=== PATIENT | female | born 1950 | race Caucasian/White ===

== ENCOUNTER → 2016-08-11 | Outpatient (CLI) | payer OTHER ==
--- NOTE | 2016-08-11 16:38 | MAMMOGRAPHY REPORT ---
BILATERAL DIGITAL SCREENING MAMMOGRAM WITH CAD: 08/11/2016 CLINICAL HISTORY: Routine screening. Patient has no complaints. TECHNIQUE: Bilateral CC and MLO views were obtained. Current study was also evaluated with a Comput er Aided Detection (CAD) system. COMPARISON: Comparison is made to exams dated: 08/08/2015 mammogram, 08/02/2014 mammogram, 08/01/2013 mammogram, 07/27/2012 mammogram, 07/24/2011 mammogram, and 07/22/2010 mammogram - [facility] [address]. BREAST COMPOSITION: The tissue of both breasts is heterogeneously dense, which may obscure small ma sses. FINDINGS: There is a stable grouping of coarse heterogeneous microcalcifications with associated nod ular asymmetry in the 5:00 to 6:00 posterior left breast. No new suspicious mass, architectural dis tortion or cluster of microcalcifications is seen bilaterally. IMPRESSION: ACR BI-RADS CATEGORY 1: NEGATIVE There is no mammographic evidence of malignancy. A 1 year screening mammogram is recommended. The p atient will receive written notification of the results. Approximately 10% of breast cancers are not detected with mammography. A negative mammographic repor t should not delay biopsy if a clinically suggestive mass is present. Heidy Roca M.D. ay/:08/11/2016 16:01:38 Account Installer: Bessy PEREIRA)(Quang), [facility] [address] letter sent: Normal 1/2 BI-RADS Code: ACR BI-RADS Category 1: Negative
== END | disposition home or self-care (01) ==
LOC: C.MAMM 09:21
PROVIDERS: ATTEND Obstetrics & Gynecology
DX: Z12.31 Encounter for screening mammogram for malignant neoplasm of breast (principal)

== ENCOUNTER → 2017-08-18 | Outpatient (CLI) | payer OTHER ==
--- NOTE | 2017-08-18 15:25 | MAMMOGRAPHY REPORT ---
BILATERAL DIGITAL SCREENING MAMMOGRAM TOMOSYNTHESIS WITH CAD: 08/18/2017 CLINICAL HISTORY: Routine screening. Patient has no complaints. TECHNIQUE: Breast tomosynthesis in addition to standard 2D mammography was performed. Current study was also evaluated with a Computer Aided Detection (CAD) system. COMPARISON: Comparison is made to exams dated: 08/11/2016 mammogram, 08/08/2015 mammogram, 08/02/2014 ma mmogram, 08/01/2013 mammogram, 07/27/2012 mammogram, and 07/24/2011 mammogram - [facility]. BREAST COMPOSITION: The tissue of both breasts is heterogeneously dense, which may obscure small mas ses. FINDINGS: There is a stable grouping of coarse heterogeneous calcifications and associated nodularity in the retroareolar posterior left breast. No suspicious mass, architectural distortion or cluster of microcalcifications is seen. IMPRESSION: ACR BI-RADS CATEGORY 1: NEGATIVE There is no mammographic evidence of malignancy. A 1 year screening mammogram is recommended. The pa tient will receive written notification of the results. Approximately 10% of breast cancers are not detected with mammography. A negative mammographic report should not delay biopsy if a clinically suggestive mass is present. Heidy Roca M.D. ay/:08/18/2017 14:10:47 [employer] Vulcanizer: Sandhya PEREIRA)(Quang), [facility] letter sent: Normal 1/2 BI-RADS Code: ACR BI-RADS Category 1: Negative
== END | disposition home or self-care (01) ==
LOC: C.MAMM 09:54
PROVIDERS: ATTEND Obstetrics & Gynecology
DX: Z12.31 Encounter for screening mammogram for malignant neoplasm of breast (principal)

== ENCOUNTER 2017-12-14 01:48 | Inpatient (IN) | payer OTHER ==
[2017-12-14] VITALS (42 sets, daily range): BP systolic 90–134; BP diastolic 44–83; PULSE 44–80; TEMP 36.7–36.9; O2SAT 95–100; Ht 165.1 cm; Wt 66.4 kg
[~2017-12-14] VITALS: Ht 165.1 cm; Wt 66.4 kg
[~2017-12-14 01:48] MED LIST: CALC600T9 PO; CHOL100010 PO; MULT-506 PO
[2017-12-14] MEDS ORDERED: ASPIRIN 324 MG CHEW PO STA (02:03)
[2017-12-14] MEDS ORDERED: SODIUM CHLORIDE 0.9% 1000ML 1,000 ML IV STA (02:03)
[2017-12-14] MEDS ORDERED: NITROGLYCERIN 0.4 MG SL PER TAB CHARGE ONE (02:04)
[2017-12-14] MEDS ORDERED: ASPIRIN 324 MG CHEW ONE (02:05)
--- NOTE | 2017-12-14 02:07 | EMERGENCY ROOM VISIT NOTE ---
History Report prepared by Yesy: Stephen Babb Under the Supervision of: Dr. Graham Ziegler M.D. First contact with patient: 01:55 Chief Complaint: CHEST PAIN Stated Complaint: CHEST PAIN/DISCOMFORT History of Present Illness The patient is a 67 year old female who presents to the Emergency Room with complaints of chest pain. The patient states she had the chest pain on Thursday while walking, and states it resolved. She states the pain came back today ( waxing and waning). She states she took Prilosec this evening and the pain resolved by dinner where she felt fine and had no pain, but states the pain came back this evening while she was asleep. She describes the pain as crushing , and notes radiation to her left shoulder. She did not nausea with the pain but denied SOB. She denies any significant past medical history. She denies taking ASA today. She denies a fever, chills, or any other complaints. The patient states she has had a previous stress test "years ago." The patient states she does have a significant cardiac history on her father's side. Review of Systems See HPI for pertinent positives & negatives. A total of 10 systems reviewed and were otherwise negative. Constitutional: No fever, No chills Respiratory: No cough, No shortness of breath Cardiovascular: + chest pain Abdomen: No pain, No nausea, No vomiting, No diarrhea, No constipation Integumentary: No rash Past Medical & Surgical Medical Problems: (1) AMI (acute myocardial infarction) Past Surgical: Hysterectomy Social History Smoking Status: Never Smoker Alcohol Use: occasionally (wine) Drug Use: none Occupation Status: retired Current/Historical Medications Scheduled Calcium Carbonate-Vitamin D (Calcium + D), 2 TAB PO QAM Cholecalciferol (Vitamin D), 1 TAB PO DAILY Multivitamin (Multivitamin), 1 TAB PO DAILY Allergies Coded Allergies: Penicillins (Verified Allergy, Severe, RASH, 12/14/17) Physical Exam Vital Signs Date Time Temp Pulse Resp B/P (MAP) Pulse Ox O2 Delivery O2 Flow Rate FiO2 12/14/17 03:25 36.7 77 18 101/51 99 Room Air 12/14/17 03:25 80 18 112/53 (72) 100 Room Air 12/14/17 03:15 84 18 113/64 (80) 100 Room Air 12/14/17 02:40 45 14 88/49 95 12/14/17 02:36 48 13 88/49 93 Nasal Cannula 2.0 12/14/17 02:35 49 12/14/17 02:32 70 25 118/71 93 Nasal Cannula 2.0 12/14/17 02:26 72 21 127/68 99 Nasal Cannula 2.0 12/14/17 02:26 74 18 127/68 98 Nasal Cannula 2.0 12/14/17 02:21 80 26 125/61 98 Nasal Cannula 2.0 12/14/17 02:16 74 16 138/70 99 Nasal Cannula 2.0 12/14/17 02:13 77 16 127/79 97 Nasal Cannula 2.0 12/14/17 02:06 98 Nasal Cannula 2.0 12/14/17 02:04 74 12/14/17 01:52 36.5 68 18 133/64 97 Room Air Physical Exam GENERAL: Anxious appearing and in mild distress. EYES: No scleral icterus, unremarkable pupils. ENT: Mucous membranes moist, no nasal congestion. NECK: No masses appreciated, no meningismus, trachea is midline. RESPIRATORY: No dyspnea. Clear to auscultation and equal bilaterally. No wheeze , no rhonchi. CARDIOVASCULAR: Regular rate and rhythm. No murmurs, rubs, gallops appreciated. GASTROINTESTINAL: Abdomen soft, nontender, no peritonitis. Bowel sounds positive. No masses appreciated. BACK: No midline tenderness, no CVA tenderness EXTREMITIES: Normal motion all extremities, no cyanosis, no edema. NEUROLOGIC: Alert and oriented, no acute motor or sensory deficits, no focal weakness, cranial nerves grossly intact. SKIN: No rash, no jaundice, no diaphoresis. Medical Decision & Procedures ER Provider Diagnostic Interpretation: X ray results are stated below per my interpretation: Chest: 1 view: No infiltrate, no effusion, normal cardiac border. Laboratory Results 12/14/17 02:05 Red Blood Count 4.33, Mean Corpuscular Volume 88.7, Mean Corpuscular Hemoglobin 28.9, Mean Corpuscular Hemoglobin Concent 32.6, Mean Platelet Volume 9.6, Neutrophils (%) (Auto) 71.9, Lymphocytes (%) (Auto) 20.5, Monocytes (%) (Auto) 5.3, Eosinophils (%) (Auto) 1.6, Basophils (%) (Auto) 0.5, Neutrophils # (Auto) 6.38, Lymphocytes # (Auto) 1.82, Monocytes # (Auto) 0.47, Eosinophils # (Auto) 0.14, Basophils # (Auto) 0.04 12/14/17 02:05 Test 12/14/17 02:05 12/14/17 02:09 12/14/17 02:16 12/14/17 03:04 White Blood Count 8.87 K/uL (4.8-10.8) Red Blood Count 4.33 M/uL (4.2-5.4) Hemoglobin 12.5 g/dL (12.0-16.0) Hematocrit 38.4 % (37-47) Mean Corpuscular Volume 88.7 fL (80-100) Mean Corpuscular Hemoglobin 28.9 pg (25-34) Mean Corpuscular Hemoglobin Concent 32.6 g/dl (32-36) Platelet Count 327 K/uL (130-400) Mean Platelet Volume 9.6 fL (7.4-10.4) Neutrophils (%) (Auto) 71.9 % Lymphocytes (%) (Auto) 20.5 % Monocytes (%) (Auto) 5.3 % Eosinophils (%) (Auto) 1.6 % Basophils (%) (Auto) 0.5 % Neutrophils # (Auto) 6.38 K/uL (1.4-6.5) Lymphocytes # (Auto) 1.82 K/uL (1.2-3.4) Monocytes # (Auto) 0.47 K/uL (0.11-0.59) Eosinophils # (Auto) 0.14 K/uL (0-0.5) Basophils # (Auto) 0.04 K/uL (0-0.2) RDW Standard Deviation 44.1 fL (36.4-46.3) RDW Coefficient of Variation 13.4 % (11.5-14.5) Immature Granulocyte % (Auto) 0.2 % Immature Granulocyte # (Auto) 0.02 K/uL (0.00-0.02) Prothrombin Time 10.5 SECONDS (9.0-12.0) Prothromb Time International Ratio 1.0 (0.9-1.1) Activated Partial Thromboplast Time 25.0 SECONDS (21.0-31.0) Partial Thromboplastin Ratio 1.0 Est Creatinine Clear Calc Drug Dose 54.0 ml/min Estimated GFR () 69.6 Estimated GFR (Non- 60.0 BUN/Creatinine Ratio 26.1 (10-20) Calcium Level 9.0 mg/dl (8.5-10.1) Total Creatine Kinase 91 U/L (26-192) Creatine Kinase MB 1.8 ng/ml (0.5-3.6) Creatine Kinase MB Ratio 2.0 (0-3.0) LDL Cholesterol Direct 134 mg/dl Bedside Hemoglobin 12.6 g/dl (12.0-16.0) Bedside Hematocrit 37 % (37-47) Bedside Sodium 142 mEq/L (135-144) Bedside Potassium 3.7 mEq/L (3.3-5.0) Bedside Chloride 102 mEq/L (101-112) Bedside Total CO2 27 mEq/l (24-31) Anion Gap 18.0 mmol/L (16-25) Bedside Blood Urea Nitrogen 25 mg/dl (7-18) Bedside Creatinine 1.0 mg/dl (0.6-1.3) Bedside Glucose (other) 119 mg/dl (70-99) Bedside Ionized Calcium (Liliam) 1.17 mmol/l (1.12-1.32) Bedside Troponin I < 0.030 ng/ml (0-0.045) Kaolin Activated Coagulation Time 186 SECONDS (94-140) Medications Administered Medications (Trade) Dose Ordered Sig/Frida Route Start Time Stop Time Status Last Admin Dose Admin Sodium Chloride 1,000 ml @ 999 mls/hr Q1H1M STAT IV 12/14/17 02:03 12/14/17 03:03 DC 12/14/17 02:09 999 MLS/HR Nitroglycerin (Nitrostat Tab) 0.4 mg Q5M PRN SL 12/14/17 02:15 12/14/17 03:39 DC 12/14/17 02:09 0.4 MG Aspirin (Aspirin Chew) 324 mg NOW STAT PO 12/14/17 02:03 12/14/17 02:05 DC 12/14/17 02:09 324 MG Midazolam HCl (Versed Inj) 2 mg STK-MED ONCE .ROUTE 12/14/17 02:32 12/14/17 02:33 DC 12/14/17 02:32 1 MG Fentanyl Citrate (Fentanyl Inj) 100 mcg STK-MED ONCE .ROUTE 12/14/17 02:32 12/14/17 02:33 DC 12/14/17 02:32 25 MCG Heparin Sodium (Porcine) (Heparin Iv Bolus) 10,000 unit STK-MED ONCE .ROUTE 12/14/17 02:32 12/14/17 02:33 DC 12/14/17 02:32 11,000 UNIT Ondansetron HCl (Zofran Inj) 4 mg STK-MED ONCE .ROUTE 12/14/17 03:02 12/14/17 03:03 DC 12/14/17 03:02 4 MG Atropine Sulfate (Atropine Sulfate) 1 mg STK-MED ONCE .ROUTE 12/14/17 03:12 12/14/17 03:13 DC 12/14/17 03:12 1 MG Ticagrelor (Brilinta Tab) 180 mg STK-MED ONCE PO 12/14/17 03:21 12/14/17 03:22 DC 12/14/17 03:21 180 MG ECG Per My Interpretation Rate (beats per minute): 64 Findings: ST elevation (Inferior), other (reciprocal changes noted. QTC 412) Comparison ECG Date: Inferior NE is new Medical Decision Ms. Mooyd is a pleasant 67 year old female who reports with chest pain. Pain was waxing and waning all day, and did resolve by dinner. Pain returned after dinner and worsened after taking Prilosec. New inferior NE noted on EKG when compared to prior. No previous EKG for comparison. She has minimal risk factors. Stuttering unstable angina over last few days with acute STEMI now. Heart alert called on arrival. Given SLNTG x 2 with resolve of CP. NSS infusion. Did have episode bradycardia/hypotension as going over to builder's labourer for with bolus fluids started. No evidence dissection and symptoms not consistent with PE. Differential Diagnosis: Cardiac Ischemia (STEMI, NSTEMI, Unstable Angina, etc), Aortic Dissection, Arrhythmia, Pulmonary Embolism, Pneumonia, Pneumothorax, MSK, Infectious, Pericarditis/Myocarditis, Esophageal Rupture, Gastrointestinal, amongst other pathologies entertained. Rechecks: 0215: Patient notes pain is now at a 3/10 and is no longer radiating. She denies abdominale or back pain. 0235: Patient became hypotensive and bradycardic just prior to going to [employer]. She was given a liter of IV fluids, and taken to the builder's labourer immediately under Dr. Brunson and Dr. Anaya's care. 0316: Patient is doing much better in the [employer] Medication Reconcilliation Current Medication List: was personally reviewed by me Blood Pressure Screening Patient's blood pressure: Normal blood pressure Impression Primary Impression: Acute ST elevation myocardial infarction (STEMI) of inferior wall Critical Care I have personally spent greater than 45 minutes of critical care time in the direct management of this patient. This was a life/limb threatening event. This includes time spent evaluating patient, direct bedside care, chart review, placing orders, interpretation of diagnostic studies, discussion with consultants, patient, and family members, as well as other required patient management activities. This 45 minutes is in excess of all separately billable procedures. Scribe Attestation The scribe's documentation has been prepared under my direction and personally reviewed by me in its entirety. I confirm that the note above accurately reflects all work, treatment, procedures, and medical decision making performed by me. Departure Information Dispostion Other (Sent to [employer]) Referrals Samson Gómez M.D. (PCP) Patient Instructions My [facility]
[2017-12-14] MEDS ORDERED: NITROGLYCERIN 0.4 MG SL PER TAB CHARGE SL PRN ×2 (02:15→03:45)
[2017-12-14 02:16] LABS: BASO % 0.5 %; BASO ABS # 0.04 K/uL (0-0.2); EOS % 1.6 %; EOS ABS # 0.14 K/uL (0-0.5); HEMATOCRIT 38.4 % (37-47); HEMOGLOBIN 12.5 g/dL (12.0-16.0); IG# 0.02 K/uL (0.00-0.02); LYMPH % 20.5 %; LYMPH ABS # 1.82 K/uL (1.2-3.4); MEAN CELL VOLUME 88.7 fL (80-100); MEAN CORPUSCULAR HEMOGLOBIN 28.9 pg (25-34); MEAN CORPUSCULAR HGB CONC 32.6 g/dl (32-36); MEAN PLATELET VOLUME 9.6 fL (7.4-10.4); MONO % 5.3 %; MONO ABS # 0.47 K/uL (0.11-0.59); NEUT % 71.9 %; NEUT ABS # 6.38 K/uL (1.4-6.5); PLATELET COUNT 327 K/uL (130-400); RED CELL DISTRIBUTION WIDTH CV 13.4 % (11.5-14.5); RED CELL DISTRIBUTION WIDTH SD 44.1 fL (36.4-46.3); WHITE BLOOD COUNT 8.87 K/uL (4.8-10.8)
[2017-12-14 02:22] LABS: ISTAT IONIZED CALCIUM 1.17 mmol/l (1.12-1.32); ISTAT POTASSIUM 3.7 mEq/L (3.3-5.0)
[2017-12-14] MEDS ORDERED: HEPARIN SOD (PORCINE) 1000 UNIT/ML 10 ML VIAL ONE (02:32)
[2017-12-14] MEDS ORDERED: NiCARDipine HCL INJ 2.5 MG/ML 10 ML AMP ONE (02:32)
[2017-12-14] MEDS ORDERED: FENTANYL CITRATE INJ 50 MCG/1 ML 2 ML VIAL ONE (02:32)
[2017-12-14] MEDS ORDERED: NITROGLYCERIN/D5W 100MCG/ML 20ML SYR ONE (02:32)
[2017-12-14] MEDS ORDERED: MIDAZOLAM HCL 1 MG/ML 2ML VIAL ONE (02:32)
--- NOTE | 2017-12-14 02:35 | Critical Care Consultation ---
Critical Care Consultation Date of Consultation: Dec 14, 2017. Attending Physician: Fazal Joseph MD Reason for Consultation: Post cardiac cath History of Present Illness Patient is a 67-year-old female without significant past medical history who presented to [facility] emergency department with chief complaint of chest pain. It started initially on Thursday with walking and resolved with rest. It was increasing in severity today. The pain came back this evening and awoke her from sleep, the pain is described as crushing and radiating to the left shoulder. There was no nausea, no dyspnea. Past Medical/Surgical History None Social History Smoking Status: Never Smoker Alcohol Use: Approximately daily glass of wine, no history of withdrawal Drug Use: none Occupation Status: retired (Former cardiac nurse) Allergies Coded Allergies: Penicillins (Verified Allergy, Severe, RASH, 12/14/17) Home Medications Scheduled Calcium Carbonate-Vitamin D (Calcium + D), 2 TAB PO QAM Cholecalciferol (Vitamin D), 1 TAB PO DAILY Multivitamin (Multivitamin), 1 TAB PO DAILY Current Inpatient Medications Current Inpatient Medications Medications (Trade) Dose Ordered Sig/Frida Route Start Time Stop Time Status Last Admin Dose Admin Sodium Chloride 1,000 ml @ 999 mls/hr Q1H1M STAT IV 12/14/17 02:03 12/14/17 03:03 12/14/17 02:09 999 MLS/HR Nitroglycerin (Nitrostat Tab) 0.4 mg Q5M PRN SL 12/14/17 02:15 01/13/18 02:14 12/14/17 02:09 0.4 MG Review of Systems A 10 point review of systems has been obtained and is otherwise negative. Respiratory: No cough, No sputum, No wheezing, No shortness of breath, No dyspnea on exertion, No dyspnea at rest, No hemoptysis, No problem reported Cardiovascular: + chest pain, No edema, No claudication, No palpitations Abdomen: No pain, No nausea, No vomiting, No diarrhea, No constipation, No GI bleeding, No problem reported Physical Exam Date Time Temp Pulse Resp B/P (MAP) Pulse Ox O2 Delivery O2 Flow Rate FiO2 12/14/17 02:13 77 16 127/79 97 Nasal Cannula 2.0 12/14/17 02:04 74 12/14/17 01:52 36.5 68 18 133/64 97 Room Air General Appearance: well-appearing, WD/WN Head: normocephalic, atraumatic Neck: normal range of motion, trachea midline, no stridor Respiratory: breath sounds normal Cardiovasular: regular rate/rhythm, normal S1S2 Abdomen: non tender, normal bowel sounds Upper Extremities: no edema Lower Extremities: no edema Neuro: alert, oriented x 3, normal motor exam Laboratory Results Last 24 Hours Test 12/14/17 02:05 12/14/17 02:09 12/14/17 02:16 White Blood Count 8.87 K/uL Red Blood Count 4.33 M/uL Hemoglobin 12.5 g/dL Hematocrit 38.4 % Mean Corpuscular Volume 88.7 fL Mean Corpuscular Hemoglobin 28.9 pg Mean Corpuscular Hemoglobin Concent 32.6 g/dl Platelet Count 327 K/uL Mean Platelet Volume 9.6 fL Neutrophils (%) (Auto) 71.9 % Lymphocytes (%) (Auto) 20.5 % Monocytes (%) (Auto) 5.3 % Eosinophils (%) (Auto) 1.6 % Basophils (%) (Auto) 0.5 % Neutrophils # (Auto) 6.38 K/uL Lymphocytes # (Auto) 1.82 K/uL Monocytes # (Auto) 0.47 K/uL Eosinophils # (Auto) 0.14 K/uL Basophils # (Auto) 0.04 K/uL RDW Standard Deviation 44.1 fL RDW Coefficient of Variation 13.4 % Immature Granulocyte % (Auto) 0.2 % Immature Granulocyte # (Auto) 0.02 K/uL Prothrombin Time 10.5 SECONDS Prothromb Time International Ratio 1.0 Activated Partial Thromboplast Time 25.0 SECONDS Partial Thromboplastin Ratio 1.0 Sodium Level 140 mmol/L Potassium Level 3.6 mmol/L Chloride Level 105 mmol/L Carbon Dioxide Level 28 mmol/L Anion Gap 7.0 mmol/L 18.0 mmol/L Blood Urea Nitrogen 25 mg/dl Creatinine 0.97 mg/dl Est Creatinine Clear Calc Drug Dose 54.0 ml/min Estimated GFR () 69.6 Estimated GFR (Non- 60.0 BUN/Creatinine Ratio 26.1 Random Glucose 117 mg/dl Calcium Level 9.0 mg/dl Total Creatine Kinase 91 U/L Creatine Kinase MB 1.8 ng/ml Creatine Kinase MB Ratio 2.0 Troponin I 0.045 ng/ml Bedside Hemoglobin 12.6 g/dl Bedside Hematocrit 37 % Bedside Sodium 142 mEq/L Bedside Potassium 3.7 mEq/L Bedside Chloride 102 mEq/L Bedside Total CO2 27 mEq/l Bedside Blood Urea Nitrogen 25 mg/dl Bedside Creatinine 1.0 mg/dl Bedside Glucose (other) 119 mg/dl Bedside Ionized Calcium (Liliam) 1.17 mmol/l Bedside Troponin I < 0.030 ng/ml Last 24 Hours Test 12/14/17 02:03 12/14/17 02:05 12/14/17 02:09 12/14/17 02:16 Creatine Kinase MB Ratio White Blood Count 8.87 K/uL Red Blood Count 4.33 M/uL Hemoglobin 12.5 g/dL Hematocrit 38.4 % Mean Corpuscular Volume 88.7 fL Mean Corpuscular Hemoglobin 28.9 pg Mean Corpuscular Hemoglobin Concent 32.6 g/dl Platelet Count 327 K/uL Mean Platelet Volume 9.6 fL Neutrophils (%) (Auto) 71.9 % Lymphocytes (%) (Auto) 20.5 % Monocytes (%) (Auto) 5.3 % Eosinophils (%) (Auto) 1.6 % Basophils (%) (Auto) 0.5 % Neutrophils # (Auto) 6.38 K/uL Lymphocytes # (Auto) 1.82 K/uL Monocytes # (Auto) 0.47 K/uL Eosinophils # (Auto) 0.14 K/uL Basophils # (Auto) 0.04 K/uL RDW Standard Deviation 44.1 fL RDW Coefficient of Variation 13.4 % Immature Granulocyte % (Auto) 0.2 % Immature Granulocyte # (Auto) 0.02 K/uL Bedside Hemoglobin 12.6 g/dl Bedside Hematocrit 37 % Bedside Sodium 142 mEq/L Bedside Potassium 3.7 mEq/L Bedside Chloride 102 mEq/L Bedside Total CO2 27 mEq/l Anion Gap 18.0 mmol/L Bedside Blood Urea Nitrogen 25 mg/dl Bedside Creatinine 1.0 mg/dl Bedside Glucose (other) 119 mg/dl Bedside Ionized Calcium (Liliam) 1.17 mmol/l Bedside Troponin I < 0.030 ng/ml Diagnostic Results Reviewed the chest x-ray dated December 14, 2017: My interpretation no acute disease process. Assessment & Plan PLAN: Neuro: Chest pain -Nitrates with morphine as needed for pain Resp: Supplemental oxygen as needed CV: Acute myocardial infarction -Discussed with cardiology -Status post successful PCI -Trend troponins -Aspirin given in the emergency department -High-dose statin Fluids/Renal: Maintenance fluid ID: No overt infectious disease concerns at this time GI/Nutrition: Check fasting lipid profile Endocrine: Hyperglycemia -Check A1c Vascular access: Peripheral IVs Code Status: Full code
[2017-12-14 02:39] LABS: CKMB 1.8 ng/ml (0.5-3.6); CREATININE 0.97 mg/dl (0.60-1.20); POTASSIUM 3.6 mmol/L (3.5-5.1)
[2017-12-14] MEDS ORDERED: ONDANSETRON INJ 2 MG/ML 2 ML VIAL ONE (03:02)
[2017-12-14] MEDS ORDERED: ATROPINE SULFATE 0.1 MG/ML 10 ML SYR ONE (03:12)
--- NOTE | 2017-12-14 03:15 | CARDIOLOGY CONSULTATION ---
DATE OF CONSULTATION: 12/14/2017 CONSULTATION REQUESTED BY: Dr. Ziegler. REASON FOR CONSULTATION: Heart alert/inferior NSTEMI. HISTORY OF PRESENT ILLNESS: Mrs. Moody is a very pleasant 67-year-old woman with no real past medical history who presented to the Emergency Department tonight with acute onset chest pain, found to have inferior ST elevations on her presenting EKG. The patient states that she has been having intermittent chest discomfort for the last 48 hours. Pain most notable with exertion, stating that she was walking around [facility] on Thursday, 2 days ago, and noted initially the discomfort. Yesterday while out in the hot sun, again had an episode of chest pain for which she took antacids, but pain relieved quickly. Tonight at approximately midnight, patient was awoken with severe 9/10 chest pressure with some radiation to her left arm and as a result presented to the Emergency Department acutely. In the ED, initial EKG showed inferior ST elevations and a heart alert was activated. She was given sublingual nitroglycerin with relief of chest pain. PAST MEDICAL HISTORY: No significant medical problems. Reports a prior episode of atypical chest pain in 2000 during which she had a stress test which reportedly was negative. FAMILY HISTORY: Heart disease on father's side, but father had no premature coronary artery disease. SOCIAL HISTORY: Denies heavy alcohol or illicit drugs. Previously worked as an ICU nurse at [employer], now retired. Her was a bridal gown fitter, but 20 years ago. REVIEW OF SYSTEMS: Not obtained in the setting of emergent situation. HOME MEDICATIONS: Include calcium carbonate/vitamin D, cholecalciferol, multivitamin. ALLERGIES: PENICILLINS. PHYSICAL EXAMINATION: VITAL SIGNS: Temperature 36.5, pulse 72, blood pressure 127/68, satting 99% on 2 liters. GENERAL: The patient appears comfortable in no acute distress. HEENT: Sclerae are anicteric. Oropharynx is clear. Mucous membranes are moist. NECK: Supple with no lymphadenopathy. LUNGS: Clear to auscultation bilaterally. CARDIAC: She has a regular rate and rhythm with no murmurs, rubs, or gallops. ABDOMEN: Soft, nontender, nondistended with positive bowel sounds. EXTREMITIES: Warm. She has no significant lower extremity edema. She has 2+ distal radial pulses. LABORATORY DATA: White blood cell count 8.9, hemoglobin of 12.5, platelets of 327. Sodium 142, potassium 3.7, BUN of 25, creatinine 1.0. Initial troponin was negative. Chest x-ray showed no acute cardiopulmonary process. IMPRESSION AND PLAN: Inferior ST segment elevation myocardial infarction. Mrs. Moody is here with stuttering chest pain over the last 2 days, becoming more severe and persistent this evening with presenting EKG consistent with inferior STEMI. We will plan to proceed with emergent cardiac catheterization to evaluate for potential RCA occlusion. Risks, benefits, and alternatives to the procedure were discussed with patient and she is willing to proceed. Further recommendations pending findings of cardiac catheterization. JERALD
--- NOTE | 2017-12-14 03:20 | Pre Sedation Assessment ---
Pre Sedation Assessment General Date of Sedation: Dec 14, 2017. Vital Signs Past 12 Hours Date Time Temp Pulse Resp B/P (MAP) Pulse Ox O2 Delivery O2 Flow Rate FiO2 12/14/17 02:40 45 14 88/49 95 12/14/17 02:36 48 13 88/49 93 Nasal Cannula 2.0 12/14/17 02:35 49 12/14/17 02:32 70 25 118/71 93 Nasal Cannula 2.0 12/14/17 02:26 72 21 127/68 99 Nasal Cannula 2.0 12/14/17 02:26 74 18 127/68 98 Nasal Cannula 2.0 12/14/17 02:21 80 26 125/61 98 Nasal Cannula 2.0 12/14/17 02:16 74 16 138/70 99 Nasal Cannula 2.0 12/14/17 02:13 77 16 127/79 97 Nasal Cannula 2.0 12/14/17 02:06 98 Nasal Cannula 2.0 12/14/17 02:04 74 12/14/17 01:52 36.5 68 18 133/64 97 Room Air Review Cardiovascular: regular rate, rhythm, no edema Lungs: chest non-tender, lungs clear Pre-Sedation Airway Assessment Smoking Status: Never Smoker Hx of Sleep Apnea: No Hx of difficult intubation: No Short Thick Neck: No Thyro-mental Distance: > 3 Finger Breadths Mallampati Classification: Class III ASA Classification: Class IV Procedure Planning Contraindications for Sedation: None Current Medications Reviewed: Yes Notes The planned sedation has been discussed with the patient. Informed Consent was obtained. I have identified the patient, determined the appropriateness of sedation and have assessed the patient immediately prior to the procedure. All medicine(s) and interventions are by my order.
--- NOTE | 2017-12-14 03:20 | Post Sedation Assessment ---
Post Sedation Assessment General Date of Sedation Dec 14, 2017. Vital Signs: Vital Signs Past 12 Hours Date Time Temp Pulse Resp B/P (MAP) Pulse Ox O2 Delivery O2 Flow Rate FiO2 12/14/17 02:40 45 14 88/49 95 12/14/17 02:36 48 13 88/49 93 Nasal Cannula 2.0 12/14/17 02:35 49 12/14/17 02:32 70 25 118/71 93 Nasal Cannula 2.0 12/14/17 02:26 72 21 127/68 99 Nasal Cannula 2.0 12/14/17 02:26 74 18 127/68 98 Nasal Cannula 2.0 12/14/17 02:21 80 26 125/61 98 Nasal Cannula 2.0 12/14/17 02:16 74 16 138/70 99 Nasal Cannula 2.0 12/14/17 02:13 77 16 127/79 97 Nasal Cannula 2.0 12/14/17 02:06 98 Nasal Cannula 2.0 12/14/17 02:04 74 12/14/17 01:52 36.5 68 18 133/64 97 Room Air Post Procedure Recovery Score Activity: (2) Moves 4 extremities * Respiration: (2) Deep breath/cough Circulation: (2) +/-20% PreAnes Value Consciousness: (2) Fully Awake Oxygen Saturation: (2) > 92% On Room Air Post Anesthesia Score: 10 Discharge Sedation Level of Care: Fast Track Phase II Post Sedation Plan On clinical assessment, the patient appears to have tolerated the sedation without complications. Patient is recovering as anticipated. Patient will continue to be monitored by nursing and may be discharged when sedation discharge criteria are met per below protocol. Upon Completions of procedure and additional 15 minutes continue every 5 minute vital signs and the P.A.R. score; then discharge to a Phase I or Fast Track to Phase II per the following guidelines: * Discharge Patient to appropriate Phase II area if PAR is 8 or greater or return to pre- procedure baseline. The post - procedure orders will be as directed. * If PAR score is less than 8 or not return to pre-procedure baseline then patient will follow Phase I monitoring till PAR is reached for Phase II. The Phase I may be done in procedure room or may call to secure a Phase I area. * If naloxone or flumazenil are used for reversal, hold in Phase I for an additional 60 -120 minutes before discharge to Phase II. Please call the Sedation Physician to re-evaluate and complete post-note for discharge to Phase II area. Do NOT discharge from procedure sedation or Phase 1 until post- sedation evaluation note is complete by procedure /sedation MD Sedation Discharge Instructions to be given to the patient at discharge to home.
[2017-12-14] MEDS ORDERED: TICAGRELOR 90 MG TAB PO ONE (03:21)
--- NOTE | 2017-12-14 03:31 | Cardiac Catheterization ---
Procedure Note Procedure Date Dec 14, 2017. Pre-Procedure Diagnosis STEMI AUC Score 9 Post-Procedure Diagnosis Severe CAD, Successful PCI, Normal LV Systolic Function, Normal Intracardiac Pressures Procedure(s) Performed Coronary Angiography, Left Heart Cath, Drug Eluting Stent Handmade Tile Artist Boy Single Needle Operator(s) contino Estimated Blood Loss <15 Medication(s) Atropine, Fentanyl, Heparin, Nicardipine, Versed, Lidocaine 1% Ticagrelor Summary of Findings Indication: STEMI/Heart Alert Access: 6Fr right radial artery Catheters: Ikari 3.5 guide Findings: LM - Luminal irregularities LAD - Moderate caliber vessel, 50% mid segment stenosis after 2nd diagonal; distal vessel tapers to apex. 2nd diagonal without significant disease. LAD gives left to right collaterals to R-PDA/PLB. Circumflex - Moderate caliber vessel, gives off large OM1 with 30-40% proximal disease. RCA - Dominant, large caliber vessel, diffuse 20-30% mid segment disease; acute subtotal occlusion of distal segment with thrombus. LVEDP - 11; LVEF 55% with inferior hypokinesis -- PCI -- Antithrombotic therapy: Heparin, Ticagrelor Procedure: RCA cannulated with Ikari left 3.5 guide BMW wire passed across lesion into R-PLB Distal RCA lesion predilated with 2.5 compliant balloon Atropine for bradycardia, fluids for relative hypotension. Dilated lesion stented with 3.5 x 18 [place] TIN Stent post-dilated with 3.75 noncompliant balloon IC vasodilators administered for spasm Post procedure HEBER 3 flow, stent well expanded with minimal residual stenosis and no apparent cardiac complications. Arterial Closure: TR Band Summary: 1. Inferior STEMI/Acute on chronic subtotal distal RCA occlusion 2. Mild to moderate non-culprit vessel coronary artery disease - 50% mid LAD - 30-40% proximal OM1 3. Normal intracardiac filling pressure. Preserved LV function. 4. Successful PCI of distal RCA with single drug-eluting stent (3.5 x 18 [place] TIN; post-dilated with 3.75 NC). Recommendations: Admit to ICU for continued monitoring Loaded with Ticagrelor 180mg in label sewer Continue dual-antiplatelet therapy for at least 1 year. Trend troponins until peak, Check Echo Uptitrate beta-cheyenne/ANDREW as BP allows High-dose statin Consult cardiac Rehab Hemodynamics Rest Ao: 108/44/73 Final Ao: 105/47/73 LV: 108/11 Recommendations PCI without planned CABG Specimens None Radiation Exposure (mGy) 1749 Contrast (mls) 100 Opti Fluids (cc crystalloids) 280 NSS Drains none Anesthesia moderate Procedural Complication(s) None Disposition ICU ACC Data Cardiac Status Clinical evaluation leading to the procedure CAD Presntation: STEMI Anginal Classification: CCS IV Heart Failure: No, NYHA Class: CCS I Cardiogenic Shock w/in 24Hrs: No Cardiac Arrest w/in 24Hrs: No Imaging studies past 6 months: No Stress studies past 6 months: No Closure Device Percutaneous Entry Location: Radial Closure Device: Radial Band Recommendations: PCI without planned CABG PCI Indication: Immediate PCI for STEMI Lesion Segment Name: Distal RCA Culprit Artery: Yes Stenosis Prior to Rx (%): 100 Chronic Total Occlusion: No IVUS: No FFR: No Pre-Procedure HEBER Flow: 0 Previously Treated Lesion: No Lesion Complexity: Non-High/Non-C Lesion Length (mm): 12 Thrombus Present: Yes Bifurcation Lesion: No Guidewire Across Lesion: Yes Guidewire: Stenosis Post-Procedure (%): 0 Post-Procedure HEBER Flow: 3 Device(s) Deployed: Yes Intraprocedure Events Significant Dissection: No Perforation: No
[2017-12-14] MEDS ORDERED: ACETAMINOPHEN 325 MG TAB PO PRN (03:45)
[2017-12-14] MEDS ORDERED: ONDANSETRON INJ 2 MG/ML 2 ML VIAL IV PRN (03:45)
[2017-12-14] MEDS ORDERED: SODIUM CHLORIDE 0.9% 1000ML 1,000 ML IV SCH (04:00)
--- NOTE | 2017-12-14 04:18 | History and Physical ---
History & Physical Date & Time of Service: Dec 14, 2017 at 04:02 Chief Complaint: AMI Primary Care Physician: Samson Gómez M.D. History of Present Illness Source: patient Patient is an 83 year old female with no significant past medical history that presented to [facility] with chest pain. She notes that chest pain began two days ago when she was walking in [place]. It went away with rest. The chest pain has been coming and going since then and lasting several minutes at a time. She did take an antacid which helped with the pain. At approximately 11pm last night she started having 9/10 chest pain which woke her from her sleep. This pain now radiated to her jaw and down her left arm therefore she came to the ED. She did have associated shortness of breath with the chest pain. In the ED her EKG showed ST depressions. She had a drop in her systolic blood pressure to the 80' s in the ED therefore she was taken immediately to the corn lab technician. She was found to have a occlusion of her RCA and had a stent placed. She was then transferred to the ICU for further monitoring. Past Medical/Surgical History Medical Problems: (1) AMI (acute myocardial infarction) Family History Fathers side with many relatives with heart disease. Social History Smoking Status: Never Smoker Alcohol Use: Approximately daily glass of wine, no history of withdrawal Drug Use: none Housing status: lives alone Occupational Status: retired (Former cardiac nurse) Allergies Coded Allergies: Penicillins (Verified Allergy, Severe, RASH, 12/14/17) Home Medications Scheduled Calcium Carbonate-Vitamin D (Calcium + D), 2 TAB PO QAM Cholecalciferol (Vitamin D), 1 TAB PO DAILY Multivitamin (Multivitamin), 1 TAB PO DAILY Review of Systems 10 systems reviewed and negative except as noted in the HPI Physical Exam Vital Signs Date Time Temp Pulse Resp B/P (MAP) Pulse Ox O2 Delivery O2 Flow Rate FiO2 12/14/17 03:25 80 18 112/53 (72) 100 Room Air 12/14/17 03:15 84 18 113/64 (80) 100 Room Air 12/14/17 02:40 45 14 88/49 95 12/14/17 02:36 48 13 88/49 93 Nasal Cannula 2.0 12/14/17 02:35 49 12/14/17 02:32 70 25 118/71 93 Nasal Cannula 2.0 12/14/17 02:26 72 21 127/68 99 Nasal Cannula 2.0 12/14/17 02:26 74 18 127/68 98 Nasal Cannula 2.0 12/14/17 02:21 80 26 125/61 98 Nasal Cannula 2.0 12/14/17 02:16 74 16 138/70 99 Nasal Cannula 2.0 12/14/17 02:13 77 16 127/79 97 Nasal Cannula 2.0 12/14/17 02:06 98 Nasal Cannula 2.0 12/14/17 02:04 74 12/14/17 01:52 36.5 68 18 133/64 97 Room Air General Appearance: WD/WN, no apparent distress ENT: hearing grossly normal, pharynx normal Neck: supple, no adenopathy, no JVD Respiratory/Chest: lungs clear, no respiratory distress, no accessory muscle use Cardiovascular: regular rate, rhythm, normal peripheral pulses, + systolic murmur (2/6 at the LUSB) Abdomen/GI: normal bowel sounds, non tender, soft Back: normal inspection, no muscle spasm Extremities/Musculoskelatal: normal inspection, no calf tenderness, no pedal edema, non-tender Neurologic/Psych: alert, normal mood/affect, oriented x 3 Skin: normal color, warm/dry, no rash Diagnostics Laboratory Results Results Past 24 Hours Test 12/14/17 02:05 12/14/17 02:09 12/14/17 02:16 12/14/17 03:04 Range/Units White Blood Count 8.87 4.8-10.8 K/uL Red Blood Count 4.33 4.2-5.4 M/uL Hemoglobin 12.5 12.0-16.0 g/dL Hematocrit 38.4 37-47 % Mean Corpuscular Volume 88.7 80-100 fL Mean Corpuscular Hemoglobin 28.9 25-34 pg Mean Corpuscular Hemoglobin Concent 32.6 32-36 g/dl Platelet Count 327 130-400 K/uL Mean Platelet Volume 9.6 7.4-10.4 fL Neutrophils (%) (Auto) 71.9 % Lymphocytes (%) (Auto) 20.5 % Monocytes (%) (Auto) 5.3 % Eosinophils (%) (Auto) 1.6 % Basophils (%) (Auto) 0.5 % Neutrophils # (Auto) 6.38 1.4-6.5 K/uL Lymphocytes # (Auto) 1.82 1.2-3.4 K/uL Monocytes # (Auto) 0.47 0.11-0.59 K/uL Eosinophils # (Auto) 0.14 0-0.5 K/uL Basophils # (Auto) 0.04 0-0.2 K/uL RDW Standard Deviation 44.1 36.4-46.3 fL RDW Coefficient of Variation 13.4 11.5-14.5 % Immature Granulocyte % (Auto) 0.2 % Immature Granulocyte # (Auto) 0.02 0.00-0.02 K/uL Prothrombin Time 10.5 9.0-12.0 SECONDS Prothromb Time International Ratio 1.0 0.9-1.1 Activated Partial Thromboplast Time 25.0 21.0-31.0 SECONDS Partial Thromboplastin Ratio 1.0 Sodium Level 140 136-145 mmol/L Potassium Level 3.6 3.5-5.1 mmol/L Chloride Level 105 98-107 mmol/L Carbon Dioxide Level 28 21-32 mmol/L Anion Gap 7.0 18.0 16-25 mmol/L Blood Urea Nitrogen 25 7-18 mg/dl Creatinine 0.97 0.60-1.20 mg/dl Est Creatinine Clear Calc Drug Dose 54.0 ml/min Estimated GFR () 69.6 Estimated GFR (Non- 60.0 BUN/Creatinine Ratio 26.1 10-20 Random Glucose 117 70-99 mg/dl Calcium Level 9.0 8.5-10.1 mg/dl Total Creatine Kinase 91 26-192 U/L Creatine Kinase MB 1.8 0.5-3.6 ng/ml Creatine Kinase MB Ratio 2.0 0-3.0 Troponin I 0.045 0-0.045 ng/ml Bedside Hemoglobin 12.6 12.0-16.0 g/dl Bedside Hematocrit 37 37-47 % Bedside Sodium 142 135-144 mEq/L Bedside Potassium 3.7 3.3-5.0 mEq/L Bedside Chloride 102 101-112 mEq/L Bedside Total CO2 27 24-31 mEq/l Bedside Blood Urea Nitrogen 25 7-18 mg/dl Bedside Creatinine 1.0 0.6-1.3 mg/dl Bedside Glucose (other) 119 70-99 mg/dl Bedside Ionized Calcium (Liliam) 1.17 1.12-1.32 mmol/l Bedside Troponin I < 0.030 0-0.045 ng/ml Kaolin Activated Coagulation Time 186 94-140 SECONDS Test 12/14/17 03:31 Range/Units Microbiology Results 12/14/17 MRSA DNA Surveillance Screen, Received Pending CXR normal Impression Assessment and Plan 67 year old female with no significant past medical history that presented to the ED with chest pain and was found to have an occlusion of her RCA. Acute Myocardial Infarction - RCA stent placed - Dual antiplatelet therapy for 1 year - trend troponins - check echo in the AM - start ANDREW inhibitor, BB and high dose statin - cardiac rehab consult - admit to ICU for further monitoring - check lipid panel and HbA1c Full Code Resident Physician Supervision Note: I was present with Dr. Moyer during the history and exam. I discussed the case with the resident and agree with the findings and plan as documented in the note. Any exceptions or clarifications are listed here: 67 y/o F with no known previous medical history presented to the ER with CP. An initial EKG revealed inf ST depressions and the pt became hypotensive and marginally bradycardic in the ER. She proceeded directly to the corn lab technician and an RCA stent was placed. She is stable and CP_free following. OE AAO x 3 S1,2 R CTAB NT, ND No CCE P: Placed on Heparin, ASA, B cheyenne and a statin Can f/u with cardio AM for dispo Documented By: Fazal Joseph Resuscitation Status VTE Prophylaxis Will order VTE Prophylaxis: Yes
--- NOTE | 2017-12-14 07:22 | DIAGNOSTIC IMAGING REPORT ---
SINGLE VIEW CHEST CLINICAL HISTORY: Atypical chest pain. FINDINGS: An AP, portable, upright chest radiograph is compared to study dated 08/25/2012. The examination is degraded by portable technique and patient rotation. The heart is top normal for projection. The pulmonary vasculature is noncongested. Chronic interstitial thickening is similar to previous. There is mild bibasilar atelectasis. No airspace consolidation or large pleural effusion is identified. No pneumothorax is seen. The skeletal structures are osteopenic. The bony thorax is grossly intact. Degenerative change is seen in the shoulders. IMPRESSION: No acute cardiopulmonary abnormality. Electronically signed by: Zenon Montgomery M.D. 12/14/2017 7:21 AM Dictated Date/Time: 12/14/2017 7:20 AM
[2017-12-14] MEDS: ASPIRIN 81 MG ECTAB PO SCH (08:51)
[2017-12-14] MEDS: ATORVASTATIN 40 MG TAB PO SCH (08:51)
[2017-12-14] MEDS: LISINOPRIL 5 MG TAB PO SCH (09:00)
[2017-12-14] MEDS: METOPROLOL TARTRATE 25 MG TAB PO SCH ×2 (09:00→21:00)
[2017-12-14 09:20] LABS: HEMOGLOBIN A1C 5.7 % (4.5-5.6)
--- NOTE | 2017-12-14 13:50 | Cardiology Follow-Up ---
Subjective Date of Service: Dec 14, 2017. Pt evaluation today including: conversation w/ patient, physical exam, chart review, lab review, conversation w/ outreach consultant (Dr. Owusu of critical care team ), review of inpatient medication list History of Present Illness She is doing well following PCI. She denies angina, shortness of breath, syncope, near-syncope, palpitations, edema, or bleeding. She did have some transient lightheadedness while laying in bed earlier today and she noted that her heart rate was in the 40s at that time. Metoprolol and lisinopril were held this morning by nursing staff due to bradycardia and hypotension. She tolerated ambulation in the hallway. Medications Current Inpatient Medications Medications (Trade) Dose Ordered Sig/Frida Route Start Time Stop Time Status Last Admin Dose Admin Nitroglycerin (Nitrostat Tab) 0.4 mg UD PRN SL 12/14/17 03:45 01/13/18 03:44 Ondansetron HCl (Zofran Inj) 4 mg Q6H PRN IV 12/14/17 03:45 01/13/18 03:44 Aspirin (Ecotrin Tab) 81 mg QAM PO 12/14/17 09:00 01/13/18 08:59 12/14/17 08:51 81 MG Atorvastatin Calcium (Lipitor Tab) 80 mg QAM PO 12/14/17 09:00 01/13/18 08:59 12/14/17 08:51 80 MG Metoprolol Tartrate (Lopressor Tab) 12.5 mg Q12 PO 12/14/17 09:00 01/13/18 08:59 Lisinopril (Zestril Tab) 5 mg QAM PO 12/14/17 09:00 01/13/18 08:59 Acetaminophen (Tylenol Tab) 650 mg Q4H PRN PO 12/14/17 03:45 01/13/18 03:44 Ticagrelor (Brilinta Tab) 90 mg BID PO 12/14/17 18:00 01/13/18 17:59 Objective Vital Signs Past 12 Hours Date Time Temp Pulse Resp B/P (MAP) Pulse Ox O2 Delivery O2 Flow Rate FiO2 12/14/17 11:00 56 16 99/52 (68) 99 Room Air 12/14/17 10:00 54 18 112/54 (73) 95 Room Air 8/6/18 09:00 57 22 108/62 (77) 100 Room Air 818 08:00 99 Room Air 18 08:00 36.8 55 19 110/59 (76) 100 Room Air 12/14/17 07:01 56 27 102/49 (66) 95 18 06:55 64 23 98 8/18 06:40 61 23 99 18 06:31 65 26 107/44 (65) 100 12/14/17 06:25 59 29 97 18 06:10 59 18 98 818 06:01 61 20 97/51 (66) 12/14/17 05:55 61 19 97 12/14/17 05:40 65 21 112/53 (72) 12/14/17 05:40 65 21 112/53 (72) 12/14/17 05:35 69 20 98 Room Air 12/14/17 05:20 61 18 99 Room Air 12/14/17 05:05 64 18 99 Room Air 12/14/17 05:01 68 19 104/55 (71) 12/14/17 04:50 36.7 74 18 98 Room Air 12/14/17 04:35 70 20 100 Room Air 18 04:31 71 19 105/50 (68) 99 Room Air 12/14/17 04:21 76 18 90/47 (61) 99 Room Air 18 04:20 75 14 98 Room Air 18 04:11 79 20 100/48 (65) 99 Room Air 12/14/17 04:10 78 20 98 Room Air 12/14/17 04:01 78 16 105/48 (67) 98 Room Air 18 04:00 99 Room Air 18 04:00 79 22 99 Room Air 18 03:51 80 21 101/51 (68) 99 Room Air 18 03:50 78 20 98 Room Air 18 03:42 109/48 (68) 18 03:25 36.7 77 18 101/51 99 Room Air 8618 03:25 80 18 112/53 (72) 100 Room Air 18 03:15 84 18 113/64 (80) 100 Room Air 818 02:40 45 14 88/49 95 12/14/17 02:36 48 13 88/49 93 Nasal Cannula 2.0 12/14/17 02:35 49 12/14/17 02:32 70 25 118/71 93 Nasal Cannula 2.0 12/14/17 02:26 72 21 127/68 99 Nasal Cannula 2.0 12/14/17 02:26 74 18 127/68 98 Nasal Cannula 2.0 12/14/17 02:21 80 26 125/61 98 Nasal Cannula 2.0 12/14/17 02:16 74 16 138/70 99 Nasal Cannula 2.0 12/14/17 02:13 77 16 127/79 97 Nasal Cannula 2.0 12/14/17 02:06 98 Nasal Cannula 2.0 12/14/17 02:04 74 12/14/17 01:52 36.5 68 18 133/64 97 Room Air Last Recorded Weight-Kilograms: 68.700 Intake & Output 8-Hour Column 12/14/17 12/15/17 12/15/17 16:00 00:00 08:00 Intake Total 640 ml Output Total 150 ml Balance 490 ml 24-Hour Column 12/15/17 08:00 Intake Total 640 ml Output Total 150 ml Balance 490 ml Physical Exam Gen.: No acute distress. Alert and oriented. HEENT: Anicteric sclera. Neck: No JVD. Cardiac: No ventricular heave. Regular. Normal S1-S2. No murmurs, rubs, or gallops. Pulmonary: Clear to auscultation bilaterally without wheezes, rales, or rhonchi. Abdomen: Soft, nontender, nondistended, with normoactive bowel sounds. No bruits noted. Extremities: 2+ radial pulses bilaterally. Right radial cath site is clean, dry , and intact without erythema or discharge. No edema or cyanosis. Psychiatric: Affect appears appropriate. Data Laboratory Results: Last Resulted 12/14/17 02:05 Red Blood Count 4.33, Mean Corpuscular Volume 88.7, Mean Corpuscular Hemoglobin 28.9, Mean Corpuscular Hemoglobin Concent 32.6, Mean Platelet Volume 9.6, Neutrophils (%) (Auto) 71.9, Lymphocytes (%) (Auto) 20.5, Monocytes (%) (Auto) 5.3, Eosinophils (%) (Auto) 1.6, Basophils (%) (Auto) 0.5, Neutrophils # (Auto) 6.38, Lymphocytes # (Auto) 1.82, Monocytes # (Auto) 0.47, Eosinophils # (Auto) 0.14, Basophils # (Auto) 0.04 Last Resulted 12/14/17 02:05 Past 24 Hours Test 12/14/17 02:05 12/14/17 06:03 Range/Units Creatine Kinase MB 1.8 0.5-3.6 ng/ml Creatine Kinase MB Ratio 2.0 0-3.0 Prothromb Time International Ratio 1.0 0.9-1.1 Prothrombin Time 10.5 9.0-12.0 SECONDS Total Creatine Kinase 91 26-192 U/L Troponin I 0.045 2.860 *H 0-0.045 ng/ml Telemetry personally reviewed: No arrhythmia. ECG personally reviewed: ECG 12/14/2017 at 8:40 a.m.: Sinus bradycardia at [address] abnormality. Inferior infarct. Cardiac catheterization 12/14/[address] Brunson: Mid LAD 50%. Lad gives rise to left to right collaterals. Large OM1 proximal 30-40%. Mid RCA 20-30%. Subtotal occlusion of distal RCA with thrombus. EF 55%. Inferior hypokinesis. LVEDP 11. Distal RCA underwent PCI with 3.5 x 18 [place] TIN and post dilated with 3.75 mm noncompliant balloon. Assessment and Plan ASSESSMENT/PLAN: 1. Acute RCA STEMI: No further angina following PCI of distal RCA. Continue aspirin 81 mg daily. Aspirin should be continued indefinitely. Continue Brilinta for at least 1 year. Continue high-intensity statin therapy. Beta- cheyenne and ANDREW-inhibitor were held due to bradycardia and hypotension, with symptoms. Echocardiogram interpretation is pending. 2. Hypotension: If blood pressure improves, would then consider restarting metoprolol or ANDREW-inhibitor. 3. Bradycardia: Heart rate was in the low 50s during most of our conversation. If her heart rate improves, could consider low-dose beta-cheyenne but continue to hold for now. 4. Disposition: Cardiology will continue to follow. Continue telemetry for at least 48 hours total. Cardiac rehab on discharge. Follow-up with Dr. Brunson on discharge. Plan of care was discussed with the critical care team.
--- NOTE | 2017-12-14 14:39 | Critical Care Progress Note ---
Critical Care Progress Note Date of Service Dec 14, 2017. Attending Dr. Owusu Subjective The patient denies any chest pain, she is status post PCI with stenting to the RCA. She has been comfortable and denies any nausea or vomiting, no chest pain , no near syncopal episode. Her labs were noted and reviewed personally. Objective Physical exam revealed stable vital signs except for slight bradycardia in the range of 50, normal sinus rhythm, O2 sat is 98%, S1-S2, bradycardia, the lung chong, abdomen is benign, no edema. Assessment & Plan 1. Acute [place] status post TIN to RCA. 2. Bradycardia, patient according to her at baseline her heart rate in the range of 50-60. Plan: 1. Appreciate cardiology input. 2. Continue current medications. 3. Post-cath management per cardiology. 4. Ambulate the patient. 5. Disposition plan to telemetry was agreed by cardiology. 6. Discussed with the staff on rounds and details. Data Medications: Current Inpatient Medications Medications (Trade) Dose Ordered Sig/Frida Route Start Time Stop Time Status Last Admin Dose Admin Nitroglycerin (Nitrostat Tab) 0.4 mg UD PRN SL 12/14/17 03:45 01/13/18 03:44 Ondansetron HCl (Zofran Inj) 4 mg Q6H PRN IV 12/14/17 03:45 01/13/18 03:44 Aspirin (Ecotrin Tab) 81 mg QAM PO 12/14/17 09:00 01/13/18 08:59 12/14/17 08:51 81 MG Atorvastatin Calcium (Lipitor Tab) 80 mg QAM PO 12/14/17 09:00 01/13/18 08:59 12/14/17 08:51 80 MG Metoprolol Tartrate (Lopressor Tab) 12.5 mg Q12 PO 12/14/17 09:00 01/13/18 08:59 Lisinopril (Zestril Tab) 5 mg QAM PO 12/14/17 09:00 01/13/18 08:59 Acetaminophen (Tylenol Tab) 650 mg Q4H PRN PO 12/14/17 03:45 01/13/18 03:44 Ticagrelor (Brilinta Tab) 90 mg BID PO 12/14/17 18:00 01/13/18 17:59 I & O: 24-Hour Column 12/15/17 08:00 Intake Total 690 ml Output Total 150 ml Balance 540 ml Vital Signs: Date Time Temp Pulse Resp B/P (MAP) Pulse Ox O2 Delivery O2 Flow Rate FiO2 12/14/17 14:00 48 16 103/52 (69) 96 Room Air 12/14/17 13:00 44 20 120/50 (73) 99 Room Air 12/14/17 12:00 36.9 52 17 113/55 (74) 100 Room Air 12/14/17 11:00 56 16 99/52 (68) 99 Room Air 12/14/17 10:00 54 18 112/54 (73) 95 Room Air 12/14/17 09:00 57 22 108/62 (77) 100 Room Air 12/14/17 08:00 99 Room Air 12/14/17 08:00 36.8 55 19 110/59 (76) 100 Room Air 12/14/17 07:01 56 27 102/49 (66) 95 12/14/17 06:55 64 23 98 12/14/17 06:40 61 23 99 12/14/17 06:31 65 26 107/44 (65) 100 12/14/17 06:25 59 29 97 12/14/17 06:10 59 18 98 12/14/17 06:01 61 20 97/51 (66) 12/14/17 05:55 61 19 97 12/14/17 05:40 65 21 112/53 (72) 12/14/17 05:40 65 21 112/53 (72) 12/14/17 05:35 69 20 98 Room Air 12/14/17 05:20 61 18 99 Room Air 12/14/17 05:05 64 18 99 Room Air 12/14/17 05:01 68 19 104/55 (71) 12/14/17 04:50 36.7 74 18 98 Room Air 12/14/17 04:35 70 20 100 Room Air 12/14/17 04:31 71 19 105/50 (68) 99 Room Air 12/14/17 04:21 76 18 90/47 (61) 99 Room Air 12/14/17 04:20 75 14 98 Room Air 12/14/17 04:11 79 20 100/48 (65) 99 Room Air 12/14/17 04:10 78 20 98 Room Air 12/14/17 04:01 78 16 105/48 (67) 98 Room Air 12/14/17 04:00 99 Room Air 12/14/17 04:00 79 22 99 Room Air 12/14/17 03:51 80 21 101/51 (68) 99 Room Air 12/14/17 03:50 78 20 98 Room Air 12/14/17 03:42 109/48 (68) 12/14/17 03:25 36.7 77 18 101/51 99 Room Air 12/14/17 03:25 80 18 112/53 (72) 100 Room Air 12/14/17 03:15 84 18 113/64 (80) 100 Room Air 12/14/17 02:40 45 14 88/49 95 12/14/17 02:36 48 13 88/49 93 Nasal Cannula 2.0 12/14/17 02:35 49 12/14/17 02:32 70 25 118/71 93 Nasal Cannula 2.0 12/14/17 02:26 72 21 127/68 99 Nasal Cannula 2.0 12/14/17 02:26 74 18 127/68 98 Nasal Cannula 2.0 12/14/17 02:21 80 26 125/61 98 Nasal Cannula 2.0 12/14/17 02:16 74 16 138/70 99 Nasal Cannula 2.0 12/14/17 02:13 77 16 127/79 97 Nasal Cannula 2.0 12/14/17 02:06 98 Nasal Cannula 2.0 12/14/17 02:04 74 12/14/17 01:52 36.5 68 18 133/64 97 Room Air Laboratory Results: Last 24 Hours Test 12/14/17 02:05 12/14/17 02:09 12/14/17 02:16 12/14/17 03:04 White Blood Count 8.87 K/uL Red Blood Count 4.33 M/uL Hemoglobin 12.5 g/dL Hematocrit 38.4 % Mean Corpuscular Volume 88.7 fL Mean Corpuscular Hemoglobin 28.9 pg Mean Corpuscular Hemoglobin Concent 32.6 g/dl Platelet Count 327 K/uL Mean Platelet Volume 9.6 fL Neutrophils (%) (Auto) 71.9 % Lymphocytes (%) (Auto) 20.5 % Monocytes (%) (Auto) 5.3 % Eosinophils (%) (Auto) 1.6 % Basophils (%) (Auto) 0.5 % Neutrophils # (Auto) 6.38 K/uL Lymphocytes # (Auto) 1.82 K/uL Monocytes # (Auto) 0.47 K/uL Eosinophils # (Auto) 0.14 K/uL Basophils # (Auto) 0.04 K/uL RDW Standard Deviation 44.1 fL RDW Coefficient of Variation 13.4 % Immature Granulocyte % (Auto) 0.2 % Immature Granulocyte # (Auto) 0.02 K/uL Prothrombin Time 10.5 SECONDS Prothromb Time International Ratio 1.0 Activated Partial Thromboplast Time 25.0 SECONDS Partial Thromboplastin Ratio 1.0 Sodium Level 140 mmol/L Potassium Level 3.6 mmol/L Chloride Level 105 mmol/L Carbon Dioxide Level 28 mmol/L Anion Gap 7.0 mmol/L 18.0 mmol/L Blood Urea Nitrogen 25 mg/dl Creatinine 0.97 mg/dl Est Creatinine Clear Calc Drug Dose 54.0 ml/min Estimated GFR () 69.6 Estimated GFR (Non- 60.0 BUN/Creatinine Ratio 26.1 Random Glucose 117 mg/dl Calcium Level 9.0 mg/dl Total Creatine Kinase 91 U/L Creatine Kinase MB 1.8 ng/ml Creatine Kinase MB Ratio 2.0 Troponin I 0.045 ng/ml LDL Cholesterol Direct 134 mg/dl Bedside Hemoglobin 12.6 g/dl Bedside Hematocrit 37 % Bedside Sodium 142 mEq/L Bedside Potassium 3.7 mEq/L Bedside Chloride 102 mEq/L Bedside Total CO2 27 mEq/l Bedside Blood Urea Nitrogen 25 mg/dl Bedside Creatinine 1.0 mg/dl Bedside Glucose (other) 119 mg/dl Bedside Ionized Calcium (Liliam) 1.17 mmol/l Bedside Troponin I < 0.030 ng/ml Kaolin Activated Coagulation Time 186 SECONDS Test 12/14/17 06:03 12/14/17 06:09 12/14/17 11:28 Estimated Average Glucose 117 mg/dl Hemoglobin A1c 5.7 % Troponin I 2.860 ng/ml Triglycerides Level 97 mg/dl Cholesterol Level 169 mg/dl HDL Cholesterol 50 mg/dl LDL Cholesterol, Calculated 100 mg/dl VLDL Cholesterol, Calculated 19 mg/dl Cholesterol/HDL Ratio 3.4 Bedside Glucose 118 mg/dl 105 mg/dl
[2017-12-14] MEDS: TICAGRELOR 90 MG TAB PO SCH (18:23)
--- NOTE | 2017-12-14 19:36 | ECHOCARDIOGRAM REPORT ---
*NOTICE TO RECEIVING [employer]Y This information is strictly Confidential and protected under [place] law. [place] law prohibits you from making any further disclosure of this information unless further disclosure is expressly permitted by the written consent of the person to whom it pertains or is authorized by law. A general authorization for the release of medical or other information is not sufficient for this purpose. Hospital accepts no responsibility if the information is made available to any other person, INCLUDING THE PATIENT. Interpretation Summary * Name: TROY GONZALEZ Study Date: 12/14/2017 06:26 AM BP: 112/53 mmHg * Patient Location: E107 HR: 65 * : 1950 (M/d/yyyy) Gender: Female Height: 65 in * Age: 67 yrs Ethnicity: [place] Weight: 151 lb * Ordering Physician: Ravin Brunson * Referring Physician: Self, Referred * Performed By: Cathie Sky RCS * * Reason For Study: AMI * BSA: 1.8 m2 * -- Conclusions -- * 1. Normal left ventricular size and systolic function. EF 60-65%. Small area of akinesis involving the inferior base, otherwise normal wall motion. No left ventricular hypertrophy. Type 1 diastolic dysfunction. * 2. No significant valvular abnormalities visualized. * 3. Normal estimated right ventricular systolic pressure. * 4. No prior study available for comparison. Procedure Details * A complete two-dimensional transthoracic echocardiogram was performed (2D, M-mode, Doppler and color flow Doppler). Left Ventricle * Normal left ventricular size and systolic function. EF 60-65%. Small area of akinesis involving the inferior base, otherwise normal wall motion. No left ventricular hypertrophy. Type 1 diastolic dysfunction. Right Ventricle * The right ventricle is normal in size and function. * The right ventricular systolic function is normal as assessed by tricuspid annular plane systolic excursion (TAPSE) (normal >1.5 cm). Atria * The left atrial size is normal. * Right atrial size is normal. * There is no evidence of atrial septal defect, but resolution does not allow assessment for a patent foramen ovale. Mitral Valve * The mitral valve is grossly normal. * There is no mitral valve stenosis. * There is trace mitral regurgitation. Tricuspid Valve * The tricuspid valve is not well visualized, but is grossly normal. * There is no tricuspid stenosis. * There is mild tricuspid regurgitation. Aortic Valve * The aortic valve is trileaflet. * No hemodynamically significant valvular aortic stenosis. * No aortic regurgitation is present. Pulmonic Valve * The pulmonary valve is inadequately visualized, but the Doppler data is adequate for interpretation. * There is no pulmonic valvular stenosis. * Trace pulmonic valvular regurgitation. Great Vessels * The aortic root is normal size. * Ascending aorta of normal dimension * Normal pulmonary venous flow pattern. Pericardium/Pleural * Trace pericardial effusion. Great Vessels * Normal inferior vena cava size and collapsability with sniff indicates a normal right atrial pressure of 3 mmHg MMode 2D Measurements and Calculations IVSd 1.0 cm IVSs 1.5 cm LVIDd 4.7 cm LVIDs 2.4 cm LVPWd 0.89 cm LVPWs 1.8 cm IVS/LVPW 1.1 FS 48.4 % EDV(Teich) 101.8 ml ESV(Teich) 20.5 ml EF(Teich) 79.8 % EDV(cubed) 103.1 ml ESV(cubed) 14.1 ml EF(cubed) 86.3 % % IVS thick 42.1 % % LVPW thick 99.7 % LV mass(C)d 155.2 grams LV mass(C)dI 88.4 grams/m\S\2 LV mass(C)s 139.9 grams LV mass(C)sI 79.7 grams/m\S\2 SV(Teich) 81.2 ml SI(Teich) 46.3 ml/m\S\2 SV(cubed) 88.9 ml SI(cubed) 50.7 ml/m\S\2 Ao root diam 3.5 cm Ao root area 9.7 cm\S\2 ACS 1.5 cm LA dimension 3.9 cm asc Aorta Diam 3.1 cm LA/Ao 1.1 LVAd ap4 32.7 cm\S\2 LVLd ap4 8.2 cm EDV(MOD-sp4) 97.6 ml EDV(sp4-el) 110.7 ml LVAs ap4 15.9 cm\S\2 LVLs ap4 6.5 cm ESV(MOD-sp4) 35.5 ml ESV(sp4-el) 33.0 ml EF(MOD-sp4) 63.6 % EF(sp4-el) 70.2 % EDV(MOD-sp2) 90.0 ml ESV(MOD-sp2) 37.0 ml EF(MOD-sp2) 58.9 % SV(MOD-sp4) 62.1 ml SI(MOD-sp4) 35.4 ml/m\S\2 SV(MOD-sp2) 53.0 ml SI(MOD-sp2) 30.2 ml/m\S\2 SV(sp4-el) 77.8 ml SI(sp4-el) 44.3 ml/m\S\2 Doppler Measurements and Calculations MV E max jose carlos 70.6 cm/sec MV A max jose carlos 106.8 cm/sec MV E/A 0.66 MV P1/2t max jose carlos 102.2 cm/sec MV P1/2t 90.6 msec MVA(P1/2t) 2.4 cm\S\2 MV dec slope 330.4 cm/sec\S\2 MV dec time 0.30 sec Ao V2 max 145.7 cm/sec Ao max PG 8.5 mmHg Ao max PG (full) 3.2 mmHg LV V1 max PG 5.3 mmHg LV V1 max 115.0 cm/sec PA V2 max 101.1 cm/sec PA max PG 4.1 mmHg TR max jose carlos 273.2 cm/sec RVSP(TR) 32.9 mmHg RAP systole 3.0 mmHg
--- NOTE | 2017-12-14 21:01 | Family Medicine Progress Note ---
Progress Note Date of Service Dec 14, 2017. Subjective Pt evaluation today including: conversation w/ patient, physical exam, chart review, lab review Patient resting comfortably in bed today, feels much better apart from a lack of sleep last night. She has been bradycardic all morning but denies any symptoms at this time. She feels in her usual state of health. Patient asked and was educated about her medications moving forward. Constitutional: No fever, No chills, No sweats, No weight loss, No weakness , No fatigue Respiratory: No cough, No sputum, No wheezing, No shortness of breath Cardiovascular: No chest pain, No orthopnea, No palpitations Abdomen: No pain, No nausea, No vomiting, No diarrhea, No constipation Neurologic: No weakness, No numbness/tingling, No balance problems Medications Current Inpatient Medications Medications (Trade) Dose Ordered Sig/Frida Route Start Time Stop Time Status Last Admin Dose Admin Nitroglycerin (Nitrostat Tab) 0.4 mg UD PRN SL 12/14/17 03:45 01/13/18 03:44 Ondansetron HCl (Zofran Inj) 4 mg Q6H PRN IV 12/14/17 03:45 01/13/18 03:44 Aspirin (Ecotrin Tab) 81 mg QAM PO 12/14/17 09:00 01/13/18 08:59 12/14/17 08:51 81 MG Atorvastatin Calcium (Lipitor Tab) 80 mg QAM PO 12/14/17 09:00 01/13/18 08:59 12/14/17 08:51 80 MG Metoprolol Tartrate (Lopressor Tab) 12.5 mg Q12 PO 12/14/17 09:00 01/13/18 08:59 Lisinopril (Zestril Tab) 5 mg QAM PO 12/14/17 09:00 01/13/18 08:59 Acetaminophen (Tylenol Tab) 650 mg Q4H PRN PO 12/14/17 03:45 01/13/18 03:44 Ticagrelor (Brilinta Tab) 90 mg BID PO 12/14/17 18:00 01/13/18 17:59 12/14/17 18:23 90 MG Objective Physical Exam General Appearance: WD/WN, no apparent distress Neck: no JVD Respiratory/Chest: chest non-tender, lungs clear, normal breath sounds, no respiratory distress, no accessory muscle use Cardiovascular: regular rate, rhythm, no edema, no gallop, no JVD, no murmur Abdomen: normal bowel sounds, non tender, soft, no organomegaly Neurologic/Psychiatric: no motor/sensory deficits, alert, normal mood/affect, oriented x 3 Laboratory Results 12/14/17 02:05 Red Blood Count 4.33, Mean Corpuscular Volume 88.7, Mean Corpuscular Hemoglobin 28.9, Mean Corpuscular Hemoglobin Concent 32.6, Mean Platelet Volume 9.6, Neutrophils (%) (Auto) 71.9, Lymphocytes (%) (Auto) 20.5, Monocytes (%) (Auto) 5.3, Eosinophils (%) (Auto) 1.6, Basophils (%) (Auto) 0.5, Neutrophils # (Auto) 6.38, Lymphocytes # (Auto) 1.82, Monocytes # (Auto) 0.47, Eosinophils # (Auto) 0.14, Basophils # (Auto) 0.04 12/14/17 02:05 Test 12/14/17 02:05 12/14/17 02:09 12/14/17 02:16 12/14/17 03:04 White Blood Count 8.87 K/uL (4.8-10.8) Red Blood Count 4.33 M/uL (4.2-5.4) Hemoglobin 12.5 g/dL (12.0-16.0) Hematocrit 38.4 % (37-47) Mean Corpuscular Volume 88.7 fL (80-100) Mean Corpuscular Hemoglobin 28.9 pg (25-34) Mean Corpuscular Hemoglobin Concent 32.6 g/dl (32-36) Platelet Count 327 K/uL (130-400) Mean Platelet Volume 9.6 fL (7.4-10.4) Neutrophils (%) (Auto) 71.9 % Lymphocytes (%) (Auto) 20.5 % Monocytes (%) (Auto) 5.3 % Eosinophils (%) (Auto) 1.6 % Basophils (%) (Auto) 0.5 % Neutrophils # (Auto) 6.38 K/uL (1.4-6.5) Lymphocytes # (Auto) 1.82 K/uL (1.2-3.4) Monocytes # (Auto) 0.47 K/uL (0.11-0.59) Eosinophils # (Auto) 0.14 K/uL (0-0.5) Basophils # (Auto) 0.04 K/uL (0-0.2) RDW Standard Deviation 44.1 fL (36.4-46.3) RDW Coefficient of Variation 13.4 % (11.5-14.5) Immature Granulocyte % (Auto) 0.2 % Immature Granulocyte # (Auto) 0.02 K/uL (0.00-0.02) Prothrombin Time 10.5 SECONDS (9.0-12.0) Prothromb Time International Ratio 1.0 (0.9-1.1) Activated Partial Thromboplast Time 25.0 SECONDS (21.0-31.0) Partial Thromboplastin Ratio 1.0 Est Creatinine Clear Calc Drug Dose 54.0 ml/min Estimated GFR () 69.6 Estimated GFR (Non- 60.0 BUN/Creatinine Ratio 26.1 (10-20) Calcium Level 9.0 mg/dl (8.5-10.1) Total Creatine Kinase 91 U/L (26-192) Creatine Kinase MB 1.8 ng/ml (0.5-3.6) Creatine Kinase MB Ratio 2.0 (0-3.0) LDL Cholesterol Direct 134 mg/dl Bedside Hemoglobin 12.6 g/dl (12.0-16.0) Bedside Hematocrit 37 % (37-47) Bedside Sodium 142 mEq/L (135-144) Bedside Potassium 3.7 mEq/L (3.3-5.0) Bedside Chloride 102 mEq/L (101-112) Bedside Total CO2 27 mEq/l (24-31) Anion Gap 18.0 mmol/L (16-25) Bedside Blood Urea Nitrogen 25 mg/dl (7-18) Bedside Creatinine 1.0 mg/dl (0.6-1.3) Bedside Glucose (other) 119 mg/dl (70-99) Bedside Ionized Calcium (Liliam) 1.17 mmol/l (1.12-1.32) Bedside Troponin I < 0.030 ng/ml (0-0.045) Kaolin Activated Coagulation Time 186 SECONDS (94-140) Test 12/14/17 06:03 12/14/17 17:54 Estimated Average Glucose 117 mg/dl Hemoglobin A1c 5.7 % (4.5-5.6) Troponin I 2.860 ng/ml (0-0.045) Triglycerides Level 97 mg/dl (0-150) Cholesterol Level 169 mg/dl (0-200) HDL Cholesterol 50 mg/dl LDL Cholesterol, Calculated 100 mg/dl VLDL Cholesterol, Calculated 19 mg/dl Cholesterol/HDL Ratio 3.4 Bedside Glucose 106 mg/dl (70-90) Date/Time Source Procedure Growth Status 12/14/17 03:40 Nasal MRSA DNA Surveillance Screen - Final Specimen Negative for MRSA by DNA Probe Complete Assessment and Plan RCA STEMI -Stents placed -No further angina or SOB -Echocardiogram ordered -Started on statin, dual antiplatelet therapy with aspirin and brilenta, metoprolol, and lisinopril. -Metoprolol held for bradycardia -lisinopril held for hypotension. Bradycardia -Holding Metoprolol will continue to monitor -Telemetry Hypotension -BP's trending upwards -Continuing to monitor on tele DVT PPx -mechanical Resident Physician Supervision Note: I interviewed and examined the patient. Discussed with Dr. Almanzar and agree with findings and plan as documented in the note. Any exceptions or clarifications are listed here: None Documented By: Sandro Ramos feeling better post stenting vitals noted nad breathing unlabored no pallor or icterus RCA HI - post stenting, med management, supportive care, doing well Resident Tracking Resident Involvement: Resident Care Provided Care Provided: Adult Hospital Medicine
[2017-12-15] VITALS (12 sets, daily range): BP systolic 112–128; BP diastolic 57–71; PULSE 47–66; TEMP 36.8–37.2; O2SAT 93–97
[2017-12-15 04:35] LABS: BASO % 0.3 %; BASO ABS # 0.02 K/uL (0-0.2); EOS % 1.7 %; HEMATOCRIT 32.1 % (37-47); HEMOGLOBIN 10.6 g/dL (12.0-16.0); IG# 0.02 K/uL (0.00-0.02); LYMPH % 20.3 %; LYMPH ABS # 1.21 K/uL (1.2-3.4); MEAN CELL VOLUME 88.7 fL (80-100); MEAN CORPUSCULAR HEMOGLOBIN 29.3 pg (25-34); MEAN PLATELET VOLUME 9.5 fL (7.4-10.4); MONO % 8.2 %; MONO ABS # 0.49 K/uL (0.11-0.59); NEUT % 69.2 %; NEUT ABS # 4.12 K/uL (1.4-6.5); PLATELET COUNT 252 K/uL (130-400); RED CELL DISTRIBUTION WIDTH CV 13.7 % (11.5-14.5); RED CELL DISTRIBUTION WIDTH SD 44.5 fL (36.4-46.3); WHITE BLOOD COUNT 5.96 K/uL (4.8-10.8)
[2017-12-15 05:11] LABS: CALCIUM 8.2 mg/dl (8.5-10.1); CREATININE 0.7 mg/dl (0.60-1.20); POTASSIUM 3.7 mmol/L (3.5-5.1)
[2017-12-15] MEDS: ASPIRIN 81 MG ECTAB PO SCH (09:18)
[2017-12-15] MEDS: ATORVASTATIN 40 MG TAB PO SCH (09:18)
[2017-12-15] MEDS: TICAGRELOR 90 MG TAB PO SCH ×2 (09:18→20:38)
[2017-12-15] MEDS: LISINOPRIL 5 MG TAB PO SCH (09:19)
--- NOTE | 2017-12-15 10:38 | Cardiology Follow-Up ---
Subjective Date of Service: Dec 15, 2017. Pt evaluation today including: conversation w/ patient, physical exam, chart review, lab review, review of studies, review of inpatient medication list History of Present Illness She denies angina, shortness of breath, syncope, near-syncope, edema, palpitations, or bleeding. She continues to ambulate intermittently in the hallway and tolerates it well. She was given lisinopril this morning and has tolerated it thus far. Medications Current Inpatient Medications Medications (Trade) Dose Ordered Sig/Frida Route Start Time Stop Time Status Last Admin Dose Admin Nitroglycerin (Nitrostat Tab) 0.4 mg UD PRN SL 12/14/17 03:45 01/13/18 03:44 Ondansetron HCl (Zofran Inj) 4 mg Q6H PRN IV 12/14/17 03:45 01/13/18 03:44 Aspirin (Ecotrin Tab) 81 mg QAM PO 12/14/17 09:00 01/13/18 08:59 12/15/17 09:18 81 MG Atorvastatin Calcium (Lipitor Tab) 80 mg QAM PO 12/14/17 09:00 01/13/18 08:59 12/15/17 09:18 80 MG Lisinopril (Zestril Tab) 5 mg QAM PO 12/14/17 09:00 01/13/18 08:59 12/15/17 09:19 5 MG Acetaminophen (Tylenol Tab) 650 mg Q4H PRN PO 12/14/17 03:45 01/13/18 03:44 Ticagrelor (Brilinta Tab) 90 mg BID PO 12/14/17 18:00 01/13/18 17:59 12/15/17 09:18 90 MG Objective Vital Signs Past 12 Hours Date Time Temp Pulse Resp B/P (MAP) Pulse Ox O2 Delivery O2 Flow Rate FiO2 12/15/17 08:00 Room Air 12/15/17 04:01 36.9 47 26 128/71 (90) 93 Room Air 12/15/17 03:01 51 15 115/65 (82) 96 Room Air 12/15/17 02:01 50 27 124/67 (86) 93 Room Air 12/15/17 01:01 50 27 113/57 (75) 93 Room Air 12/15/17 00:00 36.8 50 27 117/63 (81) 93 Room Air 12/14/17 23:15 52 14 114/61 (78) Room Air Last Recorded Weight-Kilograms: 68.000 Intake & Output 8-Hour Column 12/15/17 12/16/17 12/16/17 16:00 00:00 08:00 Intake Total 100 ml Output Total 600 ml Balance -500 ml 24-Hour Column 12/16/17 08:00 Intake Total 100 ml Output Total 600 ml Balance -500 ml Physical Exam Gen.: No acute distress. Alert and oriented. HEENT: Anicteric sclera. Neck: No JVD. Cardiac: No ventricular heave. Regular. No ectopy. Normal S1-S2. No murmurs, rubs, or gallops. Pulmonary: Clear to auscultation bilaterally without wheezes, rales, or rhonchi. Abdomen: Soft, nontender, nondistended, with normoactive bowel sounds. No bruits noted. Extremities: 2+ right radial pulse. Right radial cath site is clean, dry, and intact without erythema or discharge. No edema or cyanosis. Psychiatric: Affect appears appropriate. Data Laboratory Results: Last 24 Hours Test 12/14/17 11:28 12/14/17 17:54 12/14/17 23:17 12/15/17 04:20 Bedside Glucose 105 mg/dl 106 mg/dl 124 mg/dl White Blood Count 5.96 K/uL Red Blood Count 3.62 M/uL Hemoglobin 10.6 g/dL Hematocrit 32.1 % Mean Corpuscular Volume 88.7 fL Mean Corpuscular Hemoglobin 29.3 pg Mean Corpuscular Hemoglobin Concent 33.0 g/dl Platelet Count 252 K/uL Mean Platelet Volume 9.5 fL Neutrophils (%) (Auto) 69.2 % Lymphocytes (%) (Auto) 20.3 % Monocytes (%) (Auto) 8.2 % Eosinophils (%) (Auto) 1.7 % Basophils (%) (Auto) 0.3 % Neutrophils # (Auto) 4.12 K/uL Lymphocytes # (Auto) 1.21 K/uL Monocytes # (Auto) 0.49 K/uL Eosinophils # (Auto) 0.10 K/uL Basophils # (Auto) 0.02 K/uL RDW Standard Deviation 44.5 fL RDW Coefficient of Variation 13.7 % Immature Granulocyte % (Auto) 0.3 % Immature Granulocyte # (Auto) 0.02 K/uL Sodium Level 139 mmol/L Potassium Level 3.7 mmol/L Chloride Level 109 mmol/L Carbon Dioxide Level 23 mmol/L Anion Gap 7.0 mmol/L Blood Urea Nitrogen 13 mg/dl Creatinine 0.70 mg/dl Est Creatinine Clear Calc Drug Dose 74.9 ml/min Estimated GFR () 103.2 Estimated GFR (Non- 89.0 BUN/Creatinine Ratio 18.6 Random Glucose 112 mg/dl Calcium Level 8.2 mg/dl Troponin I 6.420 ng/ml Test 12/15/17 06:12 Bedside Glucose 114 mg/dl Telemetry personally reviewed. One episode of nonsustained ventricular tachycardia. Otherwise sinus rhythm. ECG personally reviewed. ECG 12/15/2017: Sinus rhythm at 63 bpm. Inferior infarct. Echo 12/14/2017: Normal LV size and systolic function. EF 60-65%. Small area of akinesis involving the inferior base. Type 1 diastolic dysfunction. No significant valvular abnormalities. Normal RVSP. Assessment and Plan ASSESSMENT/PLAN: 1. Acute RCA STEMI: No further angina following PCI of distal RCA. Continue aspirin 81 mg daily indefinitely. Continue Brilinta for at least 1 year. Continue high-intensity statin therapy. Continue ANDREW-inhibitor. Will initiate beta-cheyenne if heart rate tolerates. 2. Nonsustained ventricular tachycardia: We discussed the diagnosis. Would like to start low-dose beta-cheyenne if heart rate tolerates. Will reassess. Continue to monitor. 3. Hypotension: Blood pressure has improved. Lisinopril has been initiated and she is tolerating. 4. Bradycardia: Beta-cheyenne discontinued. She has not yet received a dose due to bradycardia. 5. Disposition: Cardiology will continue to follow. Possible DC tomorrow. Cardiac rehabilitation upon discharge. Follow-up with Dr. Brunson upon discharge.
--- NOTE | 2017-12-15 16:55 | Family Medicine Progress Note ---
Progress Note Date of Service Dec 15, 2017. Subjective Patient resting comfortably today, bradycardic and tachypnoeic at times this morning, but does not report any symptomaticity. She feels in her usual state of health and is stir crazy to go home. We discussed her medications and the need for one more night of telemetry before discharge and she was amenable. Additional Comments: Constitutional: No fever, No chills, No sweats, No weight loss, No weakness , No fatigue Respiratory: No cough, No sputum, No wheezing, No shortness of breath Cardiovascular: No chest pain, No orthopnea, No palpitations Abdomen: No pain, No nausea, No vomiting, No diarrhea, No constipation Neurologic: No weakness, No numbness/tingling, No balance problems Medications Current Inpatient Medications Medications (Trade) Dose Ordered Sig/Frida Route Start Time Stop Time Status Last Admin Dose Admin Nitroglycerin (Nitrostat Tab) 0.4 mg UD PRN SL 12/14/17 03:45 01/13/18 03:44 Ondansetron HCl (Zofran Inj) 4 mg Q6H PRN IV 12/14/17 03:45 01/13/18 03:44 Aspirin (Ecotrin Tab) 81 mg QAM PO 12/14/17 09:00 01/13/18 08:59 12/15/17 09:18 81 MG Atorvastatin Calcium (Lipitor Tab) 80 mg QAM PO 12/14/17 09:00 01/13/18 08:59 12/15/17 09:18 80 MG Acetaminophen (Tylenol Tab) 650 mg Q4H PRN PO 12/14/17 03:45 01/13/18 03:44 Ticagrelor (Brilinta Tab) 90 mg BID PO 12/14/17 18:00 01/13/18 17:59 12/15/17 09:18 90 MG Lisinopril (Zestril Tab) 10 mg QAM PO 12/16/17 09:00 01/13/18 08:59 Objective Vital Signs Date Time Temp Pulse Resp B/P (MAP) Pulse Ox O2 Delivery O2 Flow Rate FiO2 12/15/17 15:04 36.8 56 18 112/64 (80) 96 Room Air 12/15/17 12:00 96 Room Air 12/15/17 11:25 36.8 66 18 121/66 (84) 96 12/15/17 10:15 36.9 55 26 93 2.0 12/15/17 08:00 Room Air 12/15/17 04:01 36.9 47 26 128/71 (90) 93 Room Air 12/15/17 03:01 51 15 115/65 (82) 96 Room Air 12/15/17 02:01 50 27 124/67 (86) 93 Room Air 12/15/17 01:01 50 27 113/57 (75) 93 Room Air 12/15/17 00:00 36.8 50 27 117/63 (81) 93 Room Air 12/14/17 23:15 52 14 114/61 (78) Room Air 12/14/17 22:01 46 27 134/57 (82) 95 Room Air 12/14/17 21:02 57 18 115/83 (94) 100 Room Air 12/14/17 20:01 36.8 55 20 125/61 (82) 97 Room Air 12/14/17 20:00 Room Air 12/14/17 19:03 48 18 133/69 (90) 97 Room Air 12/14/17 18:00 54 16 115/66 (82) 97 Room Air Physical Exam Notes: General Appearance: WD/WN, no apparent distress Neck: no JVD Respiratory/Chest: chest non-tender, lungs clear, normal breath sounds, no respiratory distress, no accessory muscle use Cardiovascular: regular rate, rhythm, no edema, no gallop, no JVD, no murmur Abdomen: normal bowel sounds, non tender, soft, no organomegaly Neurologic/Psychiatric: no motor/sensory deficits, alert, normal mood/affect, oriented x 3 Laboratory Results 12/15/17 04:20 Red Blood Count 3.62, Mean Corpuscular Volume 88.7, Mean Corpuscular Hemoglobin 29.3, Mean Corpuscular Hemoglobin Concent 33.0, Mean Platelet Volume 9.5, Neutrophils (%) (Auto) 69.2, Lymphocytes (%) (Auto) 20.3, Monocytes (%) (Auto) 8.2, Eosinophils (%) (Auto) 1.7, Basophils (%) (Auto) 0.3, Neutrophils # (Auto) 4.12, Lymphocytes # (Auto) 1.21, Monocytes # (Auto) 0.49, Eosinophils # (Auto) 0.10, Basophils # (Auto) 0.02 12/15/17 04:20 Test 12/15/17 04:20 12/15/17 06:12 12/15/17 15:13 White Blood Count 5.96 K/uL (4.8-10.8) Red Blood Count 3.62 M/uL (4.2-5.4) Hemoglobin 10.6 g/dL (12.0-16.0) Hematocrit 32.1 % (37-47) Mean Corpuscular Volume 88.7 fL (80-100) Mean Corpuscular Hemoglobin 29.3 pg (25-34) Mean Corpuscular Hemoglobin Concent 33.0 g/dl (32-36) Platelet Count 252 K/uL (130-400) Mean Platelet Volume 9.5 fL (7.4-10.4) Neutrophils (%) (Auto) 69.2 % Lymphocytes (%) (Auto) 20.3 % Monocytes (%) (Auto) 8.2 % Eosinophils (%) (Auto) 1.7 % Basophils (%) (Auto) 0.3 % Neutrophils # (Auto) 4.12 K/uL (1.4-6.5) Lymphocytes # (Auto) 1.21 K/uL (1.2-3.4) Monocytes # (Auto) 0.49 K/uL (0.11-0.59) Eosinophils # (Auto) 0.10 K/uL (0-0.5) Basophils # (Auto) 0.02 K/uL (0-0.2) RDW Standard Deviation 44.5 fL (36.4-46.3) RDW Coefficient of Variation 13.7 % (11.5-14.5) Immature Granulocyte % (Auto) 0.3 % Immature Granulocyte # (Auto) 0.02 K/uL (0.00-0.02) Anion Gap 7.0 mmol/L (3-11) Est Creatinine Clear Calc Drug Dose 74.9 ml/min Estimated GFR () 103.2 Estimated GFR (Non- 89.0 BUN/Creatinine Ratio 18.6 (10-20) Calcium Level 8.2 mg/dl (8.5-10.1) Bedside Glucose 114 mg/dl (70-90) Troponin I 4.400 ng/ml (0-0.045) Assessment and Plan RCA NSTEMI -Stents placed -No further angina or SOB -Echocardiogram showing small area of inferior hypokinesis of left ventricle, but preserved ejection fraction and no valvular dysfunction. -Started on statin, dual antiplatelet therapy with aspirin and brilenta, and lisinopril. -Discussed holding metoprolol on discharge -lisinopril given today, patient did not become hypotensive Bradycardia -Continued 47 this am -Holding Metoprolol will continue to monitor one more night on telemetry. Hypotension -BP's trending upwards -128/71 this am DVT PPx -mechanical Resident Physician Supervision Note: I interviewed and examined the patient. Discussed with Dr. Almanzar and agree with findings and plan as documented in the note. Any exceptions or clarifications are listed here: None Documented By: Sandro Ramos feeling good no chest pain walking ok reviewed bneefits of meds reviewed lifestyle vitlas noted nad breathing unlabored no pallor or icterus NSTEMI w hypotension requiring cath and stenting -med management -hopefully home tomorrow Discharge planning: home Resident Tracking Resident Involvement: Resident Care Provided Care Provided: Adult Hospital Medicine
--- NOTE | 2017-12-15 21:01 | Critical Care Progress Note ---
Critical Care Progress Note Date of Service Dec 15, 2017. Attending Dr. Owusu Subjective The patient is feeling better, asymptomatic today, denies any chest pain, she was ambulatory without any difficulty, no shortness of breath, no new symptoms, the review of system was unremarkable. Objective Physical exam revealed stable vital signs except for slight bradycardia in the range of 50, normal sinus rhythm, O2 sat is 98%, S1-S2, bradycardia, the lung chong, abdomen is benign, no edema. Physical exam on 12/15/2017 showed stable vital signs, slight bradycardia, O2 saturation is 99% on room air, S1-S2 regular rate and rhythm, distant breath sounds bilaterally, abdomen is benign no edema. Labs were consistent with troponin slightly elevated and then declined from 6 to 4.4. Assessment & Plan 1. Acute OK status post TIN to RCA. 2. Bradycardia, patient according to her at baseline her heart rate in the range of 50-60. Plan: 1. Appreciate cardiology input. 2. Continue current medications. 3. Post-cath management per cardiology. 4. Patient is improving from cardiac standpoint. 5. Transfer to telemetry floor. 6. Troponin is trending down. Thank you, will follow as needed. Data Medications: Current Inpatient Medications Medications (Trade) Dose Ordered Sig/Frida Route Start Time Stop Time Status Last Admin Dose Admin Nitroglycerin (Nitrostat Tab) 0.4 mg UD PRN SL 12/14/17 03:45 01/13/18 03:44 Ondansetron HCl (Zofran Inj) 4 mg Q6H PRN IV 12/14/17 03:45 01/13/18 03:44 Aspirin (Ecotrin Tab) 81 mg QAM PO 12/14/17 09:00 01/13/18 08:59 12/15/17 09:18 81 MG Atorvastatin Calcium (Lipitor Tab) 80 mg QAM PO 12/14/17 09:00 01/13/18 08:59 12/15/17 09:18 80 MG Acetaminophen (Tylenol Tab) 650 mg Q4H PRN PO 12/14/17 03:45 01/13/18 03:44 Ticagrelor (Brilinta Tab) 90 mg BID PO 12/14/17 18:00 01/13/18 17:59 12/15/17 20:38 90 MG Lisinopril (Zestril Tab) 10 mg QAM PO 12/16/17 09:00 01/13/18 08:59 I & O: 24-Hour Column 12/16/17 08:00 Intake Total 100 ml Output Total 600 ml Balance -500 ml Vital Signs: Date Time Temp Pulse Resp B/P (MAP) Pulse Ox O2 Delivery O2 Flow Rate FiO2 12/15/17 20:36 37.2 16 117/69 (85) 97 Room Air 12/15/17 15:04 36.8 56 18 112/64 (80) 96 Room Air 12/15/17 12:00 96 Room Air 12/15/17 11:25 36.8 66 18 121/66 (84) 96 12/15/17 10:15 36.9 55 26 93 2.0 12/15/17 08:00 Room Air 12/15/17 04:01 36.9 47 26 128/71 (90) 93 Room Air 12/15/17 03:01 51 15 115/65 (82) 96 Room Air 12/15/17 02:01 50 27 124/67 (86) 93 Room Air 12/15/17 01:01 50 27 113/57 (75) 93 Room Air 12/15/17 00:00 36.8 50 27 117/63 (81) 93 Room Air 12/14/17 23:15 52 14 114/61 (78) Room Air 12/14/17 22:01 46 27 134/57 (82) 95 Room Air 12/14/17 21:02 57 18 115/83 (94) 100 Room Air Laboratory Results: Last 24 Hours Test 12/14/17 23:17 12/15/17 04:20 12/15/17 06:12 12/15/17 15:13 Bedside Glucose 124 mg/dl 114 mg/dl White Blood Count 5.96 K/uL Red Blood Count 3.62 M/uL Hemoglobin 10.6 g/dL Hematocrit 32.1 % Mean Corpuscular Volume 88.7 fL Mean Corpuscular Hemoglobin 29.3 pg Mean Corpuscular Hemoglobin Concent 33.0 g/dl Platelet Count 252 K/uL Mean Platelet Volume 9.5 fL Neutrophils (%) (Auto) 69.2 % Lymphocytes (%) (Auto) 20.3 % Monocytes (%) (Auto) 8.2 % Eosinophils (%) (Auto) 1.7 % Basophils (%) (Auto) 0.3 % Neutrophils # (Auto) 4.12 K/uL Lymphocytes # (Auto) 1.21 K/uL Monocytes # (Auto) 0.49 K/uL Eosinophils # (Auto) 0.10 K/uL Basophils # (Auto) 0.02 K/uL RDW Standard Deviation 44.5 fL RDW Coefficient of Variation 13.7 % Immature Granulocyte % (Auto) 0.3 % Immature Granulocyte # (Auto) 0.02 K/uL Sodium Level 139 mmol/L Potassium Level 3.7 mmol/L Chloride Level 109 mmol/L Carbon Dioxide Level 23 mmol/L Anion Gap 7.0 mmol/L Blood Urea Nitrogen 13 mg/dl Creatinine 0.70 mg/dl Est Creatinine Clear Calc Drug Dose 74.9 ml/min Estimated GFR () 103.2 Estimated GFR (Non- 89.0 BUN/Creatinine Ratio 18.6 Random Glucose 112 mg/dl Calcium Level 8.2 mg/dl Troponin I 6.420 ng/ml 4.400 ng/ml
--- NOTE | 2017-12-15 21:14 | Consultant Recommendations ---
[address] Magistrate Recommendations Date of Service Dec 15, 2017. [address] Magistrate Recommendations ACTIVITY RECOMMENDATIONS: Excess manipulation of the wrist should be avoided for the next 24-48 hours. * No lifting over 2 pounds (approximately a 1/2 gallon of milk) with the utilized arm for 24 hours. * No strenuous activity such as bowling or tennis for 3 days. * Keep the site of the procedure covered with a bandage for 24 hours. *You may shower the day after the procedure. Do not take a tub bath or submerge the puncture site in water for the next 3 days. *Do not operate any motorized equipment for 3 days. SPECIAL CARE INSTRUCTIONS: The site may be slightly bruised and sore following your procedure. Should any of the following occur, contact the Dr. who performed your procedure. 1. Redness/inflammation, swelling, chills, or fever, or colored drainage at procedure site within 3-7 days after your procedure. 2. Coldness, discoloration, ongoing numbness, severe pain, or swelling. Expect mild tingling of hand and tenderness at the puncture site for up to three days. If this persists beyond three days, or other symptoms develop, notify the Dr. who performed your procedure. BLEEDING: If the procedure site on your wrist begins to bleed, do not panic 1. Place 1 or 2 fingers firmly just slightly above the insertion site to stop the bleeding. You may be able to feel your pulse as you hold pressure. 2. Lift your finger after 5 minutes to see if the bleeding has stopped. 3. Once the bleeding has stopped, gently wipe the wrist area clean with a bandage. * If the bleeding from your wrist does not stop after 10 minutes, or if there is a large amount of bleeding or spurting, call 911 (do not drive yourself to the hospital). SKIN IRRITATION: * You may experience some redness and/or swelling in the area where radiation was administered. If any skin irritation occurs, please contact your family physician. FOLLOW UP VISIT: Keep any scheduled doctor appointments.
[2017-12-16 03:18] VITALS: BP 118/65; PULSE 52; TEMP 37; O2SAT 97
[2017-12-16 06:25] LABS: BASO % 0.5 %; BASO ABS # 0.03 K/uL (0-0.2); EOS % 1.8 %; EOS ABS # 0.12 K/uL (0-0.5); HEMATOCRIT 35.9 % (37-47); HEMOGLOBIN 11.7 g/dL (12.0-16.0); IG# 0.01 K/uL (0.00-0.02); LYMPH % 19.1 %; LYMPH ABS # 1.25 K/uL (1.2-3.4); MEAN CELL VOLUME 88.6 fL (80-100); MEAN CORPUSCULAR HEMOGLOBIN 28.9 pg (25-34); MEAN CORPUSCULAR HGB CONC 32.6 g/dl (32-36); MEAN PLATELET VOLUME 9.9 fL (7.4-10.4); MONO % 8.2 %; MONO ABS # 0.54 K/uL (0.11-0.59); NEUT % 70.2 %; PLATELET COUNT 301 K/uL (130-400); RED CELL DISTRIBUTION WIDTH CV 13.5 % (11.5-14.5); RED CELL DISTRIBUTION WIDTH SD 43.9 fL (36.4-46.3); WHITE BLOOD COUNT 6.55 K/uL (4.8-10.8)
[2017-12-16] MEDS ORDERED: LPT40 PO (06:50)
[2017-12-16] MEDS ORDERED: ASPI-461 PO (06:50)
[2017-12-16] MEDS ORDERED: NTRSLP4 SL (06:50)
[2017-12-16] MEDS ORDERED: BRL90 PO (06:50)
[2017-12-16] MEDS ORDERED: LSN10 PO (06:50)
[2017-12-16 06:58] LABS: CALCIUM 8.7 mg/dl (8.5-10.1); CREATININE 0.73 mg/dl (0.60-1.20); POTASSIUM 3.8 mmol/L (3.5-5.1)
--- NOTE | 2017-12-16 07:09 | Discharge Instructions ---
Discharge Instructions Date of Service Dec 16, 2017. Admission Reason for Admission: AMI Discharge Discharge Diagnosis / Problem: Myocardial Infarction Discharge Goals Goal(s): Improve function, Improve disease control, Improve nutritional status , Learn about illness Activity Recommendations Activity Limitations: per Instructions/Follow-up section . Instructions / Follow-Up Instructions / Follow-Up You are being discharged following your acute myocardial infarction treated with a catheterization and drug eluting stent placement in your right coronary artery. You are being discharged on several new medications which have been shown to have great benefit in patients following myocardial infarction. You will be placed on ticagrelor (an antiplatelet agent), aspirin (Another antiplatelet agent), Lisinopril (An henrry inhibitor), Atorvastatin (A medication used to lower cholesterol and stabilize already existing plaques), and Nitroglycerin (A vasodilator used to treat anginal pain when needed). Information on these medication will be provided for you. Return to your normal level of activities as tolerated and we recommend that you follow up with your primary care provider and cardiology. Cardiology also recommends you attend cardiac rehabilitation information is provided. Current Hospital Diet Patient's current hospital diet: AHA Diet (Heart Healthy) Discharge Diet Recommended Diet: Regular Diet, AHA Diet (Heart Healthy) Procedures Procedures Performed: Right Coronary Artery Drug Eluting Stent Placement Pending Studies Studies pending at discharge: no Laboratory Results Hemoglobin A1c Test 12/14/17 06:03 Range/Units Estimated Average Glucose 117 mg/dl Hemoglobin A1c 5.7 H 4.5-5.6 % Lipid Panel Test 12/14/17 06:03 Range/Units Triglycerides Level 97 0-150 mg/dl Cholesterol Level 169 0-200 mg/dl HDL Cholesterol 50 mg/dl Cholesterol/HDL Ratio 3.4 LDL Cholesterol, Calculated 100 mg/dl Medical Emergencies . Who to Call and When: Medical Emergencies: If at any time you feel your situation is an emergency, please call 911 immediately. . Non-Emergent Contact Non-Emergency issues call your: Primary Care Provider, Follow Up Manager . Past History Medical & Surgical History: (1) Acute ST elevation myocardial infarction (STEMI) of inferior wall . "Provider Documentation" section prepared by Sriram Almanzar. . Aboriginal Education Worker Coordinator Recommendations Aboriginal Education Worker Coordinator Recommendations: ACTIVITY RECOMMENDATIONS: Excess manipulation of the wrist should be avoided for the next 24-48 hours. * No lifting over 2 pounds (approximately a 1/2 gallon of milk) with the utilized arm for 24 hours. * No strenuous activity such as bowling or tennis for 3 days. * Keep the site of the procedure covered with a bandage for 24 hours. *You may shower the day after the procedure. Do not take a tub bath or submerge the puncture site in water for the next 3 days. *Do not operate any motorized equipment for 3 days. SPECIAL CARE INSTRUCTIONS: The site may be slightly bruised and sore following your procedure. Should any of the following occur, contact the Dr. who performed your procedure. 1. Redness/inflammation, swelling, chills, or fever, or colored drainage at procedure site within 3-7 days after your procedure. 2. Coldness, discoloration, ongoing numbness, severe pain, or swelling. Expect mild tingling of hand and tenderness at the puncture site for up to three days. If this persists beyond three days, or other symptoms develop, notify the Dr. who performed your procedure. BLEEDING: If the procedure site on your wrist begins to bleed, do not panic 1. Place 1 or 2 fingers firmly just slightly above the insertion site to stop the bleeding. You may be able to feel your pulse as you hold pressure. 2. Lift your finger after 5 minutes to see if the bleeding has stopped. 3. Once the bleeding has stopped, gently wipe the wrist area clean with a bandage. * If the bleeding from your wrist does not stop after 10 minutes, or if there is a large amount of bleeding or spurting, call 911 (do not drive yourself to the hospital). SKIN IRRITATION: * You may experience some redness and/or swelling in the area where radiation was administered. If any skin irritation occurs, please contact your family physician. FOLLOW UP VISIT: Keep any scheduled doctor appointments.
[2017-12-16 07:20] VITALS: BP 123/63; PULSE 49; TEMP 36.8; O2SAT 98
[2017-12-16] MEDS: TICAGRELOR 90 MG TAB PO SCH (07:51)
[2017-12-16] MEDS: ASPIRIN 81 MG ECTAB PO SCH (07:52)
[2017-12-16] MEDS: ATORVASTATIN 40 MG TAB PO SCH (07:52)
[2017-12-16] MEDS ORDERED: LISINOPRIL 10 MG TAB PO SCH (09:00)
--- NOTE | 2017-12-16 09:39 | Discharge Summary ---
Discharge Summary Date of Service Dec 16, 2017. Discharge Summary Admission Date: Dec 14, 2017 at 03:37 Discharge Disposition: Home Principal Diagnosis: RCA NE Procedures: Cath: Patient Name: TROY GONZALEZ Admit Date: 12/14/17 [facility] Rec: [id number] Att Phy: Acct ID: [id number] Colleen Phy: Samson Gómez M.D. Date: 1950 Fam Phy: Samson Gómez M.D. Age: 67 Location: [facility] Sex: F Room/Bed: CC: Samson Gómez M.D. Jones, Christopher R., MD *NOTICE TO RECEIVING REPUBLICAN/AGENCY This information is strictly Confidential and protected under [place] law. [place] law prohibits you from making any further disclosure of this information unless further disclosure is expressly permitted by the written consent of the person to whom it pertains or is authorized by law. A general authorization for the release of medical or other information is not sufficient for this purpose. Hospital accepts no responsibility if the information is made available to any other person, INCLUDING THE PATIENT. Procedure Note Procedure Date Dec 14, 2017. Pre-Procedure Diagnosis STEMI AUC Score 9 Post-Procedure Diagnosis Severe CAD, Successful PCI, Normal LV Systolic Function, Normal Intracardiac Pressures Procedure(s) Performed Coronary Angiography, Left Heart Cath, Drug Eluting Stent Environmental Monitoring Specialist Boy Gre Instructor(s) contino Estimated Blood Loss <15 Medication(s) Atropine, Fentanyl, Heparin, Nicardipine, Versed, Lidocaine 1% Ticagrelor Summary of Findings Indication: STEMI/Heart Alert Access: 6Fr right radial artery Catheters: Ikari 3.5 guide Findings: LM - Luminal irregularities LAD - Moderate caliber vessel, 50% mid segment stenosis after 2nd diagonal; distal vessel tapers to apex. 2nd diagonal without significant disease. LAD gives left to right collaterals to R-PDA/PLB. Circumflex - Moderate caliber vessel, gives off large OM1 with 30-40% proximal disease. RCA - Dominant, large caliber vessel, diffuse 20-30% mid segment disease; acute subtotal occlusion of distal segment with thrombus. LVEDP - 11; LVEF 55% with inferior hypokinesis -- PCI -- Antithrombotic therapy: Heparin, Ticagrelor Procedure: RCA cannulated with [employer] left 3.5 guide BMW wire passed across lesion into R-PLB Distal RCA lesion predilated with 2.5 compliant balloon Atropine for bradycardia, fluids for relative hypotension. Dilated lesion stented with 3.5 x 18 Mike TIN Stent post-dilated with 3.75 noncompliant balloon IC vasodilators administered for spasm Post procedure HEBER 3 flow, stent well expanded with minimal residual stenosis and no apparent cardiac complications. Arterial Closure: TR Band Summary: 1. Inferior STEMI/Acute on chronic subtotal distal RCA occlusion 2. Mild to moderate non-culprit vessel coronary artery disease - 50% mid LAD - 30-40% proximal OM1 3. Normal intracardiac filling pressure. Preserved LV function. 4. Successful PCI of distal RCA with single drug-eluting stent (3.5 x 18 [place] TIN; post-dilated with 3.75 NC). Recommendations: Admit to ICU for continued monitoring Loaded with Ticagrelor 180mg in sugar laboratory assistant Continue dual-antiplatelet therapy for at least 1 year. Trend troponins until peak, Check Echo Uptitrate beta-cheyenne/ANDREW as BP allows High-dose statin Consult cardiac Rehab Hemodynamics Rest Ao: 108/44/73 Final Ao: 105/47/73 LV: 108/11 Recommendations PCI without planned CABG Specimens None Radiation Exposure (mGy) 1749 Contrast (mls) 100 Opti Fluids (cc crystalloids) 280 NSS Drains none Anesthesia moderate Procedural Complication(s) None Disposition ICU ACC Data Cardiac Status Clinical evaluation leading to the procedure CAD Presntation: STEMI Anginal Classification: CCS IV Heart Failure: No, NYHA Class: CCS I Cardiogenic Shock w/in 24Hrs: No Cardiac Arrest w/in 24Hrs: No Imaging studies past 6 months: No Stress studies past 6 months: No Closure Device Percutaneous Entry Location: Radial Closure Device: Radial Band Recommendations: PCI without planned CABG PCI Indication: Immediate PCI for STEMI Lesion Segment Name: Distal RCA Culprit Artery: Yes Stenosis Prior to Rx (%): 100 Chronic Total Occlusion: No IVUS: No FFR: No Pre-Procedure HEBER Flow: 0 Previously Treated Lesion: No Lesion Complexity: Non-High/Non-C Lesion Length (mm): 12 Thrombus Present: Yes Bifurcation Lesion: No Guidewire Across Lesion: Yes Guidewire: Stenosis Post-Procedure (%): 0 Post-Procedure HEBER Flow: 3 Device(s) Deployed: Yes Intraprocedure Events Significant Dissection: No Perforation: No Interpretation Summary * Name: TROY GONZALEZ Study Date: 12/14/2017 06:26 AM BP: 112/53 mmHg * Patient Location: E107 HR: 65 * : 1950 (M/d/yyyy) Gender: Female Height: 65 in * Age: 67 yrs Ethnicity: CA Weight: 151 lb * Ordering Physician: Ravin Brunson * Referring Physician: Self, Referred * Performed By: Cathie Sky RCS * * Reason For Study: AMI * BSA: 1.8 m2 * -- Conclusions -- * 1. Normal left ventricular size and systolic function. EF 60-65%. Small area of akinesis involving the inferior base, otherwise normal wall motion. No left ventricular hypertrophy. Type 1 diastolic dysfunction. * 2. No significant valvular abnormalities visualized. * 3. Normal estimated right ventricular systolic pressure. * 4. No prior study available for comparison. Procedure Details * A complete two-dimensional transthoracic echocardiogram was performed (2D, M-mode, Doppler and color flow Doppler). Left Ventricle * Normal left ventricular size and systolic function. EF 60-65%. Small area of akinesis involving the inferior base, otherwise normal wall motion. No left ventricular hypertrophy. Type 1 diastolic dysfunction. Right Ventricle * The right ventricle is normal in size and function. * The right ventricular systolic function is normal as assessed by tricuspid annular plane systolic excursion (TAPSE) (normal >1.5 cm). Atria * The left atrial size is normal. * Right atrial size is normal. * There is no evidence of atrial septal defect, but resolution does not allow assessment for a patent foramen ovale. Mitral Valve * The mitral valve is grossly normal. * There is no mitral valve stenosis. * There is trace mitral regurgitation. Tricuspid Valve * The tricuspid valve is not well visualized, but is grossly normal. * There is no tricuspid stenosis. * There is mild tricuspid regurgitation. Aortic Valve * The aortic valve is trileaflet. * No hemodynamically significant valvular aortic stenosis. * No aortic regurgitation is present. Pulmonic Valve * The pulmonary valve is inadequately visualized, but the Doppler data is adequate for interpretation. * There is no pulmonic valvular stenosis. * Trace pulmonic valvular regurgitation. Great Vessels * The aortic root is normal size. * Ascending aorta of normal dimension * Normal pulmonary venous flow pattern. Pericardium/Pleural * Trace pericardial effusion. Great Vessels * Normal inferior vena cava size and collapsability with sniff indicates a normal right atrial pressure of 3 mmHg Last 24 Hours Test 12/16/17 05:47 White Blood Count 6.55 K/uL Red Blood Count 4.05 M/uL Hemoglobin 11.7 g/dL Hematocrit 35.9 % Mean Corpuscular Volume 88.6 fL Mean Corpuscular Hemoglobin 28.9 pg Mean Corpuscular Hemoglobin Concent 32.6 g/dl Platelet Count 301 K/uL Mean Platelet Volume 9.9 fL Neutrophils (%) (Auto) 70.2 % Lymphocytes (%) (Auto) 19.1 % Monocytes (%) (Auto) 8.2 % Eosinophils (%) (Auto) 1.8 % Basophils (%) (Auto) 0.5 % Neutrophils # (Auto) 4.60 K/uL Lymphocytes # (Auto) 1.25 K/uL Monocytes # (Auto) 0.54 K/uL Eosinophils # (Auto) 0.12 K/uL Basophils # (Auto) 0.03 K/uL RDW Standard Deviation 43.9 fL RDW Coefficient of Variation 13.5 % Immature Granulocyte % (Auto) 0.2 % Immature Granulocyte # (Auto) 0.01 K/uL Sodium Level 141 mmol/L Potassium Level 3.8 mmol/L Chloride Level 108 mmol/L Carbon Dioxide Level 27 mmol/L Anion Gap 6.0 mmol/L Blood Urea Nitrogen 12 mg/dl Creatinine 0.73 mg/dl Est Creatinine Clear Calc Drug Dose 66.4 ml/min Estimated GFR () 98.1 Estimated GFR (Non- 84.6 BUN/Creatinine Ratio 16.8 Random Glucose 95 mg/dl Calcium Level 8.7 mg/dl Consultations: cardiology Medication Reconciliation New Medications: Aspirin (Aspirin) 81 Mg Tab 81 MG PO QAM for 30 Days, #30 TAB Atorvastatin (Lipitor) 40 Mg Tab 80 MG PO QAM for 30 Days, #60 TAB Lisinopril (Zestril) 10 Mg Tab 10 MG PO QAM for 30 Days, #30 TAB Nitroglycerin (Nitrostat) 0.4 Mg/1 Tab Subl 0.4 MG SL UD PRN for Chest Pain for 30 Days, #30 Ticagrelor (Brilinta) 90 Mg Tab 90 MG PO BID for 30 Days, #60 TAB Continued Medications: Calcium Carbonate-Vitamin D (Calcium + D) 1 Tab Tab 2 TAB PO QAM Cholecalciferol (Vitamin D) 1,000 Unit Tab 1 TAB PO DAILY Multivitamin (Multivitamin) Tab 1 TAB PO DAILY, TAB Discharge Exam Physical Exam: General Appearance: no apparent distress Eyes: EOMI ENT: hearing grossly normal Neck: trachea midline Respiratory/Chest: no respiratory distress, no accessory muscle use Extremities: normal inspection Neurologic/Psychiatric: painter ordnance II-XII nml as tested, alert, normal mood/affect Skin: normal color, warm/dry Hospital Course RCA NSTEMI -Stents placed -No further angina or SOB, extensive discussion on med management, lifestyle, and follow up -Echocardiogram showing small area of inferior hypokinesis of left ventricle, but preserved ejection fraction and no valvular dysfunction. -Started on statin, dual antiplatelet therapy with aspirin and brilenta, and lisinopril. -metoprolol ordered but due to bradycardia (likely low baseline HR + inferior NE ) was never given. consider starting if possible over next 30 days, if not then would likely just titrate lisinopril Bradycardia -Continued 47 this am -Holding Metoprolol will continue to monitor one more night on telemetry. stable for home, close PCP and outpt f/u BMP next week - since new start lisinopril Total Time Spent: Greater than 30 minutes This includes examination of the patient, discharge planning, medication reconciliation, and communication with other providers. Discharge Instructions Please refer to the electronic Patient Visit Report (Discharge Instructions) for additional information. Additional Copies To Samson Gómez M.D.; Victoriano Quach MD Resident Tracking Resident Involvement: Resident Care Provided Care Provided: [facility]
[2017-12-16 10:27] VITALS: BP 123/63; PULSE 49; TEMP 36.8; O2SAT 98
--- NOTE | 2017-12-16 12:00 | Cardiology Follow-Up ---
Subjective Date of Service: Dec 16, 2017. History of Present Illness She denies shortness of breath, chest pain, palpitations, edema, or bleeding. She felt tired earlier today. She is pending for discharge. Medications Reported Home Medications Medications Dose Route/Sig Max Daily Dose Days Date Category Aspirin 81 Mg Tab 81 Mg PO QAM 30 12/16/17 Rx Nitrostat (Nitroglycerin) 0.4 Mg/1 Tab Subl 0.4 Mg SL UD PRN 12/16/17 Rx Zestril (Lisinopril) 10 Mg Tab 10 Mg PO QAM 30 12/16/17 Rx Lipitor (Atorvastatin Calcium) 40 Mg Tab 80 Mg PO QAM 30 12/16/17 Rx Brilinta (Ticagrelor) 90 Mg Tab 90 Mg PO BID 30 12/16/17 Rx Vitamin D (Cholecalciferol) 1,000 Unit Tab 1 Tab PO DAILY 11/04/17 Reported Multivitamin (Multivitamins) Tab 1 Tab PO DAILY 11/04/17 Reported Calcium + D (Calcium Carbonate-Vitamin D) 1 Tab Tab 2 Tab PO QAM 11/04/17 Reported Objective Vital Signs Past 12 Hours Date Time Temp Pulse Resp B/P (MAP) Pulse Ox O2 Delivery O2 Flow Rate FiO2 12/16/17 10:27 36.8 49 18 98 Room Air 12/16/17 08:00 Room Air 12/16/17 07:20 36.8 49 18 123/63 (83) 98 Room Air 12/16/17 03:18 37.0 52 16 118/65 (82) 97 Room Air Last Recorded Weight-Kilograms: 66.400 Intake & Output 12/15/17 12/16/17 12/17/17 08:00 08:00 08:00 Intake Total 1340 ml 700 ml Output Total 700 ml 600 ml Balance 640 ml 100 ml Physical Exam Gen.: No acute distress. Alert and oriented. HEENT: Anicteric sclera. Neck: No JVD. Cardiac: No ventricular heave. Regular, without ectopy. Normal S1-S2. No audible murmurs, rubs, or gallops. Pulmonary: Clear to auscultation bilaterally without wheezes, rales, or rhonchi. Abdomen: Soft, nontender, nondistended, with normoactive bowel sounds. No bruits noted. Extremities: 2+ right radial pulse. Right radial cath site is clean, dry, and intact without erythema or discharge. No edema or cyanosis. Psychiatric: Affect appears appropriate. Data Laboratory Results: Last 24 Hours Test 12/15/17 15:13 12/16/17 05:47 Troponin I 4.400 ng/ml White Blood Count 6.55 K/uL Red Blood Count 4.05 M/uL Hemoglobin 11.7 g/dL Hematocrit 35.9 % Mean Corpuscular Volume 88.6 fL Mean Corpuscular Hemoglobin 28.9 pg Mean Corpuscular Hemoglobin Concent 32.6 g/dl Platelet Count 301 K/uL Mean Platelet Volume 9.9 fL Neutrophils (%) (Auto) 70.2 % Lymphocytes (%) (Auto) 19.1 % Monocytes (%) (Auto) 8.2 % Eosinophils (%) (Auto) 1.8 % Basophils (%) (Auto) 0.5 % Neutrophils # (Auto) 4.60 K/uL Lymphocytes # (Auto) 1.25 K/uL Monocytes # (Auto) 0.54 K/uL Eosinophils # (Auto) 0.12 K/uL Basophils # (Auto) 0.03 K/uL RDW Standard Deviation 43.9 fL RDW Coefficient of Variation 13.5 % Immature Granulocyte % (Auto) 0.2 % Immature Granulocyte # (Auto) 0.01 K/uL Sodium Level 141 mmol/L Potassium Level 3.8 mmol/L Chloride Level 108 mmol/L Carbon Dioxide Level 27 mmol/L Anion Gap 6.0 mmol/L Blood Urea Nitrogen 12 mg/dl Creatinine 0.73 mg/dl Est Creatinine Clear Calc Drug Dose 66.4 ml/min Estimated GFR () 98.1 Estimated GFR (Non- 84.6 BUN/Creatinine Ratio 16.8 Random Glucose 95 mg/dl Calcium Level 8.7 mg/dl Telemetry reviewed: No arrhythmia. Sinus rhythm. Assessment and Plan ASSESSMENT/PLAN: 1. Acute RCA STEMI: No further angina following PCI of distal RCA. Continue aspirin 81 mg daily indefinitely. Continue Brilinta for at least 1 year. Continue high-intensity statin therapy. Continue ANDREW-inhibitor. No beta- cheyenne due to bradycardia. 2. Nonsustained ventricular tachycardia: We discussed the diagnosis. No further arrhythmia in the past 24 hours. Beta-cheyenne has not been initiated secondary to bradycardia with heart rates in the low to mid 50s and at times throughout her hospitalization in the upper 40s. Asymptomatic. 3. Bradycardia: Beta-cheyenne discontinued, although she did not receive a dose. She is asymptomatic with her bradycardia. No further intervention necessary at this time. 5. Disposition: She is being discharged today. Follow-up with Dr. Brunson in the next 1-2 weeks. Cardiac rehabilitation recommended. She was advised to call 911 if she has chest discomfort that persists for greater than 5 minutes despite nitroglycerin therapy.
== END 2017-12-16 11:41 | disposition home or self-care (01) | DRG 247 ==
LOC: C.EDB 01:49 → C.MSICU 02:40 → ENRESERV 03:06 → C.MSICU 03:37 → ENRESERV 12-15 09:00 → C.2T 12-15 10:41
PROVIDERS: ADMIT Internal Medicine; ATTEND Family Medicine
PROC: B211YZZ Fluoroscopy of Multiple Coronary Arteries using Other Contrast (ICD-10-PCS; principal; 2017-12-14 02:28)
PROC: 027034Z Dilation of Coronary Artery, One Artery with Drug-eluting Intraluminal Device, Percutaneous Approach (ICD-10-PCS; principal; 2017-12-14 02:28)
PROC: 4A023N7 Measurement of Cardiac Sampling and Pressure, Left Heart, Percutaneous Approach (ICD-10-PCS; principal; 2017-12-14 02:28)
DX: I21.19 ST elevation (STEMI) myocardial infarction involving other coronary artery of inferior wall (principal); I25.10 Atherosclerotic heart disease of native coronary artery without angina pectoris; R00.1 Bradycardia, unspecified; R73.9 Hyperglycemia, unspecified; Z88.0 Allergy status to penicillin

== ENCOUNTER → 2017-12-22 | Outpatient (CLI) | payer OTHER ==
[~2017-12-22] MED LIST changes: +ASPI-461 PO; +BRL90 PO; +LPT40 PO; +LSN10 PO; +NTRSLP4 SL
[2017-12-22 14:22] LABS: BLOOD UREA NITROGEN 13 mg/dl (7-18); CALCIUM 9.4 mg/dl (8.5-10.1); CARBON DIOXIDE 26 mmol/L (21-32); CREATININE 0.85 mg/dl (0.60-1.20); GLUCOSE 97 mg/dl (70-99); POTASSIUM 4.3 mmol/L (3.5-5.1); SODIUM 137 mmol/L (136-145)
== END | disposition home or self-care (01) ==
LOC: C.LABBC 11:43
PROVIDERS: ATTEND Physician Assistant Medical
DX: E78.5 Hyperlipidemia, unspecified (principal); I25.10 Atherosclerotic heart disease of native coronary artery without angina pectoris

== ENCOUNTER 2023-05-06 13:41 | Inpatient (IN) ==
[2023-05-06] MEDS ORDERED: SODIUM CHLORIDE 0.9% 500 ML IV STA (13:51)
--- NOTE | 2023-05-06 13:51 | ED Triage Note ---
Date of Service May 06, 2023 Provider in Triage Author: Jaja Callaway History of Present Illness This patient was briefly evaluated while in triage. An abbreviated physical exam was performed. This patient is a 72-year-old Female who presents to the ED for evaluation of lower abdominal pain that started a couple hours ago. Pain has progressively gotten worse. No nausea, vomiting, or fevers. Denies any urinary symptoms. No fevers. Feels like she will have diarrhea, but has not had diarrhea. Has been having normal BMs. History of diverticulosis on her recent colonoscopy. Physical Exam GENERAL: Non-toxic and in no acute distress. HEENT: Pupils equal. No obvious scleral icterus. HEART: Regular rate and rhythm. LUNGS: Clear to auscultation. No accessory muscle use. ABDOMEN: Tender to palpation diffusely in the lower abdomen, but worse in the LLQ. No guarding or rigidity. NEURO: Alert and oriented. No obvious neurological deficits on quick neuro exam. Initial orders for labs and / or imaging were placed and patient was placed in the waiting area until a bed is available. Please see further documentation for the full ED course. MDM / Impression Impression Impression: Diverticulitis, Calculus of left ureter, Hydronephrosis, left, Syncope, near, Gallstones
[2023-05-06] MEDS ORDERED: ONDANSETRON INJ 2 MG/ML 2 ML VIAL IV STA (14:33)
[2023-05-06] MEDS ORDERED: MoRPHine SULFATE 10 MG/ML CARP/VIAL IV STA ×2 (14:33→16:18)
[2023-05-06] MEDS ORDERED: SODIUM CHLORIDE 0.9% 500 ML IV ONE (14:33)
--- NOTE | 2023-05-06 14:34 | Emergency Department Note ---
Impression & Plan Diverticulitis, Calculus of left ureter, Hydronephrosis, left, Syncope, near, Gallstones ED Provider Note Name: TROY GONZALEZ Age: 72 Sex: Female Arrives Via: Walk-In Informant: Patient, family ED Provider: Graham Ziegler MD Chief Complaint: Abdominal pain Impression: As per impressions above Medical Decision Makin-year-old female with a history of ID amongst other past medical history arrives for evaluation of rapid onset lower abdominal pain this afternoon. So severe that she had a near syncopal event in the ER waiting room. Arrives in significant distress though stable vital signs and afebrile. She does have some tenderness palpation lower abdomen but not overt peritonitis. CT abdomen pelvis was ordered and laboratory workup obtained. IV narcotics given with improvement x 2. Laboratory workup is relatively benign. CT does show diffuse relatively severe diverticulitis with some free fluid but no evidence of perforation. Also shows left ureteral stone with some mild hydronephrosis. Patient also noted to have some gallstones. Patient is without any right upper quadrant pain and normal LFTs I think obstructing stone is unlikely. Patient has left lower abdominal pain but no significant left flank pain. I think obstructing ureteral stone may be part of the issue but the primary issue is likely the severe diverticulitis she has. While she is not septic and otherwise is stable the degree of infection and the requirement for a second round of IV narcotics I do feel that hospitalization reasonable. She notes she is anaphylactic to penicillin and cephalosporins thus we will use Cipro/Flagyl for treatment. Hospitalist was consulted who will bring in for further management. At time of hospitalization patient is not in severe sepsis or septic shock and looks much more comfortable. Triage/Nursing Notes reviewed by Me Differential:Diverticulitis, perforated viscus, obstruction, ischemia, aortic pathology, renal colic, UTI, pyelonephritis, many other pathologies considered Vital Signs: reviewed and remarkable for no significant abnormalities Interventions: Morphine 6 mg IV x 2, Zofran 4 mg IV, Cipro 400 mg IV, Flagyl 500 mg IV, normal saline bolus 1 L IV Labs:ED labs Reviewed by me and remarkable for no significant abnormalities Imaging:CT of the abdomen pelvis with IV contrast as per my informal interpretation reveals diffuse severe colitis with diverticulitis no obstruction, no free air. Radiologist confirms this finding as well as noting stones within the gallbladder, bile duct, left ureter and mild left hydronephrosis. Consults:Dr. Osorio [facility] hospitalist service Plan: Disposition:Hospitalization. Condition: Good History of Present Illness: 72-year-old female arrives for evaluation of abdominal pain. Patient notes sudden onset of lower abdominal pain about 2 to 3 hours ago. Severe unrelenting pain but does wax and wane a bit. When she has severe pain she gets nauseous and feels like she is going to pass out. On arrival to the ER patient did have a near syncopal event and required to be placed in a stretcher. Patient notes pain is stabbing in nature. She denies any current nausea. Has not been having diarrhea or urinary symptoms. She states she been doing well the last few days no other symptoms. No trauma falls, injuries. No medications prior to arrival. Notes a history of diverticulosis but has never had diverticulitis. No previous abdominal surgeries. Past Medical History:See Below Home Medications:See Below Allergies:Penicillins Vitals:Blood Pressure: 168/71, Pulse 56, RR 20, T 36.5C, O2 95% on RA Physical Exam: GENERAL: Patient is uncomfortable appearing and in moderate distress. RESPIRATORY: No dyspnea. Clear to auscultation and equal bilaterally. CARDIOVASCULAR: Regular rate and rhythm.No murmur appreciated. GASTROINTESTINAL: Tenderness palpation over the left lower abdomen no peritonitis, no pulsating masses EXTREMITIES: Normal motion all extremities, no cyanosis, no edema. NEUROLOGIC: Alert and oriented. No focal neurologic deficits appreciated SKIN: No rash, no jaundice, no diaphoresis. PSYCH: Appropriate GCS: 15 ED Course: Times/Reassessments: Patient stable and she does have some further discomfort requiring IV pain meds it is agreeable to hospitalization. Graham Ziegler MD Past Med/Surg History Medical History (Updated 05/06/23 @ 17:30 by Graham Ziegler MD) Dupuytren's contracture Hearing loss History of basal cell carcinoma Coronary artery disease Hypertension Hyperlipidemia Visit for review of DEXA scan 05/24/2015 RECOMMENDED REPEAT IN 5 YRS Surgical History (Updated 03/06/23 @ 12:43 by Santos Dunn, ) S/P tubal ligation S/P tonsillectomy S/P dilation and curettage S/P colonoscopy 02/2023 unclear f/u waiting on GI, previously q5yrs S/P appendectomy Family History Father Parents Abdominal aortic aneurysm Hypertension Family/Other No problems noted. Mother Colorectal cancer Parents Congenital kidney disease Denies family history of Ovarian cancer Prostate cancer Diabetes Myocardial infarction Breast cancer Lung cancer Stroke Social History Smoking Status: Never smoker Second Hand Exposure: No; Do You Dip or Chew Tobacco: No; Hx Alcohol Use: Yes Alcohol type: wine Alcohol Intake Frequency: 2-3 x/Week Alcohol Intake Frequency Comment: thursday supper Hx Substance Use: No Preferred Language: Croatian Visual Impairment: Limited Hearing Ability: Use of Hearing Aid marital status: / Current Living Situation: Alone current occupational status: retired current occupation: NURSE How many Children do You have: 1 Feels Safe at Home: Yes Childhood Exposure to Second-Hand Smoke: Yes caffeine: Yes (2 cups a day ) Dental Care, Regularly: Yes Physical Activity Frequency: Daily Seatbelt Use: always Sunscreen Use: Yes Assistive Devices: Hearing Aid - Bilateral Allergies Allergies Allergy/AdvReac Type Severity Reaction Status Date / Time Cephalosporins Allergy Severe Anaphylaxis Verified 05/06/23 17:02 Penicillins Allergy Severe Anaphylaxis Verified 05/06/23 17:02 bee venom protein (honey bee) Allergy Intermediate Arm Verified 05/06/23 17:02 swelling Jdwysji-YPM-UuA Reductase AdvReac Intermediate Abnormal Verified 05/06/23 17:02 Inhibitor labs [Iqsclwb-Mod-Cdp Reductase Inhibitor] Home Meds Home Medications Medication Instructions Recorded Confirmed aspirin 81 mg tablet,delayed 81 mg PO QPM 12/15/18 05/06/23 release multivitamin (Daily Multi-Vitamin 1 tab PO DAILY 12/15/18 05/06/23 tablet) calcium carbonate 600 mg-vitamin 1 tab PO DAILY 03/28/19 05/06/23 D3 10 mcg (400 unit) chewable tablet (Calcium 600 with Vitamin D3) cholecalciferol (vitamin D3) 25 1,000 units PO DAILY 03/28/19 05/06/23 mcg (1,000 unit) capsule lactobacillus combination no.9 4 4,000 mmu cells PO DAILY 03/28/19 05/06/23 billion cell capsule (Adult 50 Plus Probiotic) omega-3 fatty acids 1,000 mg 1,000 mg PO DAILY 03/28/19 05/06/23 capsule calcium polycarbophil 625 mg 625 mg PO DAILY 03/06/20 05/06/23 tablet (Fiber-Tabs) Previous Rx's Medication Instructions Recorded ezetimibe 10 mg tablet (Zetia) 10 mg PO DAILY #90 tabs 04/21/23 losartan 50 mg tablet 50 mg PO QAM #90 tabs 04/21/23 metoprolol tartrate 25 mg tablet 12.5 mg (1/2 x 25 mg) PO BID #180 04/21/23 tabs nitroglycerin 0.4 mg sublingual 0.4 mg sublingual DIRECTED PRN 04/21/23 tablet Chest Pain #25 tabs Results & Data (ED) Vital Signs Vital Signs - 24 hr 05/06/23 13:48 05/06/23 14:20 05/06/23 14:30 Temperature 36.5 C Temperature Source Temporal Artery Scan Pulse Rate 66 60 Pulse Rate [Apical] 58 L Pulse Rate from SpO2 Sensor 59 L Pulse Rhythm [Apical] Regular Pulse Strength [Apical] Normal Respiratory Rate 20 16 19 Respiratory Effort / Characteristics Non-Labored Spontaneous Respiratory Depth Normal Respiratory Pattern Regular Blood Pressure 168/71 H 152/76 H Blood Pressure [Right Arm] 162/71 H Blood Pressure Mean 103 101 Blood Pressure Mean [Right Arm] 101 Blood Pressure Position [Right Arm] Semi-fowlers Pulse Oximetry 95 97 97 Oxygen Delivery Method Room Air Sepsis Recent Fever Within 48 Hours No Sepsis New/Unexplained Change in Mental Status N/A Sepsis Action Taken by Nursing No Action Required 05/06/23 14:31 05/06/23 15:00 05/06/23 15:00 Temperature Temperature Source Pulse Rate 56 L 64 Pulse Rate [Apical] Pulse Rate from SpO2 Sensor 64 Pulse Rhythm [Apical] Pulse Strength [Apical] Respiratory Rate Respiratory Effort / Characteristics Respiratory Depth Respiratory Pattern Blood Pressure 151/78 H Blood Pressure [Right Arm] Blood Pressure Mean 109 Blood Pressure Mean [Right Arm] Blood Pressure Position [Right Arm] Pulse Oximetry 93 95 Oxygen Delivery Method Sepsis Recent Fever Within 48 Hours Sepsis New/Unexplained Change in Mental Status Sepsis Action Taken by Nursing 05/06/23 15:23 05/06/23 15:23 05/06/23 15:30 Temperature Temperature Source Pulse Rate 75 73 Pulse Rate [Apical] Pulse Rate from SpO2 Sensor 77 72 Pulse Rhythm [Apical] Pulse Strength [Apical] Respiratory Rate 18 19 Respiratory Effort / Characteristics Respiratory Depth Respiratory Pattern Blood Pressure 142/83 H Blood Pressure [Right Arm] Blood Pressure Mean 99 Blood Pressure Mean [Right Arm] Blood Pressure Position [Right Arm] Pulse Oximetry 94 95 Oxygen Delivery Method Sepsis Recent Fever Within 48 Hours Sepsis New/Unexplained Change in Mental Status Sepsis Action Taken by Nursing 05/06/23 16:00 Temperature Temperature Source Pulse Rate 72 Pulse Rate [Apical] Pulse Rate from SpO2 Sensor 72 Pulse Rhythm [Apical] Pulse Strength [Apical] Respiratory Rate 18 Respiratory Effort / Characteristics Respiratory Depth Respiratory Pattern Blood Pressure 139/75 Blood Pressure [Right Arm] Blood Pressure Mean 102 Blood Pressure Mean [Right Arm] Blood Pressure Position [Right Arm] Pulse Oximetry 92 Oxygen Delivery Method Sepsis Recent Fever Within 48 Hours Sepsis New/Unexplained Change in Mental Status Sepsis Action Taken by Nursing Laboratory Data 05/06/23 14:29 05/06/23 14:29 Lab Results 05/06/23 05/06/23 Range/Units 14:29 Unknown WBC 11.72 H (4.8-10.8) K/ul RBC 3.91 L (4.20-5.40) M/uL Hgb 11.4 L (12.0-16.0) g/dl Hct 34.5 L (37.0-47.0) % MCV 88.2 (80.0-100.0) fL MCH 29.2 (25.0-34.0) pg MCHC 33.0 (32.0-36.0) g/dL RDW Std Deviation 42.7 (36.4-46.3) fL RDW Coeff of Kvng 13.3 (11.5-14.5) % Plt Count 391 (130-400) K/uL MPV 9.6 (9.4-12.4) fL Immature Gran % (Auto) 0.3 % Neut % (Auto) 83.7 % Lymph % (Auto) 10.2 % [place] % (Auto) 4.8 % Eos % (Auto) 0.6 % Baso % (Auto) 0.4 % Neut # (Auto) 9.81 H (1.40-6.50) K/uL Lymph # (Auto) 1.19 L (1.20-3.40) K/uL [place] # (Auto) 0.56 (0.11-0.59) K/uL Eos # (Auto) 0.07 (0.00-0.50) K/uL Baso # (Auto) 0.05 (0.00-0.20) K/uL Immature Gran # (Auto) 0.04 (0.01-0.20) K/uL Sodium 139 (136-145) mmol/L Potassium 3.7 (3.5-5.1) mmol/L Chloride 104 (98-107) mmol/L Carbon Dioxide 26 (21-32) mmol/L Anion Gap 9 (3-11) BUN 15 (6-23) mg/dl Creatinine 0.87 (0.6-1.2) mg/dl Est Cr Clr Drug Dosing 51.8 ml/min Est GFR ( Amer) 76.6 ml/min Est GFR (Non-Af Amer) 66.1 ml/min BUN/Creatinine Ratio 17.2 (10-20) Glucose 151 H (70-99(Fasting)) mg/dl Calcium 9.5 (8.6-10.3) mg/dl Total Bilirubin 0.4 (0.2-1.0) mg/dl AST 14 (13-39) U/L ALT 12 (7-52) U/L Alkaline Phosphatase 68 (34-104) U/L Troponin I High Sens 4.0 (0-14) pg/ml Total Protein 7.8 (6.0-8.3) gm/dl Albumin 4.1 (3.4-5.0) gm/dl Globulin 3.7 (2.5-4.0) gm/dl Albumin/Globulin Ratio 1.1 (0.9-2) Lipase 21 (11-82) U/L Urine Color Yellow Urine Appearance Turbid A (Clear) Urine pH 7.0 (4.5-7.5) Ur Specific [place] 1.024 (1.000-1.030) Urine Protein Negative (Negative) Urine Glucose (UA) Negative (Negative) Urine Ketones Negative (Negative) Urine Blood Negative (Negative) Urine Nitrite Negative (Negative) Urine Bilirubin Negative (Negative) Urine Urobilinogen Negative (Negative) Ur Leukocyte Esterase Negative (Negative) Urine WBC (Auto) 1-5 (0-5) /hpf Urine RBC (Auto) 0-4 (0-4) /hpf U Hyaline Cast (Auto) 1-5 (0-5) /lpf U Epithel Cells (Auto) >30 H (0-5) /lpf Urine Bacteria (Auto) Negative (Negative) Administered Medications Discontinued Medications Sodium Chloride (Nss) 500 mls @ 999 mls/hr IV .Q31M STA Stop: 05/06/23 14:21 Last Infusion: 05/06/23 16:08 Dose: Infused Documented By: Admin: 05/06/23 14:32 Dose: 999 mls/hr Documented By: LUDIVINA Sodium Chloride (Nss) 500 mls @ 999 mls/hr IV .Q31M ONE Stop: 05/06/23 15:03 Last Infusion: 05/06/23 16:04 Dose: Infused Documented By: Admin: 05/06/23 14:41 Dose: 999 mls/hr Documented By: LUDIVINA Metronidazole (Flagyl) 500 mg in 100 mls @ 100 mls/hr IV NOW STA Stop: 05/06/23 17:16 Last Admin: 05/06/23 16:33 Dose: 100 mls/hr Documented By: NOE Ioversol (Optiray 320 500ml) 92 ml IV ONCE ONE Stop: 05/06/23 15:15 Last Admin: 05/06/23 15:15 Dose: 92 ml Documented By: VANESSA Morphine Sulfate (Morphine Sulfate 10 Mg/Ml Carp/Vial) 6 mg IV NOW STA Stop: 05/06/23 14:34 Last Admin: 05/06/23 14:40 Dose: 6 mg Documented By: NOE Ondansetron HCl (Ondansetron Inj 2 Mg/Ml 2 Ml Vial) 4 mg IV NOW STA Stop: 05/06/23 14:34 Last Admin: 05/06/23 14:45 Dose: 4 mg Documented By: NOE Imaging Data Radiologist's Impression: Abdomen/Pelvis CT 05/06/23 13:[address] WITH IV CONTRAST CT DOSE: 897.02 mGy.cm HISTORY: Acute lower abdominal pain Lower abdominal pain TECHNIQUE: Multiaxial CT images of the abdomen and pelvis were performed following the IV administration of 92 cc of Optiray, A dose lowering technique was utilized adhering to the principles of ALARA. COMPARISON STUDY: None. FINDINGS: Cardiomegaly with coronary artery calcifications. Mild subsegmental bibasilar atelectasis. 4 mm indeterminate low suspicion solid nodule of the basal left lower lobe on image 27. No pneumoperitoneum identified. Unremarkable spleen and left adrenal gland. Indeterminate soft tissue attenuating 2 cm right adrenal gland lesion. Cholelithiasis without CT evidence of acute cholecystitis. The common bile duct is upper limits of normal at 7 mm. Mild dilation of the pancreatic duct at the level of the pancreatic head measuring up to 6 mm. Possible punctate stone within the duodenal ampulla on image 129. Minimal intrahepatic biliary ductal prominence. Patent portal vein. Exophytic 2.27 m cyst of the inferior pole left kidney. 3 mm nonobstructing calculus of the superior pole right kidney with a punctate calculus of the inferior pole. Mild left-sided hydronephrosis with 4 mm calculus of the distal left ureter on image 265 position a few centimeters up stream to the ureterovesicular junction. Atherosclerosis of the aorta. Subcentimeter retroperitoneal lymph nodes may be reactive. Heterogeneous uterus with scattered calcifications. Mild urinary bladder wall thickening. Small hiatal hernia with mild distal esophageal wall thickening. Duodenal diverticulum. Colonic diverticulosis. There is moderate wall thickening within the mid sigmoid colon on image 245 series 3 resulting in associated luminal narrowing. There is a large diverticulum of the proximal sigmoid measuring up to 3.3 cm on image 263. There are adjacent inflammatory changes in the sigmoid mesocolon with trace free pelvic fluid. Lymph nodes within the sigmoid mesocolon measuring up to 8 mm. Subcentimeter perirectal lymph nodes. Moderate colonic fecal retention. Appendectomy. Tiny fat filled umbilical hernia. No acute fracture. IMPRESSION: 1. Colonic diverticulosis with moderate wall thickening within the sigmoid and rectum. Additionally, there is pericolonic and perirectal inflammatory stranding with trace free fluid. Findings are favored to represent acute on chronic diverticulitis. Correlation with follow-up colonoscopy recommended in order to exclude an underlying mucosal neoplasm. 2. Mild perirectal and sigmoid mesocolon lymphadenopathy. 3. No pneumoperitoneum or drainable fluid collection. 4. Mild left-sided hydronephrosis secondary to an obstructing 4 mm calculus of the distal left ureter. 5. Cholelithiasis is noted with mild common bile and pancreatic ductal dilation. Possible punctate calculus within the duodenal ampulla. Correlate with laboratory analysis and GI consultation. 6. Right nephrolithiasis. ACT 112: Negative or not required by law. The above report was generated using voice recognition software. It may contain grammatical, syntax or spelling errors. Electronically signed by: Ronnell Ruiz M.D. 05/06/2023 3:54 PM Discharge Plan Visit Data Chief Complaint: Abdominal Pain Stated Complaint: ABD PAIN, LIGHT HEADED ED Provider: Graham Ziegler Discharge Problem: Diverticulitis, Calculus of left ureter, Hydronephrosis, left, Syncope, near, Gallstones Forms Stand Alone Forms: [facility] [employer] Prescriptions Prescriptions: No Action Calcium 600 with Vitamin D3 600 mg(1,500mg) -400 unit tablet,chewable 1 tab PO DAILY omega-3 fatty acids 1,000 mg capsule 1,000 mg PO DAILY Adult 50 Plus Probiotic 4 billion cell capsule 4,000 mmu cells PO DAILY cholecalciferol (vitamin D3) 1,000 unit capsule 1,000 units PO DAILY nitroglycerin 0.4 mg tablet, sublingual 0.4 mg SL DIRECTED PRN (Reason: Chest Pain) Qty: 25 3RF Rx Instructions: PLACE ONE TABLET UNDER THE TONGUE EVERY 5 MINUTES FOR UP TO 3 DOSES OVER 15 MINUTES IF NEEDED FOR CHEST PAIN ezetimibe [Zetia] 10 mg tablet 10 mg PO DAILY Qty: 90 3RF losartan 50 mg tablet 50 mg PO QAM Qty: 90 3RF metoprolol tartrate 25 mg tablet 12.5 mg PO BID Qty: 180 3RF aspirin 81 mg tablet,delayed release (DR/EC) 81 mg PO QPM multivitamin [Daily Multi-Vitamin] tablet 1 tab PO DAILY calcium polycarbophil [Fiber-Tabs] 625 mg tablet 625 mg PO DAILY Referrals Referrals: Santos Dunn DO [Primary Care Provider] -
[2023-05-06 14:43] LABS: Basophils # (auto) 0.05 K/uL (0.00-0.20); Basophils % (auto) 0.4 %; Eosinophils # (auto) 0.07 K/uL (0.00-0.50); Eosinophils % (auto) 0.6 %; Hematocrit (blood only) 34.5 % (37.0-47.0); Hemoglobin 11.4 g/dl (12.0-16.0); Immature Granulocytes # (auto) 0.04 K/uL (0.01-0.20); Immature Granulocytes % (auto) 0.3 %; Lymphocytes # (auto) 1.19 K/uL (1.20-3.40); Lymphocytes % (auto) 10.2 %; Mean Corpuscular Hemoglobin 29.2 pg (25.0-34.0); Mean Corpuscular Volume 88.2 fL (80.0-100.0); Mean Platelet Volume 9.6 fL (9.4-12.4); Monocytes # (auto) 0.56 K/uL (0.11-0.59); Monocytes % (auto) 4.8 %; Neutrophils # (auto) 9.81 K/uL (1.40-6.50); Neutrophils % (auto) 83.7 %; Platelet Count 391 K/uL (130-400); RDW Coefficient of Variation 13.3 % (11.5-14.5); RDW Standard Deviation 42.7 fL (36.4-46.3); Red Blood Count 3.91 M/uL (4.20-5.40); White Blood Count 11.72 K/ul (4.8-10.8)
[2023-05-06 14:59] LABS: Albumin Globulin Ratio 1.1 (0.9-2); Albumin Level 4.1 gm/dl (3.4-5.0); BUN Creatinine Ratio 17.2 (10-20); Bilirubin,Total 0.4 mg/dl (0.2-1.0); Calcium 9.5 mg/dl (8.6-10.3); Creatinine Clr Calc Pharmacy 51.8 ml/min; Est GFR (African American) 76.6 ml/min; Est GFR (Non-African American) 66.1 ml/min; Globulin 3.7 gm/dl (2.5-4.0); Potassium 3.7 mmol/L (3.5-5.1); Total Protein 7.8 gm/dl (6.0-8.3)
[2023-05-06] MEDS ORDERED: OPTIRAY 320 500ml IV ONE (15:14)
--- NOTE | 2023-05-06 15:23 | Electrocardiogram Report ---
Test Reason : Blood Pressure : / mmHG Vent. Rate : 059 BPM Atrial Rate : 059 BPM P-R Int : 152 ms QRS Dur : 082 ms QT Int : 426 ms P-R-T Axes : 052 -12 052 degrees QTc Int : 421 ms Sinus bradycardia Minimal voltage criteria for LVH, may be normal variant possible Inferior infarct (cited on or before 14-DEC-2017) Anteroseptal infarct , age undetermined Abnormal ECG When compared with ECG of 23-NOV-2019 17:59, Anteroseptal infarct is now Present Confirmed by Ravin Long ([id number]) on 05/06/2023 3:23:06 PM Referred By: Confirmed By:Chris Long
[2023-05-06 15:40] LABS: Appearance Urine Turbid (Clear); Bacteria Urine Automated Negative (Negative); Bilirubin Urine Negative (Negative); Blood Urine Negative (Negative); Color Urine Yellow; Epithelial Cell Urine Auto >30 /lpf (0-5); Glucose Urine UA Negative (Negative); Ketones Urine Negative (Negative); Leukocyte Esterase Urine Negative (Negative); Nitrite Urine Negative (Negative); Protein Urine Negative (Negative); RBC Urine Automated 0-4 /hpf (0-4); Specific Gravity Urine 1.024 (1.000-1.030); Urobilinogen Urine Negative (Negative)
--- NOTE | 2023-05-06 15:56 | CT Scan Report ---
ABDOMEN AND PELVIS CT WITH IV CONTRAST CT DOSE: 897.02 mGy.cm HISTORY: Acute lower abdominal pain Lower abdominal pain TECHNIQUE: Multiaxial CT images of the abdomen and pelvis were performed following the IV administrat ion of 92 cc of Optiray, A dose lowering technique was utilized adhering to the principles of ALARA. COMPARISON STUDY: None. FINDINGS: Cardiomegaly with coronary artery calcifications. Mild subsegmental bibasilar atelectasis. 4 mm indeterminate low suspicion solid nodule of the basal left lower lobe on image 27. No pneumoperi toneum identified. Unremarkable spleen and left adrenal gland. Indeterminate soft tissue attenuating 2 cm right adrenal gland lesion. Cholelithiasis without CT evidence of acute cholecystitis. The common bile duct is uppe r limits of normal at 7 mm. Mild dilation of the pancreatic duct at the level of the pancreatic head measuring up to 6 mm. Possible punctate stone within the duodenal ampulla on image 129. Minimal intra hepatic biliary ductal prominence. Patent portal vein. Exophytic 2.27 m cyst of the inferior pole left kidney. 3 mm nonobstructing calculus of the superior pole right kidney with a punctate calculus of the inferior pole. Mild left-sided hydronephrosis with 4 mm calculus of the distal left ureter on image 265 position a few centimeters up stream to the ure terovesicular junction. Atherosclerosis of the aorta. Subcentimeter retroperitoneal lymph nodes may b e reactive. Heterogeneous uterus with scattered calcifications. Mild urinary bladder wall thickening. Small hiatal hernia with mild distal esophageal wall thickening. Duodenal diverticulum. Colonic diver ticulosis. There is moderate wall thickening within the mid sigmoid colon on image 245 series 3 resul ting in associated luminal narrowing. There is a large diverticulum of the proximal sigmoid measuring up to 3.3 cm on image 263. There are adjacent inflammatory changes in the sigmoid mesocolon with tra ce free pelvic fluid. Lymph nodes within the sigmoid mesocolon measuring up to 8 mm. Subcentimeter pe rirectal lymph nodes. Moderate colonic fecal retention. Appendectomy. Tiny fat filled umbilical herni a. No acute fracture. IMPRESSION: 1. Colonic diverticulosis with moderate wall thickening within the sigmoid and rectum. Additionally, there is pericolonic and perirectal inflammatory stranding with trace free fluid. Findings are favore d to represent acute on chronic diverticulitis. Correlation with follow-up colonoscopy recommended in order to exclude an underlying mucosal neoplasm. 2. Mild perirectal and sigmoid mesocolon lymphadenopathy. 3. No pneumoperitoneum or drainable fluid collection. 4. Mild left-sided hydronephrosis secondary to an obstructing 4 mm calculus of the distal left ureter . 5. Cholelithiasis is noted with mild common bile and pancreatic ductal dilation. Possible punctate ca lculus within the duodenal ampulla. Correlate with laboratory analysis and GI consultation. 6. Right nephrolithiasis. ACT 112: Negative or not required by law. The above report was generated using voice recognition software. It may contain grammatical, syntax o r spelling errors. Electronically signed by: Ronnell Ruiz M.D. 05/06/2023 3:54 PM
[2023-05-06] MEDS ORDERED: metroNIDAZOLE 500 MG/100 ML BAG IV STA (16:17)
[2023-05-06] MEDS ORDERED: cefOXitin 2,000 MG/60 ML BAG IV STA (16:17)
[2023-05-06] MEDS ORDERED: CIPROFLOXACIN / D5W 400 MG/200 ML BAG IV STA (16:30)
--- NOTE | 2023-05-06 17:04 | History & Physical Report ---
Date of Service May 06, 2023 Assessment & Plan (1) Syncope, near: (2) Hydronephrosis, left: (3) Calculus of left ureter: (4) Diverticulitis: (5) Coronary artery disease: (6) Hypertension: (7) Hyperlipidemia: (8) Statin myopathy: (9) Gallstones: Plan Acute on chronic diverticulitis/lymphadenopathy- Patient has severe reaction to penicillins and cephalosporins Cipro 400 mg IV every 12 hours, and Flagyl 500 mg IV every 8 hours Ice chips and sips Consult gastroenterology, as diverticulitis noted to be quite severe NSS plus KCl 20 mill equivalents at 100 mL/h 4 mm distal left ureteral calculus/mild left hydronephrosis- Follow urine culture and sensitivity Patient has not had any urinary symptoms Antibiotics as above Consult urology Mildly dilated common bile duct and pancreatic duct- Question punctate calculus at the duodenal ampulla Patient reports she had has had dilated ducts in the past, and does not have any symptoms related to gallbladder dysfunction CAD/hypertension/hyperlipidemia- Continue metoprolol tartrate Hold losartan and Zetia History of Present Illness Chief Complaint: The patient presents to the emergency department with complaint of worsening lower abdominal pain that began this morning, and worsened into the afternoon Primary Care Provider: Santos Dunn DO The patient is a 72-year-old female with a past medical history including CAD, hypertension, hyperlipidemia, and distant history of diverticulitis. She presents to the emergency department with rapidly worsening lower abdominal pain, and nearly passed out in the morning emergency department due to its intensity. She denies any recent travels or sick exposures. She denies any change in her usual dietary intake. Allergies Allergy/AdvReac Type Severity Reaction Status Date / Time Cephalosporins Allergy Severe Anaphylaxis Verified 05/06/23 17:02 Penicillins Allergy Severe Anaphylaxis Verified 05/06/23 17:02 bee venom protein (honey bee) Allergy Intermediate Arm Verified 05/06/23 17:02 swelling Yhzkegs-QNW-HhP Reductase AdvReac Intermediate Abnormal Verified 05/06/23 17:02 Inhibitor labs [Wjyknpf-Roj-Lzp Reductase Inhibitor] Home Medications Medication Instructions Recorded Confirmed Type aspirin 81 mg tablet,delayed 81 mg PO QPM 12/15/18 05/06/23 History release multivitamin (Daily Multi-Vitamin 1 tab PO DAILY 12/15/18 05/06/23 History tablet) calcium carbonate 600 mg-vitamin 1 tab PO DAILY 03/28/19 05/06/23 History D3 10 mcg (400 unit) chewable tablet (Calcium 600 with Vitamin D3) cholecalciferol (vitamin D3) 25 1,000 units PO DAILY 03/28/19 05/06/23 History mcg (1,000 unit) capsule lactobacillus combination no.9 4 4,000 mmu cells PO DAILY 03/28/19 05/06/23 History billion cell capsule (Adult 50 Plus Probiotic) omega-3 fatty acids 1,000 mg 1,000 mg PO DAILY 03/28/19 05/06/23 History capsule calcium polycarbophil 625 mg 625 mg PO DAILY 03/06/20 05/06/23 History tablet (Fiber-Tabs) ezetimibe 10 mg tablet (Zetia) 10 mg PO DAILY #90 tabs 04/21/23 05/06/23 Rx losartan 50 mg tablet 50 mg PO QAM #90 tabs 04/21/23 05/06/23 Rx metoprolol tartrate 25 mg tablet 12.5 mg (1/2 x 25 mg) PO BID #180 04/21/23 05/06/23 Rx tabs nitroglycerin 0.4 mg sublingual 0.4 mg sublingual DIRECTED PRN 04/21/23 05/06/23 Rx tablet Chest Pain #25 tabs Past Med/Surg History Medical History (Updated 05/06/23 @ 17:30 by Graham Ziegler MD) Dupuytren's contracture Hearing loss History of basal cell carcinoma Coronary artery disease Hypertension Hyperlipidemia Visit for review of DEXA scan 05/24/2015 RECOMMENDED REPEAT IN 5 YRS Surgical History (Updated 03/06/23 @ 12:43 by Santos Dunn DO) S/P tubal ligation S/P tonsillectomy S/P dilation and curettage S/P colonoscopy 02/2023 unclear f/u waiting on GI, previously q5yrs S/P appendectomy Family History Father Parents Abdominal aortic aneurysm Hypertension Family/Other No problems noted. Mother Colorectal cancer Parents Congenital kidney disease Denies family history of Ovarian cancer Prostate cancer Diabetes Myocardial infarction Breast cancer Lung cancer Stroke Social History Smoking Status: Never smoker Second Hand Exposure: No; Do You Dip or Chew Tobacco: No; Hx Alcohol Use: Yes Alcohol type: wine Alcohol Intake Frequency: 2-3 x/Week Alcohol Intake Frequency Comment: thursday supper Hx Substance Use: No Preferred Language: Macedonian Visual Impairment: Limited Hearing Ability: Use of Hearing Aid marital status: / Current Living Situation: Alone current occupational status: retired current occupation: NURSE How many Children do You have: 1 Feels Safe at Home: Yes Childhood Exposure to Second-Hand Smoke: Yes caffeine: Yes (2 cups a day ) Dental Care, Regularly: Yes Physical Activity Frequency: Daily Seatbelt Use: always Sunscreen Use: Yes Assistive Devices: Hearing Aid - Bilateral Review of Systems Review of Systems: The patient denies chest pain, palpitations, shortness of breath, dyspnea on exertion, cough, lower extremity swelling, sore throat, fevers, chills, sweats, vomiting, blood in urine or stool, dysuria, urinary frequency or urgency, lightheadedness, dizziness, headache, memory loss, loss of consciousness, rash, abnormal bruising or bleeding, imbalance, focal or generalized weakness, numbness or tingling in arms or legs, generalized arthralgias or myalgias, neck pain, or night sweats. The review of systems is otherwise negative other than for that already noted above, and at least 10 systems have been reviewed. Physical Exam Physical Exam: The patient is awake, alert and oriented 3, well developed and well nourished, normocephalic and atraumatic, lying in bed and in no acute distress. HEENT--PERRL, EOMI, mucous membranes and oropharynx mildly dry. Neck--supple. No JVD. No bruits. Thyroid normal, trachea midline, no adenopathy. Heart--normal S1 and S2. No murmurs, rubs or gallops. Lungs--clear bilaterally, no respiratory distress, no accessory muscle use. Abdomen--normal bowel sounds and soft. Tender left lower quadrant and suprapubic areas. Nondistended, no hernias or masses, no organomegaly. Extremities--no cyanosis or clubbing. No edema. Dermatologic--normal skin turgor, normal color, no abnormal lymph nodes, no rash. Neurologic--cranial nerves II through XII grossly intact. Rheumatologic--normal range of motion. Psychiatric--normal affect. Results & Data Results & Data Vital Signs (Past 12 Hours) Vital Signs Temp Pulse Pulse Resp BP BP Pulse Ox 05/06/23 16:00 72 18 139/75 92 05/06/23 15:30 73 19 95 05/06/23 15:23 94 05/06/23 15:23 75 18 142/83 H 05/06/23 15:00 95 05/06/23 15:00 64 151/78 H 93 05/06/23 14:31 56 L 05/06/23 14:30 60 19 152/76 H 97 05/06/23 14:20 58 L 16 162/71 H 97 05/06/23 13:48 36.5 C 66 20 168/71 H 95 O2 Del Method 05/06/23 16:00 05/06/23 15:30 05/06/23 15:23 05/06/23 15:23 05/06/23 15:00 05/06/23 15:00 05/06/23 14:31 05/06/23 14:30 05/06/23 14:20 Room Air 05/06/23 13:48 Laboratory Results Laboratory Results WBC 11.72 K/ul (4.8-10.8) H 05/06/23 14:29 RBC 3.91 M/uL (4.20-5.40) L 05/06/23 14:29 Hgb 11.4 g/dl (12.0-16.0) L 05/06/23 14:29 Hct 34.5 % (37.0-47.0) L 05/06/23 14:29 MCV 88.2 fL (80.0-100.0) 05/06/23 14:29 MCH 29.2 pg (25.0-34.0) 05/06/23 14:29 MCHC 33.0 g/dL (32.0-36.0) 05/06/23 14:29 RDW Std Deviation 42.7 fL (36.4-46.3) 05/06/23 14:29 RDW Coeff of Kvng 13.3 % (11.5-14.5) 05/06/23 14:29 Plt Count 391 K/uL (130-400) 05/06/23 14:29 MPV 9.6 fL (9.4-12.4) 05/06/23 14: Immature Gran % (Auto) 0.3 % 05/06/23 14: Neut % (Auto) 83.7 % 05/06/23 14:29 Lymph % (Auto) 10.2 % 05/06/23 14: [place] % (Auto) 4.8 % 05/06/23 14: Eos % (Auto) 0.6 % 05/06/23 14: Baso % (Auto) 0.4 % 05/06/23 14: Neut # (Auto) 9.81 K/uL (1.40-6.50) H 05/06/23 14: Lymph # (Auto) 1.19 K/uL (1.20-3.40) L 05/06/23 14: [place] # (Auto) 0.56 K/uL (0.11-0.59) 05/06/23 14: Eos # (Auto) 0.07 K/uL (0.00-0.50) 05/06/23 14: Baso # (Auto) 0.05 K/uL (0.00-0.20) 05/06/23 14: Immature Gran # (Auto) 0.04 K/uL (0.01-0.20) 05/06/23 14:29 Sodium 139 mmol/L (136-145) 05/06/23 14: Potassium 3.7 mmol/L (3.5-5.1) 05/06/23 14: Chloride 104 mmol/L (98-107) 05/06/23 14:29 Carbon Dioxide 26 mmol/L (21-32) 05/06/23 14:29 Anion Gap 9 (3-11) 05/06/23 14:29 BUN 15 mg/dl (6-23) 05/06/23 14: Creatinine 0.87 mg/dl (0.6-1.2) 05/06/23 14:29 Est Cr Clr Drug Dosing 51.8 ml/min 05/06/23 14:29 Est GFR ( Amer) 76.6 ml/min 05/06/23 14:29 Est GFR (Non-Af Amer) 66.1 ml/min 05/06/23 14:29 BUN/Creatinine Ratio 17.2 (10-20) 05/06/23 14:29 Glucose 151 mg/dl (70-99(Fasting)) H 05/06/23 14:29 Calcium 9.5 mg/dl (8.6-10.3) 05/06/23 14:29 Total Bilirubin 0.4 mg/dl (0.2-1.0) 05/06/23 14:29 AST 14 U/L (13-39) 05/06/23 14:29 ALT 12 U/L (7-52) 05/06/23 14:29 Alkaline Phosphatase 68 U/L (34-104) 05/06/23 14:29 Troponin I High Sens 4.0 pg/ml (0-14) 05/06/23 14:29 Total Protein 7.8 gm/dl (6.0-8.3) 05/06/23 14:29 Albumin 4.1 gm/dl (3.4-5.0) 05/06/23 14:29 Globulin 3.7 gm/dl (2.5-4.0) 05/06/23 14:29 Albumin/Globulin Ratio 1.1 (0.9-2) 05/06/23 14:29 Lipase 21 U/L (11-82) 05/06/23 14:29 Urine Color Yellow 05/06/23 Unknown Urine Appearance Turbid (Clear) A 05/06/23 Unknown Urine pH 7.0 (4.5-7.5) 05/06/23 Unknown Ur Specific [place] 1.024 (1.000-1.030) 05/06/23 Unknown Urine Protein Negative (Negative) 05/06/23 Unknown Urine Glucose (UA) Negative (Negative) 05/06/23 Unknown Urine Ketones Negative (Negative) 05/06/23 Unknown Urine Blood Negative (Negative) 05/06/23 Unknown Urine Nitrite Negative (Negative) 05/06/23 Unknown Urine Bilirubin Negative (Negative) 05/06/23 Unknown Urine Urobilinogen Negative (Negative) 05/06/23 Unknown Ur Leukocyte Esterase Negative (Negative) 05/06/23 Unknown Urine WBC (Auto) 1-5 /hpf (0-5) 05/06/23 Unknown Urine RBC (Auto) 0-4 /hpf (0-4) 05/06/23 Unknown U Hyaline Cast (Auto) 1-5 /lpf (0-5) 05/06/23 Unknown U Epithel Cells (Auto) >30 /lpf (0-5) H 05/06/23 Unknown Urine Bacteria (Auto) Negative (Negative) 05/06/23 Unknown Impressions Abdomen/Pelvis CT 05/06/23 13:[address] WITH IV CONTRAST CT DOSE: 897.02 mGy.cm HISTORY: Acute lower abdominal pain Lower abdominal pain TECHNIQUE: Multiaxial CT images of the abdomen and pelvis were performed following the IV administration of 92 cc of Optiray, A dose lowering technique was utilized adhering to the principles of ALARA. COMPARISON STUDY: None. FINDINGS: Cardiomegaly with coronary artery calcifications. Mild subsegmental bibasilar atelectasis. 4 mm indeterminate low suspicion solid nodule of the basal left lower lobe on image 27. No pneumoperitoneum identified. Unremarkable spleen and left adrenal gland. Indeterminate soft tissue attenuating 2 cm right adrenal gland lesion. Cholelithiasis without CT evidence of acute cholecystitis. The common bile duct is upper limits of normal at 7 mm. Mild dilation of the pancreatic duct at the level of the pancreatic head measuring up to 6 mm. Possible punctate stone within the duodenal ampulla on image 129. Minimal intrahepatic biliary ductal prominence. Patent portal vein. Exophytic 2.27 m cyst of the inferior pole left kidney. 3 mm nonobstructing calculus of the superior pole right kidney with a punctate calculus of the inferior pole. Mild left-sided hydronephrosis with 4 mm calculus of the distal left ureter on image 265 position a few centimeters up stream to the ureterovesicular junction. Atherosclerosis of the aorta. Subcentimeter retroperitoneal lymph nodes may be reactive. Heterogeneous uterus with scattered calcifications. Mild urinary bladder wall thickening. Small hiatal hernia with mild distal esophageal wall thickening. Duodenal diverticulum. Colonic diverticulosis. There is moderate wall thickening within the mid sigmoid colon on image 245 series 3 resulting in associated luminal narrowing. There is a large diverticulum of the proximal sigmoid measuring up to 3.3 cm on image 263. There are adjacent inflammatory changes in the sigmoid mesocolon with trace free pelvic fluid. Lymph nodes within the sigmoid mesocolon measuring up to 8 mm. Subcentimeter perirectal lymph nodes. Moderate colonic fecal retention. Appendectomy. Tiny fat filled umbilical hernia. No acute fracture. IMPRESSION: 1. Colonic diverticulosis with moderate wall thickening within the sigmoid and rectum. Additionally, there is pericolonic and perirectal inflammatory stranding with trace free fluid. Findings are favored to represent acute on chronic diverticulitis. Correlation with follow-up colonoscopy recommended in order to exclude an underlying mucosal neoplasm. 2. Mild perirectal and sigmoid mesocolon lymphadenopathy. 3. No pneumoperitoneum or drainable fluid collection. 4. Mild left-sided hydronephrosis secondary to an obstructing 4 mm calculus of the distal left ureter. 5. Cholelithiasis is noted with mild common bile and pancreatic ductal dilation. Possible punctate calculus within the duodenal ampulla. Correlate with laboratory analysis and GI consultation. 6. Right nephrolithiasis. ACT 112: Negative or not required by law. The above report was generated using voice recognition software. It may contain grammatical, syntax or spelling errors. Electronically signed by: Ronnell Ruiz M.D. 05/06/2023 3:54 PM Code Status & VTE Plan Code Status Full code VTE Prophylaxis Plan VTE Prophylaxis will be ordered: Yes PG Care Time/CCT Total # of Minutes Spent Total Time Spent with Patient: Total time spent is greater than 50% in coordination of care (as documented) at patient's floor/unit and/or counseling patient: Coding Level of Care Code 25358 INT INP/OBS CARE 3/75MIN Diagnoses Syncope, near R55 Hydronephrosis, left N13.30 Calculus of left ureter N20.1 Diverticulitis K57.92 Coronary artery disease I25.10 Hypertension I10 Hyperlipidemia E78.5 Statin myopathy G72.0; T46.6X5A Gallstones K80.20
[2023-05-06] MEDS: NSS + 20MEQ KCL 20 MEQ/1,000 ML BAG IV SCH (17:46)
[2023-05-06] MEDS ORDERED: ONDANSETRON INJ 2 MG/ML 2 ML VIAL IV PRN (20:12)
[2023-05-06] MEDS ORDERED: ACETAMINOPHEN 1000 MG/100 ML IV IV PRN (20:12)
[2023-05-06] MEDS: METOPROLOL TARTRATE 25 MG TAB PO SCH (21:40)
[2023-05-07] MEDS: metroNIDAZOLE 500 MG/100 ML BAG IV SCH ×3 (00:39→17:14)
[2023-05-07] MEDS: NSS + 20MEQ KCL 20 MEQ/1,000 ML BAG IV SCH ×2 (04:13→13:50)
[2023-05-07] MEDS: CIPROFLOXACIN / D5W 400 MG/200 ML BAG IV SCH ×2 (05:02→18:08)
[2023-05-07 07:05] LABS: Basophils # (auto) 0.05 K/uL (0.00-0.20); Basophils % (auto) 0.4 %; Eosinophils # (auto) 0.02 K/uL (0.00-0.50); Eosinophils % (auto) 0.2 %; Hemoglobin 9.6 g/dl (12.0-16.0); Immature Granulocytes # (auto) 0.07 K/uL (0.01-0.20); Immature Granulocytes % (auto) 0.6 %; Lymphocytes # (auto) 0.82 K/uL (1.20-3.40); Lymphocytes % (auto) 6.7 %; Mean Corpuscular Hemoglobin 29.4 pg (25.0-34.0); Mean Corpuscular Hgb Conc 33.1 g/dL (32.0-36.0); Mean Corpuscular Volume 88.7 fL (80.0-100.0); Monocytes # (auto) 0.88 K/uL (0.11-0.59); Monocytes % (auto) 7.2 %; Neutrophils # (auto) 10.41 K/uL (1.40-6.50); Neutrophils % (auto) 84.9 %; Platelet Count 326 K/uL (130-400); RDW Coefficient of Variation 13.6 % (11.5-14.5); RDW Standard Deviation 44.2 fL (36.4-46.3); Red Blood Count 3.27 M/uL (4.20-5.40); White Blood Count 12.25 K/ul (4.8-10.8)
--- NOTE | 2023-05-07 07:30 | Hospitalist Progress Note ---
Date of Service May 07, 2023 Assessment & Plan (1) Diverticulitis: Plan: Acute on chronic diverticulitis/lymphadenopathy- Patient has severe reaction to penicillins and cephalosporins Cipro 400 mg IV every 12 hours, and Flagyl 500 mg IV every 8 hours advance to clear diet and eventually low fiber Consult gastroenterology, as diverticulitis noted to be quite severe, will need outpt follow up NSS plus KCl 20 mill equivalents at 100 mL/h (2) Calculus of left ureter: Plan: 4 mm distal left ureteral calculus/mild left hydronephrosis- Follow urine culture and sensitivity Patient has not had any urinary symptoms Antibiotics as above Consult urology (3) Syncope, near: Plan: vagal response due to abdominal pain , now controlled (4) Coronary artery disease: (5) Gallstones: Plan: CBD dialation and stone seen in the ampulla in small bowel no clinical symptoms normal LFT (6) Hypertension: Plan: also CAD, continues on metoprolol pre admission also taking aspirin, losartan, and ezetimibe(history of statin myopathy) Plan heparin for dvt prevention Admission and Anticipated Discharge Date Admission Date: May 06, 2023 Subjective significant improvement of pain flatus, no stool tolerating po so far Physical Exam Physical Exam: abd is soft and non tender, no rebound no guarding Results & Data Results & Data Vital Signs (Past 12 Hours) Vital Signs Temp Pulse Pulse Resp BP Pulse Ox O2 Del Method 05/06/23 21:50 Room Air 05/06/23 21:50 98.2 F 74 16 146/67 H 96 Room Air 05/06/23 20:40 72 16 136/63 95 Room Air Laboratory Results reviewed cbc revieweed chemistry PG Care Time/CCT Total # of Minutes Spent Total Time Spent with Patient: Total time spent is greater than 50% in coordination of care (as documented) at patient's floor/unit and/or counseling patient: Coding Level of Care Code 53623 SUB INP/OBS CARE 2/35MIN Diagnoses Diverticulitis K57.92 Calculus of left ureter N20.1 Syncope, near R55 Coronary artery disease I25.10 Gallstones K80.20 Hypertension I10
[2023-05-07 07:31] LABS: Albumin Globulin Ratio 1.3 (0.9-2); Albumin Level 3.4 gm/dl (3.4-5.0); BUN Creatinine Ratio 14.1 (10-20); Bilirubin,Total 0.4 mg/dl (0.2-1.0); Calcium 8.4 mg/dl (8.6-10.3); Est GFR (African American) 87.4 ml/min; Est GFR (Non-African American) 75.4 ml/min; Globulin 2.7 gm/dl (2.5-4.0); Magnesium 2.1 mg/dl (1.7-2.4); Total Protein 6.1 gm/dl (6.0-8.3)
[2023-05-07] MEDS: METOPROLOL TARTRATE 25 MG TAB PO SCH ×2 (08:21→19:39)
--- NOTE | 2023-05-07 09:46 | Urology Consultation ---
<Statement entered by Graham Laureano MD - 05/08/23 06:27> I have discussed Ms. Moody's case with SOPHIA Nguyen and agree with the above documentation. Will plan for a trial of spontaneous passage of her ureteral stone. -Graham Laureano MD. Date of Consultation May 07, 2023 Assessment & Plan (1) Calculus of left ureter: (2) Hydronephrosis, left: Plan 72yo/F admitted with lower abdominal pain found to have acute diverticulitis and an obstructing 4mm distal left ureteral stone on CT imaging. -Afebrile and hemodynamically stable. -Labs reviewed-WBC 12.25, creatinine normal. -Urinalysis without signs of infection or blood. -We reviewed her CT findings showing an obstructing 4 mm distal left ureteral stone. We discussed options for acute stone management with cystoscopy and stent placement. Ureteral stents were discussed as well as postoperative issues and pain management. She is aware a second procedure may be needed for stone treatment. We also discussed trial of passage. Discussed stone passage rates given size and location. Risks and benefits of each were discussed. All questions were answered. -No plan for urological intervention at this time. -She is stable without flank pain or urinary symptoms and prefers trial of passage while she is recovering from other acute issues/diverticulitis. Risks/benefits discussed. -Continue supportive care, antibiotics, and management per primary service. -Strain all urine. -Urology will continue to follow. If she develops acute changes or flank pain, we can revisit ureteral stent placement. History of Present Illness Attending Physician: Alex Roman MD History of Present Illness 72-year-old female with a past medical history including CAD, hypertension, hyperlipidemia, and diverticulitis who presented to the ED on 05/06/2023 with worsening lower abdominal pain which caused her to nearly pass out due to intensity. On arrival she was afebrile and hemodynamically stable. Labs showing a leukocytosis of 11.72 and creatinine 0.87. Urinalysis with >30 epithelial cells but otherwise negative. CT abdomen pelvis obtained and notable for acute on chronic diverticulitis, mild perirectal and sigmoid lymphadenopathy, mild left-sided hydronephrosis secondary to an obstructing 4 mm distal left ureteral stone. Patient was admitted to medicine service for continued care and management. CT abdomen pelvis- 1. Colonic diverticulosis with moderate wall thickening within the sigmoid and rectum. Additionally, there is pericolonic and perirectal inflammatory stranding with trace free fluid. Findings are favored to represent acute on chronic diverticulitis. Correlation with follow-up colonoscopy recommended in order to exclude an underlying mucosal neoplasm. 2. Mild perirectal and sigmoid mesocolon lymphadenopathy. 3. No pneumoperitoneum or drainable fluid collection. 4. Mild left-sided hydronephrosis secondary to an obstructing 4 mm calculus of the distal left ureter. 5. Cholelithiasis is noted with mild common bile and pancreatic ductal dilation. Possible punctate calculus within the duodenal ampulla. Correlate with laboratory analysis and GI consultation. 6. Right nephrolithiasis. Patient examined at bedside this AM. Awake, resting in bed on arrival. No acute distress. She reports a history of kidney stones. Does not currently follow with a urologist. Currently denies flank or back pain. Denies hematuria or dysuria. Denies additional urinary symptoms or issues. Denies fevers, chills, nausea, vomiting at present. Allergies Allergy/AdvReac Type Severity Reaction Status Date / Time Cephalosporins Allergy Severe Anaphylaxis Verified 05/06/23 17:02 Penicillins Allergy Severe Anaphylaxis Verified 05/06/23 17:02 bee venom protein (honey bee) Allergy Intermediate Arm Verified 05/06/23 17:02 swelling Qfuddvw-LXQ-UqI Reductase AdvReac Intermediate Abnormal Verified 05/06/23 17:02 Inhibitor labs [Boqdtpm-Kcg-Uxq Reductase Inhibitor] Home Medications Medication Instructions Recorded Confirmed Type aspirin 81 mg tablet,delayed 81 mg PO QPM 12/15/18 05/06/23 History release multivitamin (Daily Multi-Vitamin 1 tab PO DAILY 12/15/18 05/06/23 History tablet) calcium carbonate 600 mg-vitamin 1 tab PO DAILY 03/28/19 05/06/23 History D3 10 mcg (400 unit) chewable tablet (Calcium 600 with Vitamin D3) cholecalciferol (vitamin D3) 25 1,000 units PO DAILY 03/28/19 05/06/23 History mcg (1,000 unit) capsule lactobacillus combination no.9 4 4,000 mmu cells PO DAILY 03/28/19 05/06/23 History billion cell capsule (Adult 50 Plus Probiotic) omega-3 fatty acids 1,000 mg 1,000 mg PO DAILY 03/28/19 05/06/23 History capsule calcium polycarbophil 625 mg 625 mg PO DAILY 03/06/20 05/06/23 History tablet (Fiber-Tabs) ezetimibe 10 mg tablet (Zetia) 10 mg PO DAILY #90 tabs 04/21/23 05/06/23 Rx losartan 50 mg tablet 50 mg PO QAM #90 tabs 04/21/23 05/06/23 Rx metoprolol tartrate 25 mg tablet 12.5 mg (1/2 x 25 mg) PO BID #180 04/21/23 05/06/23 Rx tabs nitroglycerin 0.4 mg sublingual 0.4 mg sublingual DIRECTED PRN 04/21/23 05/06/23 Rx tablet Chest Pain #25 tabs Patient History Medical History Dupuytren's contracture Hearing loss History of basal cell carcinoma Coronary artery disease Hypertension Hyperlipidemia Visit for review of DEXA scan 05/24/2015 RECOMMENDED REPEAT IN 5 YRS Surgical History S/P tubal ligation S/P tonsillectomy S/P dilation and curettage S/P colonoscopy 02/2023 unclear f/u waiting on GI, previously q5yrs S/P appendectomy Family History Father , AGE 75 Parents Abdominal aortic aneurysm Hypertension Family/Other No problems noted. Mother , AGE 63 Colorectal cancer Parents Congenital kidney disease Denies family history of Ovarian cancer Prostate cancer Diabetes Myocardial infarction Breast cancer Lung cancer Stroke Social History Smoking Status: Never smoker Second Hand Exposure: No; Do You Dip or Chew Tobacco: No; Hx Alcohol Use: Yes Alcohol type: wine Alcohol Intake Frequency: 2-3 x/Week Alcohol Intake Frequency Comment: thursday supper Hx Substance Use: No Preferred Language: Bur[place]ian Communication Ability: Effective Visual Impairment: Limited Hearing Ability: Use of Hearing Aid Sweat Box Attendant Required: No Beliefs That Will Affect Care: [employer] Beliefs: [employer]ab[employer]ist marital status: / Current Living Situation: Alone current occupational status: retired current occupation: NURSE How many Children do You have: 1 Feels Safe at Home: Yes Safety Concerns: Feels Safe At This Time Childhood Exposure to Second-Hand Smoke: Yes caffeine: Yes (2 cups a day ) Dental Care, Regularly: Yes Physical Activity Frequency: Daily Seatbelt Use: always Sunscreen Use: Yes Assistive Devices: None Review of Systems Review of Systems: All systems reviewed & are unremarkable except as noted in HPI & below Physical Exam Constitutional: well developed and well nourished; no acute distress Respiratory: normal respiratory effort; no respiratory distress and no labored breathing Musculoskeletal: Head/Neck/Chest: normocephalic Skin: No visible rashes or lesions to exposed skin areas Neurologic: moves all extremities and awake Psychiatric: A+Ox3, euthymic affect Results & Data Vital Signs (Past 12 Hours) Vital Signs Temp Pulse Resp BP Pulse Ox O2 Del Method 05/07/23 08:00 37.8 C H 71 16 131/65 94 Room Air 05/06/23 21:50 Room Air 05/06/23 21:50 36.8 C 74 16 146/67 H 96 Room Air PG Care Time/CCT Total # of Minutes Spent Total Time Spent with Patient: Total time spent is greater than 50% in coordination of care (as documented) at patient's floor/unit and/or counseling patient: Coding Level of Care Code 95242 INT INP/OBS CARE 2/55MIN Diagnoses Calculus of left ureter N20.1 Hydronephrosis, left N13.30
[2023-05-07] MEDS ORDERED: oxyCODONE HCL IR 5 MG TAB (IMMEDIATE RELEASE) PO PRN (10:09)
[2023-05-07] MEDS: HEPARIN SOD 5,000 UNIT/0.5 ML VIAL SQ SCH ×2 (10:15→19:40)
[2023-05-07] MEDS: ACETAMINOPHEN 500 MG TAB PO PRN ×2 (10:19→17:09)
--- NOTE | 2023-05-07 10:22 | Gastrointestinal Consultation ---
Date of Consultation May 07, 2023 Assessment & Plan (1) Diverticulitis: Pt is a 72 yo female w abd pain symptoms, found to have L sided colon diverticulitis on CT scan. She reports that this is her first diverticulitis episode. Just had colonoscopy 02/2023 which showed severe diverticulosis and int hemorrhoids. - Cipro and Flagyl IV antibx, can convert to PO to complete 10 days course upon DC - Diet as tolerated - Fiber daily after 6 week's time - Defer repeat colonoscopy since just done 2 months ago - Regarding cholelithiasis, CBD + panc duct dilation, ? duodenal ampulla stone: LFTs normal w/o RUQ abd pain. Obtain MRCP Supervising Physician Co-Signing Physician Notes I personally saw and evaluated the patient with SOPHIA Chua on 05/07/2023 and agree with her findings and plan of care. Abdomen with mild tenderness in the lower abdomen but soft and no guarding. 72 y/o F admitted with LLQ abdominal pain found to have acute diverticulitis on imaging. She had just had a colonoscopy 2 months ago found to have severe sigmoid diverticulosis and hemorrhoids but otherwise normal. Currently on Cipro and Flagyl. She states she is feeling much better today with tylenol. Tolerating a liquid diet. Would continue abx and on discharge convert to PO cipro and flagyl to complete a 10 day course. Typically a follow up colonoscopy is recommended in 6-8 weeks to rule out any malignancy however this is not needed in her case as she just had a colonoscopy 2 months ago. She was incidentally found to have CBD and pancreatic duct dilation on CT scan with ? calculcus in the ampulla. Her LFTs are normal. Would recommend an inpatient MRCP for further evaluation. Advance diet as tolerated. Cristy Mix, Gastroenterology and Hepatology History of Present Illness Reason for Consultation: Diverticulitis Requesting Physician: Dr. Alex Roman Attending Physician: Dr. Cristy Mix History of Present Illness Patient is a 72 years old female with past medical history as of CAD, hypertension, hyperlipidemia, statin induced transaminitis who presented to the ED with complaining of abdominal pain over the lower quadrant areas for the last 1 to 2 days. Patient reports that lower quadrant pain seems to be squeezing and high intensity. Reported syncopal episodes due to the pain. Denies any fevers or chills though noted to be mildly febrile here. Denies any chest pain, shortness of breath. No nausea or vomiting. She was found to have mild leukocytosis, anemia, no signs of elevated LFTs or lipase. CT abdomen and pelvis with contrast showed signs of colonic diverticulosis with moderate wall thickening within the sigmoid and rectum, pericolonic and perirectal inflammatory stranding with trace free fluid consistent with acute on chronic diverticulitis. Incidentally also noted to have cholelithiasis within the common bile duct with pancreatic ductal dilatation, possible unchanged calculus within the duodenal ampulla. Patient reports that she has never had diverticulitis before. She has had colonoscopy February 2023 which showed signs of diverticulosis in the sigmoid colon and hemorrhoids. He takes fiber daily, denies any constipation or changes in bowel habits. Denies any rectal bleeding. Did report that she had more fatty foods during [place]. Allergies Allergy/AdvReac Type Severity Reaction Status Date / Time Cephalosporins Allergy Severe Anaphylaxis Verified 05/06/23 17:02 Penicillins Allergy Severe Anaphylaxis Verified 05/06/23 17:02 bee venom protein (honey bee) Allergy Intermediate Arm Verified 05/06/23 17:02 swelling Cdplvxm-NDW-QgC Reductase AdvReac Intermediate Abnormal Verified 05/06/23 17:02 Inhibitor labs [Gvvuiqy-Qfp-Wtj Reductase Inhibitor] Home Medications Medication Instructions Recorded Confirmed Type aspirin 81 mg tablet,delayed 81 mg PO QPM 12/15/18 05/06/23 History release multivitamin (Daily Multi-Vitamin 1 tab PO DAILY 12/15/18 05/06/23 History tablet) calcium carbonate 600 mg-vitamin 1 tab PO DAILY 03/28/19 05/06/23 History D3 10 mcg (400 unit) chewable tablet (Calcium 600 with Vitamin D3) cholecalciferol (vitamin D3) 25 1,000 units PO DAILY 03/28/19 05/06/23 History mcg (1,000 unit) capsule lactobacillus combination no.9 4 4,000 mmu cells PO DAILY 03/28/19 05/06/23 History billion cell capsule (Adult 50 Plus Probiotic) omega-3 fatty acids 1,000 mg 1,000 mg PO DAILY 03/28/19 05/06/23 History capsule calcium polycarbophil 625 mg 625 mg PO DAILY 03/06/20 05/06/23 History tablet (Fiber-Tabs) ezetimibe 10 mg tablet (Zetia) 10 mg PO DAILY #90 tabs 04/21/23 05/06/23 Rx losartan 50 mg tablet 50 mg PO QAM #90 tabs 04/21/23 05/06/23 Rx metoprolol tartrate 25 mg tablet 12.5 mg (1/2 x 25 mg) PO BID #180 04/21/23 05/06/23 Rx tabs nitroglycerin 0.4 mg sublingual 0.4 mg sublingual DIRECTED PRN 04/21/23 05/06/23 Rx tablet Chest Pain #25 tabs Patient History Medical History Dupuytren's contracture Hearing loss History of basal cell carcinoma Coronary artery disease Hypertension Hyperlipidemia Visit for review of DEXA scan 05/24/2015 RECOMMENDED REPEAT IN 5 YRS Surgical History S/P tubal ligation S/P tonsillectomy S/P dilation and curettage S/P colonoscopy 02/2023 unclear f/u waiting on GI, previously q5yrs S/P appendectomy Family History Father , AGE 75 Parents Abdominal aortic aneurysm Hypertension Family/Other No problems noted. Mother , AGE 63 Colorectal cancer Parents Congenital kidney disease Denies family history of Ovarian cancer Prostate cancer Diabetes Myocardial infarction Breast cancer Lung cancer Stroke Social History Smoking Status: Never smoker Second Hand Exposure: No; Do You Dip or Chew Tobacco: No; Hx Alcohol Use: Yes Alcohol type: wine Alcohol Intake Frequency: 2-3 x/Week Alcohol Intake Frequency Comment: thursday supper Hx Substance Use: No Preferred Language: Kazakh Communication Ability: Effective Visual Impairment: Limited Hearing Ability: Use of Hearing Aid Rn Cardiac Rehab Required: No Beliefs That Will Affect Care: Nondenominational Nondenominational Beliefs: Restoration marital status: / Current Living Situation: Alone current occupational status: retired current occupation: NURSE How many Children do You have: 1 Feels Safe at Home: Yes Safety Concerns: Feels Safe At This Time Childhood Exposure to Second-Hand Smoke: Yes caffeine: Yes (2 cups a day ) Dental Care, Regularly: Yes Physical Activity Frequency: Daily Seatbelt Use: always Sunscreen Use: Yes Assistive Devices: None Review of Systems Review of Systems: All systems reviewed & are unremarkable except as noted in HPI & below Physical Exam Constitutional: WD/WN, vitals as above well groomed, cooperative and comfortable Eyes: PERRL, conjunctivae normal, anicteric sclerae ENMT: external ear and nose normal, oropharynx normal Respiratory: normal respiratory effort, lungs clear to auscultation Cardiovascular: RRR, no murmur, no edema Gastrointestinal (Abdomen): TTP across lower quadrants Skin: no rashes, warm and dry no jaundice Neurologic: Motor/Sensory: no asterixis Psychiatric: A+Ox3, euthymic affect Lymphatic: no lymphedema Results & Data Vital Signs (Past 12 Hours) Vital Signs Temp Pulse Resp BP Pulse Ox O2 Del Method 05/07/23 08:00 37.8 C H 71 16 131/65 94 Room Air
--- NOTE | 2023-05-07 17:22 | Magnetic Resonance Report ---
MR MRCP HISTORY: 72 years-old Female cbd and panc ducts dilation; ? duodenal stone acute generalized abdomin al pain COMPARISON: CT abdomen and pelvis 05/06/2023 TECHNIQUE: MRCP obtained without the use of IV contrast according to institutional protocol. FINDINGS: The study is mildly motion degraded. Cardiomegaly. Distended gallbladder with cholelithiasis. There i s a small amount of pericholecystic fluid without definite focal bladder wall thickening. The common bile duct measures near the limits of normal at 6 mm. Duct is mildly dilated at 4 mm. No choledocholithiasis or biliary strictures identified. No evidence of pancreatic divisum. No evidence of acute pancreatitis. There is persistent left-sided hydronephrosis with asymmetric left perinephric stranding. 1.9 cm cyst of the inferior pole right kidney. Mild dilation of the right renal collecting system. Normal calibe r of the aorta. Subcentimeter retroperitoneal lymph nodes are again seen. No bowel obstruction. Colon ic diverticulosis. No acute fracture. IMPRESSION: 1. Motion degraded exam. 2. Distended gallbladder with cholelithiasis and pericholecystic fluid. No definite gallbladder wall thickening. Findings could be correlated with nuclear medicine hepatobiliary scan in order to exclude acute cholecystitis. 3. Borderline dilation of the common bile and pancreatic ducts. No definite choledocholithiasis ident ified on this exam. 4. Persistent left-sided hydronephrosis. Please refer to the CT abdomen and pelvis study dated 2022 for additional findings. ACT 112: Negative or not required by law. The above report was generated using voice recognition software. It may contain grammatical, syntax o r spelling errors. Electronically signed by: Ronnell Ruiz M.D. 05/07/2023 5:20 PM
[2023-05-08] MEDS: ACETAMINOPHEN 500 MG TAB PO PRN (00:57)
[2023-05-08] MEDS: metroNIDAZOLE 500 MG/100 ML BAG IV SCH ×2 (00:57→08:05)
[2023-05-08] MEDS: CIPROFLOXACIN / D5W 400 MG/200 ML BAG IV SCH (05:33)
[2023-05-08] MEDS: HEPARIN SOD 5,000 UNIT/0.5 ML VIAL SQ SCH (08:02)
[2023-05-08] MEDS: METOPROLOL TARTRATE 25 MG TAB PO SCH (08:04)
--- NOTE | 2023-05-08 08:19 | Hospitalist Progress Note ---
Date of Service May 08, 2023 Assessment & Plan (1) Diverticulitis: Plan: Acute on chronic diverticulitis/lymphadenopathy- Patient has severe reaction to penicillins and cephalosporins Cipro 400 mg IV every 12 hours, and Flagyl 500 mg IV every 8 hours advance to clear diet and eventually low fiber Consult gastroenterology, as diverticulitis noted to be quite severe, will need outpt follow up NSS plus KCl 20 mill equivalents at 100 mL/h (2) Calculus of left ureter: Plan: 4 mm distal left ureteral calculus/mild left hydronephrosis- Follow urine culture and sensitivity Patient has not had any urinary symptoms Antibiotics as above Consult urology. dicussed procedure if pain, infection or renal conprimise (3) Gallstones: Plan: CBD dilation and stone seen in the ampulla in small bowel Gastroenterology ordered MRCP-discovery of Chollithiasis with pericholecystic fluid cannot rule out acute cholecystitis recommending HIDA scan which is ordered no clinical symptoms Remains on Cipro Flagyl for diverticulitis which should also cover cholecystitis normal LFTs (4) Syncope, near: Plan: vagal response due to abdominal pain , now controlled (5) Coronary artery disease: (6) Hypertension: Plan: also CAD, continues on metoprolol pre admission also taking aspirin, losartan, and ezetimibe(history of statin myopathy) Plan heparin for dvt prevention Admission and Anticipated Discharge Date Admission Date: May 06, 2023 Results & Data Results & Data Vital Signs (Past 12 Hours) Vital Signs Temp Pulse Resp BP Pulse Ox O2 Del Method 05/08/23 08:04 65 18 147/76 H 94 Room Air 05/08/23 06:48 99.0 F 66 16 145/79 H 92 Room Air PG Care Time/CCT Total # of Minutes Spent Total Time Spent with Patient: Total time spent is greater than 50% in coordination of care (as documented) at patient's floor/unit and/or counseling patient: Coding Diagnoses Diverticulitis K57.92 Calculus of left ureter N20.1 Gallstones K80.20 Syncope, near R55 Coronary artery disease I25.10 Hypertension I10
[2023-05-08 08:45] LABS: Basophils # (auto) 0.05 K/uL (0.00-0.20); Basophils % (auto) 0.4 %; Eosinophils # (auto) 0.14 K/uL (0.00-0.50); Eosinophils % (auto) 1.2 %; Hemoglobin 9.8 g/dl (12.0-16.0); Immature Granulocytes # (auto) 0.05 K/uL (0.01-0.20); Immature Granulocytes % (auto) 0.4 %; Lymphocytes # (auto) 0.91 K/uL (1.20-3.40); Lymphocytes % (auto) 7.9 %; Mean Corpuscular Hemoglobin 28.8 pg (25.0-34.0); Mean Corpuscular Hgb Conc 32.7 g/dL (32.0-36.0); Mean Corpuscular Volume 88.2 fL (80.0-100.0); Mean Platelet Volume 9.8 fL (9.4-12.4); Monocytes # (auto) 0.78 K/uL (0.11-0.59); Monocytes % (auto) 6.8 %; Neutrophils # (auto) 9.54 K/uL (1.40-6.50); Neutrophils % (auto) 83.3 %; Platelet Count 317 K/uL (130-400); RDW Coefficient of Variation 13.5 % (11.5-14.5); RDW Standard Deviation 43.8 fL (36.4-46.3); White Blood Count 11.47 K/ul (4.8-10.8)
[2023-05-08 08:59] LABS: Albumin Globulin Ratio 1.1 (0.9-2); Albumin Level 3.4 gm/dl (3.4-5.0); BUN Creatinine Ratio 12.2 (10-20); Bilirubin,Total 0.5 mg/dl (0.2-1.0); Calcium 8.6 mg/dl (8.6-10.3); Creatinine Clr Calc Pharmacy 59.9 ml/min; Est GFR (African American) 82.3 ml/min; Magnesium 2.2 mg/dl (1.7-2.4); Potassium 3.7 mmol/L (3.5-5.1); Total Protein 6.4 gm/dl (6.0-8.3)
--- NOTE | 2023-05-08 10:41 | Gastroenterology Progress Note ---
Date of Service May 08, 2023 Assessment & Plan (1) Diverticulitis: Plan: Pt is a 72 yo female w abd pain symptoms, found to have L sided colon diverticulitis on CT scan. She reports that this is her first diverticulitis episode. Just had colonoscopy 02/2023 which showed severe diverticulosis and int hemorrhoids. - Cipro and Flagyl IV antibx, can convert to PO to complete 10 days course upon DC - Diet as tolerated - Fiber daily after 6 week's time - Defer repeat colonoscopy since just done 2 months ago - Regarding cholelithiasis, CBD + panc duct dilation, ? duodenal ampulla stone: LFTs normal w/o RUQ abd pain. MRCP completed 05/07 showed borderline dilation of CBD and pancreatic ducts. No choledocholithiasis. Pt does have distended gallbladder w cholelithiasis and pericholecystic fluid. She is going to undergo HIDA scan today to r/o cholecystitis. If HIDA shows cholecystitis, rec Surgery eval - Otherwise no new GI recs, pls recall prn Admission and Anticipated Discharge Date Admission Date: May 06, 2023 Supervising Physician Co-Signing Physician Notes I personally saw and evaluated the patient with SOPHIA Chua on 05/08/2023 and agree with her findings and plan of care. Abdomen with mild tenderness in the lower abdomen but soft and no guarding. 72 y/o F admitted with LLQ abdominal pain found to have acute diverticulitis on imaging. She had just had a colonoscopy 2 months ago found to have severe sigmoid diverticulosis and hemorrhoids but otherwise normal. Currently on Cipro and Flagyl. Tolerating a diet. Would continue abx and on discharge convert to PO cipro and flagyl to complete a 10 day course. Typically a follow up colonoscopy is recommended in 6-8 weeks to rule out any malignancy however this is not needed in her case as she just had a colonoscopy 2 months ago. She was incidentally found to have CBD and pancreatic duct dilation on CT scan with ? calculcus in the ampulla. Her LFTs are normal. MRCP without any CBD stone. There was ? cholecystitis for which primary team has ordered a HIDA scan though patient has no RUQ abdominal pain on exam. Ok to d ischarge home from GI standpoint. Cristy Mix, Gastroenterology and Hepatology Subjective Pt reports feeling better, abd not painful just "sore". No fever, chills, n/v. No BMs yet Review of Systems Review of Systems: All systems reviewed & are unremarkable except as noted in HPI & below Physical Exam Constitutional: WD/WN, vitals as above well groomed, cooperative and comfortable Eyes: PERRL, conjunctivae normal, anicteric sclerae ENMT: external ear and nose normal, oropharynx normal Respiratory: normal respiratory effort, lungs clear to auscultation Cardiovascular: RRR, no murmur, no edema Gastrointestinal (Abdomen): normal bowel sounds, soft, nontender, no hepatosplenomegaly (mild TTP RUQ, bilateral lower quadrants) Skin: no rashes, warm and dry no jaundice Psychiatric: A+Ox3, euthymic affect Lymphatic: no lymphedema Results & Data Vital Signs (Past 12 Hours) Vital Signs Temp Pulse Resp BP Pulse Ox O2 Del Method 05/08/23 08:04 65 18 147/76 H 94 Room Air 05/08/23 06:48 37.2 C 66 16 145/79 H 92 Room Air
--- NOTE | 2023-05-08 14:00 | Urology Progress Note ---
Date of Service May 08, 2023 Assessment & Plan (1) Calculus of left ureter: (2) Hydronephrosis, left: Plan 72yo/F admitted with lower abdominal pain found to have acute diverticulitis and an obstructing 4mm distal left ureteral stone on CT imaging. -Overall feeling well. -No flank pain or urinary symptoms. -Remains afebrile and hemodynamically stable. -Labs reviewed-WBC 11.47, creatinine normal. -Urinalysis without signs of infection or blood. -No plan for urological intervention at this time. -Patient prefers trial of passage while she is recovering from other acute issues/diverticulitis. Risks/benefits discussed. -Continue supportive care, antibiotics, and management per primary service. -Strain all urine. -Will arrange outpatient follow-up with our service. -Urology will sign off. Please contact us with any further questions, concerns, or changes in patient's status. Admission and Anticipated Discharge Date Admission Date: May 06, 2023 Subjective Patient examined at bedside this AM. Awake, resting in bed on arrival. No acute distress. Overall feeling much better. Denies fevers, chills, nausea, vomiting. Voiding without issue. Denies hematuria or dysuria. Denies flank pain. Review of Systems Constitutional: as per Subjective / HPI Gastrointestinal: as per Subjective / HPI Genitourinary: as per Subjective / HPI Physical Exam Constitutional: well developed and well nourished; no acute distress Respiratory: normal respiratory effort; no respiratory distress and no labored breathing Neurologic: moves all extremities and awake Psychiatric: A+Ox3, euthymic affect Results & Data Vital Signs (Past 12 Hours) Vital Signs Temp Pulse Resp BP Pulse Ox O2 Del Method 05/08/23 08:04 65 18 147/76 H 94 Room Air 05/08/23 06:48 37.2 C 66 16 145/79 H 92 Room Air PG Care Time/CCT Total # of Minutes Spent Total Time Spent with Patient: Total time spent is greater than 50% in coordination of care (as documented) at patient's floor/unit and/or counseling patient: Coding Level of Care Code 52143 SUB INP/OBS CARE 2/35MIN Diagnoses Calculus of left ureter N20.1 Hydronephrosis, left N13.30
--- NOTE | 2023-05-08 15:09 | Nuclear Medicine Report ---
NUCLEAR HEPATOBILIARY SCAN CLINICAL HISTORY: Cholelithiasis. Abnormal gallbladder seen on CT and MRI. COMPARISON STUDY: MRCP dated 05/07/2023. Abdominal CT dated 05/06/2023. TECHNIQUE: Static images of the liver and anterior abdomen were obtained at 5 minutes, 20 minutes, 30 minutes, and 40 minutes minutes following the IV administration of 5.0 mCi of technetium 99m Mebrofe naseem. FINDINGS: The hepatobiliary scan shows prompt and homogeneous hepatic uptake. There is visualized act ivity within the intra and extrahepatic biliary tree at 20 minutes, and within the gallbladder at 30 minutes. There is normal biliary to bowel transit, with small bowel visualized by 20 minutes. IMPRESSION: There is no scintigraphic evidence of acute cholecystitis. ACT 112: Negative or not required by law. Electronically signed by: Zenon Montgomery M.D. 05/08/2023 3:07 PM
--- NOTE | 2023-05-08 15:23 | Discharge Summary ---
Date of Service May 08, 2023 Admission HPI Per Admitting Provider The patient is a 72-year-old female with a past medical history including CAD, hypertension, hyperlipidemia, and distant history of diverticulitis. She presents to the emergency department with rapidly worsening lower abdominal pain, and nearly passed out in the morning emergency department due to its intensity. She denies any recent travels or sick exposures. She denies any change in her usual dietary intake. Principal Diagnosis Diverticulitis Left-sided ureteral stone Enlarged common bile duct negative workup for infection Discharge Exam Awake alert appropriate. Particular abdominal pain Discharge Data Allergies Allergy/AdvReac Type Severity Reaction Status Date / Time Cephalosporins Allergy Severe Anaphylaxis Verified 05/06/23 17:02 Penicillins Allergy Severe Anaphylaxis Verified 05/06/23 17:02 bee venom protein (honey bee) Allergy Intermediate Arm Verified 05/06/23 17:02 swelling Jnbkzoh-FHQ-UaA Reductase AdvReac Intermediate Abnormal Verified 05/06/23 17:02 Inhibitor labs [Jvdrlvz-Xgo-Lhd Reductase Inhibitor] Consultations 05/06/23 20:12 Consult Gastroenterology Routine pursued MRCP and HIDA scan with no suggestion of acute cholecystitis. This was done due to dilated common bile duct Consult Urology Routine discussion of left ureteral stone no ill effects on renal function no systemic effects of pain and no effects of urinary infection. Would recommend follow-up in the office if needed no immediate follow-up required Ordered Studies Abdomen/Pelvis CT 05/06/23 13:[address] WITH IV CONTRAST CT DOSE: 897.02 mGy.cm HISTORY: Acute lower abdominal pain Lower abdominal pain TECHNIQUE: Multiaxial CT images of the abdomen and pelvis were performed following the IV administration of 92 cc of Optiray, A dose lowering technique was utilized adhering to the principles of ALARA. COMPARISON STUDY: None. FINDINGS: Cardiomegaly with coronary artery calcifications. Mild subsegmental bibasilar atelectasis. 4 mm indeterminate low suspicion solid nodule of the basal left lower lobe on image 27. No pneumoperitoneum identified. Unremarkable spleen and left adrenal gland. Indeterminate soft tissue attenuating 2 cm right adrenal gland lesion. Cholelithiasis without CT evidence of acute cholecystitis. The common bile duct is upper limits of normal at 7 mm. Mild dilation of the pancreatic duct at the level of the pancreatic head measuring up to 6 mm. Possible punctate stone within the duodenal ampulla on i mage 129. Minimal intrahepatic biliary ductal prominence. Patent portal vein. Exophytic 2.27 m cyst of the inferior pole left kidney. 3 mm nonobstructing calculus of the superior pole right kidney with a punctate calculus of the inferior pole. Mild left-sided hydronephrosis with 4 mm calculus of the distal left ureter on image 265 position a few centimeters up stream to the ureterovesicular junction. Atherosclerosis of the aorta. Subcentimeter retroperitoneal lymph nodes may be reactive. Heterogeneous uterus with scattered calcifications. Mild urinary bladder wall thickening. Small hiatal hernia with mild distal esophageal wall thickening. Duodenal diverticulum. Colonic diverticulosis. There is moderate wall thickening within the mid sigmoid colon on image 245 series 3 resulting in associated luminal narrowing. There is a large diverticulum of the proximal sigmoid measuring up to 3.3 cm on image 263. There are adjacent inflammatory changes in the sigmoid mesocolon with trace free pelvic fluid. Lymph nodes within the sigmoid mesocolon measuring up to 8 mm. Subcentimeter perirectal lymph nodes. Moderate colonic fecal retention. Appendectomy. Tiny fat filled umbilical hernia. No acute fracture. IMPRESSION: 1. Colonic diverticulosis with moderate wall thickening within the sigmoid and rectum. Additionally, there is pericolonic and perirectal inflammatory stranding with trace free fluid. Findings are favored to represent acute on chronic diverticulitis. Correlation with follow-up colonoscopy recommended in order to exclude an underlying mucosal neoplasm. 2. Mild perirectal and sigmoid mesocolon lymphadenopathy. 3. No pneumoperitoneum or drainable fluid collection. 4. Mild left-sided hydronephrosis secondary to an obstructing 4 mm calculus of the distal left ureter. 5. Cholelithiasis is noted with mild common bile and pancreatic ductal dilation. Possible punctate calculus within the duodenal ampulla. Correlate with laboratory analysis and GI consultation. 6. Right nephrolithiasis. Electronically signed by: Ronnell Ruiz M.D. 05/06/2023 3:54 PM Cholangiopancreatography MRI 05/07/23 11:26 MR MRCP HISTORY: 72 years-old Female cbd and panc ducts dilation; ? duodenal stone acute generalized abdominal pain COMPARISON: CT abdomen and pelvis 05/06/2023 TECHNIQUE: MRCP obtained without the use of IV contrast according to institutional protocol. FINDINGS: The study is mildly motion degraded. Cardiomegaly. Distended gallbladder with cholelithiasis. There is a small amount of pericholecystic fluid without definite focal bladder wall thickening. The common bile duct measures near the limits of normal at 6 mm. Duct is mildly dilated at 4 mm. No choledocholithiasis or biliary strictures identified. No evidence of pancreatic divisum. No evidence of acute pancreatitis. There is persistent left-sided hydronephrosis with asymmetric left perinephric stranding. 1.9 cm cyst of the inferior pole right kidney. Mild dilation of the right renal collecting system. Normal caliber of the aorta. Subcentimeter retroperitoneal lymph nodes are again seen. No bowel obstruction. Colonic diverticulosis. No acute fracture. IMPRESSION: 1. Motion degraded exam. 2. Distended gallbladder with cholelithiasis and pericholecystic fluid. No definite gallbladder wall thickening. Findings could be correlated with nuclear medicine hepatobiliary scan in order to exclude acute cholecystitis. 3. Borderline dilation of the common bile and pancreatic ducts. No definite choledocholithiasis identified on this exam. 4. Persistent left-sided hydronephrosis. Please refer to the CT abdomen and pelvis study dated 05/06/2023 for additional findings. ACT 112: Negative or not required by law. The above report was generated using voice recognition software. It may contain grammatical, syntax or spelling errors. Hepatobiliary Scan Nuclear Medicine 05/08/23 08:15 NUCLEAR HEPATOBILIARY SCAN CLINICAL HISTORY: Cholelithiasis. Abnormal gallbladder seen on CT and MRI. COMPARISON STUDY: MRCP dated 05/07/2023. Abdominal CT dated 05/06/2023. TECHNIQUE: Static images of the liver and anterior abdomen were obtained at 5 minutes, 20 minutes, 30 minutes, and 40 minutes minutes following the IV administration of 5.0 mCi of technetium 99m Mebrofenin. FINDINGS: The hepatobiliary scan shows prompt and homogeneous hepatic uptake. There is visualized activity within the intra and extrahepatic biliary tree at 20 minutes, and within the gallbladder at 30 minutes. There is normal biliary to bowel transit, with small bowel visualized by 20 minutes. IMPRESSION: There is no scintigraphic evidence of acute cholecystitis. Electronically signed by: Zenon Montgomery M.D. 05/08/2023 3:07 PM Hospital Course (1) Diverticulitis: Acute on chronic diverticulitis/lymphadenopathy- Patient has severe reaction to penicillins and cephalosporins Patient tolerated advancing diet pain control as well will go home for 10-day total course of Cipro Flagyl last dose in about May 16 (2) Calculus of left ureter: 4 mm distal left ureteral calculus/mild left hydronephrosis- Patient has not had any urinary symptoms Antibiotics treating diverticulitis would also treat any urinary issues Consult urology. discussed procedure if pain, infection or renal compromise (3) Gallstones: CBD dilation and stone seen in the ampulla in small bowel Gastroenterology ordered MRCP-discovery of Chollithiasis with pericholecystic fluid cannot rule out acute cholecystitis recommending HIDA scan which is ordered does not suggest acute cholecystitis therefore no further evaluation is required no clinical symptoms Remains on Cipro Flagyl for diverticulitis which should also cover any GI related issues normal LFTs (4) Syncope, near: vagal response due to abdominal pain , now controlled no recurrence (5) Coronary artery disease: (6) Hypertension: also CAD, continues on metoprolol pre admission also taking aspirin, losartan, and ezetimibe(history of statin myopathy) Plan Total Time Total Time Spent Total Time Spent (In Minutes): It required greater than 30 minutes to prepare this patient for discharge. Discharge Plan Discharge Items Patient Disposition: Home - Self-Care Reason For Visit: DIVERTICULITIS, DISTAL LEFT URETERAL STONE/MILD HY Discharge Diagnosis: diverticulitis left kidney stone Activity: Resume your previous activity Non-emergency contact: Primary Care Provider Call non-emergency contact if: your symptoms worsen Follow-up/Referrals: Santos Dunn, [Primary Care Provider] - Diet: Regular Diet Comment: high fiber diet Addtl Attending Provider Instructions: Please complete your antibiotics as prescribed Cipro and Flagyl 10-day total course, start your antibiotics in the evening of 05/08/23 Please have a high-fiber diet and ensure that you have a least 1 good soft bowel movement a day this can be accomplished by having fiber in your diet having good hydration and adding you have been Metamucil or even MiraLAX therapy. Flag signs to look for to come back to the hospital would be fevers worsening pain in your abdomen or having bloody bowel movements. As you are aware we did identify a kidney stone in your left tube to drain your kidney to your bladder this seems to not be causing a problem right now if you develop left-sided back pain or front abdomen pain please return for evaluation or call the urology team Although you have slightly enlarged bile ducts all testing on your liver and biliary system have come back favorable and there is no concern for acute infection at this time Pending Studies at Discharge: No Stand-Alone Forms: My [facility], Smoking Cessation Medications and DC Order Prescriptions: New ciprofloxacin HCl [Cipro] 500 mg tablet 500 mg PO BID Qty: 17 0RF metronidazole 500 mg tablet 500 mg PO TID Qty: 25 0RF Continued Calcium 600 with Vitamin D3 600 mg(1,500mg) -400 unit tablet,chewable 1 tab PO DAILY omega-3 fatty acids 1,000 mg capsule 1,000 mg PO DAILY Adult 50 Plus Probiotic 4 billion cell capsule 4,000 mmu cells PO DAILY cholecalciferol (vitamin D3) 1,000 unit capsule 1,000 units PO DAILY nitroglycerin 0.4 mg tablet, sublingual 0.4 mg SL DIRECTED PRN (Reason: Chest Pain) Qty: 25 3RF Rx Instructions: PLACE ONE TABLET UNDER THE TONGUE EVERY 5 MINUTES FOR UP TO 3 DOSES OVER 15 MINUTES IF NEEDED FOR CHEST PAIN ezetimibe [Zetia] 10 mg tablet 10 mg PO DAILY Qty: 90 3RF losartan 50 mg tablet 50 mg PO QAM Qty: 90 3RF metoprolol tartrate 25 mg tablet 12.5 mg PO BID Qty: 180 3RF aspirin 81 mg tablet,delayed release (DR/EC) 81 mg PO QPM multivitamin [Daily Multi-Vitamin] tablet 1 tab PO DAILY calcium polycarbophil [Fiber-Tabs] 625 mg tablet 625 mg PO DAILY Discharge Orders: Discharge Order (Routine); Ordered 05/08/23 Ordered By: Alex Roman Admission Data Admit Date/Time: 05/06/23 17:03 Attending Provider: Alex Roman Admit Provider: Michael Osorio Primary Care Provider: Santos Dunn Other Providers: Michael Osorio; Sean Bolanos; Marcellus Anaya Coding Level of Care Code 75371 INP/OBS DISCH >30 MIN Diagnoses Diverticulitis K57.92 Calculus of left ureter N20.1 Gallstones K80.20 Syncope, near R55 Coronary artery disease I25.10 Hypertension I10
== END 2023-05-08 16:05 | disposition home or self-care (01) | DRG 392 ==
LOC: ED 13:41 → SUATTDRO 17:03 → EDINP 17:03 → 3N 20:13